=== PATIENT | female | born 1990 | race Caucasian/White ===

== ENCOUNTER → 2016-09-26 | Outpatient (CLI) | payer OTHER ==
[~2016-09-26] MED LIST: ALBUAER19 INH; AMOX875T PO; ATV/1 PO; BSP/10 PO; CHOL20007 PO; CITA40TA4 PO; CLC/300 PO; CLR10 PO; ETONMIS VAGRING; HYDR-5688 PO; INSDGIPEN SC; LEUP11.23 INJ; LORA-741 PO; LXP10 PO; METF-384 PO; NORE5TAB5 PO; PRAZ2CAP2 PO; TRIA1SPR4 NAE; VST25HP PO
== END | disposition home or self-care (01) ==
LOC: C.PAPS 14:22
PROVIDERS: ATTEND Obstetrics & Gynecology
DX: Z12.4 Encounter for screening for malignant neoplasm of cervix (principal)

== ENCOUNTER → 2016-09-26 | Outpatient (CLI) | payer OTHER ==
[2016-09-26 14:31] LABS: URINE APPEARANCE CLEAR (CLEAR); URINE BILIRUBIN NEG (NEG); URINE COLOR YELLOW; URINE NITRITE NEG (NEG); URINE PH 5.5 (4.5-7.5); URINE SPECIFIC GRAVITY 1.025 (1.000-1.030); UROBILINOGEN NEG (NEG)
[2016-09-26 14:48] LABS: MANUAL MICROSCOPIC REQUIRED? NO; REVIEW REQ? NO
== END | disposition home or self-care (01) ==
LOC: C.LABSPEC 13:22
PROVIDERS: ATTEND Obstetrics & Gynecology
DX: R39.9 Unspecified symptoms and signs involving the genitourinary system (principal)

== ENCOUNTER → 2016-10-24 | Outpatient (CLI) | payer OTHER ==
[2016-10-24 12:07] LABS: CHOLESTEROL/HDL RATIO 2.2
== END | disposition home or self-care (01) ==
LOC: C.LAB1850 10:12
PROVIDERS: ATTEND Family Medicine
DX: Z00.00 Encounter for general adult medical examination without abnormal findings (principal)

== ENCOUNTER 2016-11-12 19:19 | Emergency (ER) | payer OTHER ==
[~2016-11-12] VITALS: Ht 154.9 cm; Wt 67.7 kg
[~2016-11-12 19:19] MED LIST changes: -AMOX875T PO; -ATV/1 PO; -CHOL20007 PO; -CLC/300 PO; -INSDGIPEN SC; -LEUP11.23 INJ; -LXP10 PO; -NORE5TAB5 PO; -PRAZ2CAP2 PO; -VST25HP PO
[2016-11-12 19:24] VITALS: TEMP 37; Ht 154.9 cm; Wt 67.7 kg
[2016-11-12] MEDS ORDERED: CLC/300 PO (19:44)
[2016-11-12] MEDS ORDERED: AMOX875T PO (19:59)
[2016-11-12] MEDS ORDERED: AMOXICIL/CLAVU 875MG HOME PACK PO ONE (20:00)
[2016-11-12 20:33] VITALS: BP 114/72; PULSE 79; O2SAT 98
--- NOTE | 2016-11-12 20:38 | EMERGENCY ROOM VISIT NOTE ---
History First contact with patient: 19:43 Chief Complaint: SINUS CONGESTION/PRESSURE Stated Complaint: SINUSES,CHEST CONGESTION,HEADACHE Nursing Triage Summary: Patient ambulatory to triage, states "I am having chest pains with pain when I breathe. My ears are hurting. I have been queezy today. I am basically here for a chest xray." History of Present Illness The patient is a 26 year old female who presents to the Emergency Room with complaints of persistent sinus congestion and yellow productive cough. The patient reports that she has been dealing with a sinus infection for the past month. She was recently treated with clindamycin antibiotics without relief of her symptoms. She has had a productive cough for the past 2 weeks. She denies any headaches, fevers or chills. She rates her overall discomfort a 4 out of 10. Review of Systems 10 system review was performed and was negative except for pertinent positives and negatives as indicated in history of present illness Past Medical/Surgical History Medical Problems: (1) Asthma (2) Endometriosis (3) History of - tubal ligation (4) Left ovary removal (5) Pneumonia Surgical Problems: (1) H/O section (2) S/P laparoscopy Family History Cancer Diabetes mellitus Gallbladder disease Heart disease Hypertension Kidney disease Kidney stones Lung disease Seizures Social History Smoking Status: Never Smoker Alcohol Use: none Drug Use: none Marital Status: Housing Status: lives with family Occupation Status: unemployed Current/Historical Medications Scheduled Amoxicillin & Pot Clavulanate (Augmentin 875-125 mg), 1 TAB PO BID Buspirone HCl (Buspirone HCl), 10 MG PO HS Citalopram (Citalopram Hydrobromide), 40 MG PO HS Clindamycin HCl (Clindamycin HCl), 1 CAP PO QID Hydroxyzine HCl (Hydroxyzine Pamoate), 50 MG PO HS Loratadine (Claritin), 10 MG PO DAILY Metformin Hcl (Glucophage), 1,000 MG PO DAILY Prazosin Hcl (Prazosin), 2 MG PO HS Scheduled PRN Albuterol Inhaler (Ventolin Inhaler), 2-6 PUFFS INH for chest tightness,sob, mucus Lorazepam (Ativan), 0.5 MG PO TID PRN for Anxiety Triamcinolone Acetonide (Nasal (Nasacort Allergy 24Hr), 1 SPRAY NGA DAILY PRN for Nasal Congestion Allergies Coded Allergies: Cat Dander (Verified Allergy, Intermediate, HIVES, CONGESTION, 11/12/16) Dog Dander (Verified Allergy, Intermediate, HIVES, CONGESTION, 11/12/16) Grass (Verified Allergy, Intermediate, HIVES,CONGESTION, 11/12/16) Physical Exam Vital Signs Date Time Temp Pulse Resp B/P Pulse Ox O2 Delivery O2 Flow Rate FiO2 11/12/16 19:24 97 Room Air 11/12/16 19:24 37.0 94 18 121/73 97 Room Air Physical Exam CONSTITUTIONAL: Healthy and well nourished. Alert and oriented X 3 with positive affect. Patient does not appear acutely or toxic. HEENT: Normocephalic, atraumatic. Pupils equal, round and reactive. No facial edema noted. The patient has mild tenderness to palpation and percussion of the maxillary sinuses. Examination of the ears shows TM bulging without air-fluid levels or purulent effusion. OROPHARYNX: Minimal posterior pharyngeal erythema. No postnasal drip appreciated. NECK: Full active range of motion without discomfort. RESPIRATORY: Clear to auscultation bilaterally with no wheezing, crackles, rhonchi or stridor. CARDIOVASCULAR: Regular rate and rhythm with no murmurs, rubs or gallops. GASTROINTESTINAL: Bowel sounds present in all quadrants. Soft and nontender to palpation. MUSCULOSKELETAL: Full range of motion of all joints without discomfort. INTEGUMENTARY: No rash or other significant dermatologic conditions noted. NEUROLOGIC: No focal neurologic deficits noted. Medical Decision & Procedures Medications Administered Medications (Trade) Dose Ordered Sig/Dinah Route Start Time Stop Time Status Last Admin Dose Admin Amoxicillin/ Clavulanate Potassium (Augmentin 875MG Home Pack) 1 homepack UD ONCE PO 11/12/16 20:00 11/12/16 20:02 DC 11/12/16 20:29 1 HOMEPACK ED Course Patient history and physical exam were performed. Nurse's notes were reviewed. Vital signs were reviewed and were normal. I did elect to treat the patient with Augmentin antibiotics. She was instructed to continue follow-up with her ENT physician for further management. Ibuprofen and Tylenol in alternating fashion if needed for additional relief. The patient was happy with plan of care, and voiced understanding of all discharge instructions. Impression Primary Impression: Acute sinusitis treated with antibiotics in the past 60 days Departure Information Dispostion Home / Self-Care Prescriptions Amoxicillin & Pot Clavulanate (Augmentin 875-125 mg) 1 Tab Tab 1 TAB PO BID for 10 Days, #20 TAB Prov: Ramy Crump PA 11/12/16 Forms HOME CARE DOCUMENTATION FORM, IMPORTANT VISIT INFORMATION Patient Instructions My [facility] Additional Instructions Complete all Augmentin antibiotics as prescribed. Continue with your current treatment regimen as recommended by your ENT physician. Ibuprofen 800 mg and/or Tylenol 1000 mg every 8 hours. You may also alternate these medications for more effective pain relief: Ibuprofen --4 HRS--> Tylenol --4 HRS--> ibuprofen --4 HRS--> Tylenol .... Follow-up with your ENT in 10-14 days for reevaluation, sooner for any worsening symptoms. FOR WORK: Patient was in the emergency department today, Saturday11/12/16 from 7: 20-8:20 pm.
[2017-04-28] MEDS ORDERED: VST25HP PO (15:33)
[2017-04-28] MEDS ORDERED: PRAZ2CAP2 PO (15:33)
== END 2016-11-12 20:35 | disposition home or self-care (01) ==
LOC: C.EDB 19:21 → C.EDD 20:35
DX: J01.90 Acute sinusitis, unspecified (principal); J45.909 Unspecified asthma, uncomplicated; Z90.721 Acquired absence of ovaries, unilateral; Z87.01 Personal history of pneumonia (recurrent); Z83.3 Family history of diabetes mellitus; Z84.1 Family history of disorders of kidney and ureter

== ENCOUNTER 2016-12-04 10:39 | Emergency (ER) | payer OTHER ==
[~2016-12-04] VITALS: Ht 156.2 cm; Wt 64.8 kg
[~2016-12-04 10:39] MED LIST changes: +CLC/300 PO; -ETONMIS VAGRING; -HYDR-5688 PO
[2016-12-04 10:45] VITALS: Ht 156.2 cm; Wt 64.8 kg
[2016-12-04] MEDS ORDERED: SODIUM CHLORIDE 0.9% 1000ML 1,000 ML IV STA ×2 (11:23→12:11)
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
[2016-12-04 11:56] VITALS: O2SAT 95
[2016-12-04 11:58] VITALS: TEMP 36.8
[2016-12-04 12:01] LABS: BASO % 0.1 %; BASO ABS # 0.01 K/uL (0-0.2); COMPLETE YES; EOS % 2.4 %; IG% 0.3 %; LYMPH % 28.8 %; LYMPH ABS # 2.03 K/uL (1.2-3.4); MEAN CELL VOLUME 89.8 fL (80-100); MEAN CORPUSCULAR HEMOGLOBIN 30.7 pg (25-34); MEAN CORPUSCULAR HGB CONC 34.2 g/dl (32-36); MEAN PLATELET VOLUME 10.3 fL (7.4-10.4); MONO % 7.1 %; NEUT % 61.3 %; PLATELET COUNT 225 K/uL (130-400); RED BLOOD COUNT 4.23 M/uL (4.2-5.4); WHITE BLOOD COUNT 7.05 K/uL (4.8-10.8)
[2016-12-04 12:03] LABS: URINE APPEARANCE CLEAR (CLEAR); URINE BILIRUBIN NEG (NEG); URINE COLOR YELLOW; URINE NITRITE NEG (NEG); URINE PH 8.5 (4.5-7.5); UROBILINOGEN NEG (NEG)
[2016-12-04 12:11] LABS: MANUAL MICROSCOPIC REQUIRED? NO; REVIEW REQ? NO
[2016-12-04 12:21] LABS: ALT/SGPT 17 U/L (12-78); BLOOD UREA NITROGEN 10 mg/dl (7-18); BUN/CREATININE RATIO 12.7 (10-20); CALCIUM 9.7 mg/dl (8.5-10.1); CARBON DIOXIDE 28 mmol/L (21-32); CHLORIDE 106 mmol/L (98-107); CREATININE 0.82 mg/dl (0.60-1.20); GLUCOSE 102 mg/dl (70-99); POTASSIUM 3.8 mmol/L (3.5-5.1); SODIUM 140 mmol/L (136-145)
[2016-12-04 12:29] LABS: BENZODIAZEPINE, URINE NEG (NEG); COCAINE,URINE NEG (NEG); PHENCYCLIDINE, URINE NEG (NEG)
[2016-12-04 12:32] LABS: ALKALINE PHOSPHATASE 75 U/L (45-117); AST/SGOT 13 U/L (15-37)
[2016-12-04] MEDS ORDERED: LORAZEPAM 1 MG TAB SL STA (14:38)
[2016-12-04] MEDS ORDERED: ATV/1 PO (14:41)
[2016-12-04 15:00] VITALS: BP 119/72; PULSE 96; O2SAT 98
[2017-04-28] MEDS ORDERED: VST25HP PO (15:33)
[2017-04-28] MEDS ORDERED: PRAZ2CAP2 PO (15:33)
== END 2016-12-04 15:30 | disposition home or self-care (01) ==
LOC: C.EDB 10:41 → C.EDA 15:30
DX: R42 Dizziness and giddiness (principal); F41.9 Anxiety disorder, unspecified; I95.1 Orthostatic hypotension; J45.909 Unspecified asthma, uncomplicated; Z83.3 Family history of diabetes mellitus; Z82.49 Family history of ischemic heart disease and other diseases of the circulatory system; Z82.0 Family history of epilepsy and other diseases of the nervous system; F17.200 Nicotine dependence, unspecified, uncomplicated

== ENCOUNTER → 2016-12-11 | Outpatient (CLI) | payer OTHER ==
[~2016-12-11] MED LIST changes: +AMOX875T PO; +ATV/1 PO; +CHOL20007 PO; -CLC/300 PO; +INSDGIPEN SC; +LEUP11.23 INJ; +LXP10 PO; +NORE5TAB5 PO; +PRAZ2CAP2 PO; +VST25HP PO
[2016-12-11 09:46] LABS: ALT/SGPT 17 U/L (12-78); AST/SGOT 12 U/L (15-37); BLOOD UREA NITROGEN 13 mg/dl (7-18); BUN/CREATININE RATIO 16.5 (10-20); CALCIUM 8.8 mg/dl (8.5-10.1); CARBON DIOXIDE 27 mmol/L (21-32); CHLORIDE 107 mmol/L (98-107); CREATININE 0.78 mg/dl (0.60-1.20); GLUCOSE 101 mg/dl (70-99); POTASSIUM 3.8 mmol/L (3.5-5.1); SODIUM 141 mmol/L (136-145)
[2016-12-11 09:49] LABS: ALB/GLOB RATIO 1.1 (0.9-2); ALKALINE PHOSPHATASE 65 U/L (45-117)
[2016-12-11 10:23] LABS: ESTIMATED AVERAGE GLUCOSE 114 mg/dl; HA1C FLAG Normal (Normal)
== END | disposition home or self-care (01) ==
LOC: C.LAB1850 08:37
PROVIDERS: ATTEND Family Medicine
DX: E11.9 Type 2 diabetes mellitus without complications (principal); E55.9 Vitamin D deficiency, unspecified

== ENCOUNTER 2017-02-16 14:03 | Emergency (ER) | payer OTHER ==
[~2017-02-16] VITALS: Ht 154.9 cm; Wt 66.0 kg
[~2017-02-16 14:03] MED LIST changes: -AMOX875T PO; -ATV/1 PO; -CHOL20007 PO; -INSDGIPEN SC; -LEUP11.23 INJ; -LXP10 PO; -NORE5TAB5 PO; -PRAZ2CAP2 PO; -VST25HP PO
[2017-02-16 14:07] VITALS: TEMP 36.7; Ht 154.9 cm; Wt 66.0 kg
--- NOTE | 2017-02-16 15:03 | DIAGNOSTIC IMAGING REPORT ---
RIGHT ANKLE 3 VIEWS HISTORY: Right ankle pain. Injury. COMPARISON: None. FINDINGS: There is no fracture or dislocation. Lateral soft tissue swelling. No radiopaque foreign bodies. IMPRESSION: No fractures. Electronically signed by: Noé Mcmanus M.D. 02/16/2017 3:02 PM Dictated Date/Time: 02/16/2017 3:01 PM
[2017-02-16] MEDS ORDERED: IBUPROFEN 600 MG TAB PO STA (15:20)
[2017-02-16 15:39] VITALS: BP 117/64; PULSE 98; O2SAT 98
--- NOTE | 2017-02-16 17:37 | EMERGENCY ROOM VISIT NOTE ---
ED Visit Note First contact with patient: 15:16 Chief complaint: Right ankle pain. HPI: This 26-year-old white female presents to the emergency room for evaluation of her right ankle. The patient injured the ankle today around noon. She was walking and stepped in a hole, inverting her ankle. Since that time, they have had persistent pain over the lateral portion of the ankle. She denies any numbness or tingling. Pain is worse with weight-bearing. She has been walking with a limp. no knee or hip pain. There was a snap with injury. Treatment has consisted of ice provided in the ER. No prior history of significant ankle injury. Pain is 9/10. REVIEW OF SYSTEM: HEENT: No dizziness, visual problems, hearing loss, tinnitus. There is no difficulty swallowing and no oral lesions are present. PULMONARY: No cough, shortness of breath, sputum production or hemoptysis. CARDIOVASCULAR: No chest pain, palpitations, shortness of breath or peripheral edema. GASTROINTESTINAL: No diarrhea, constipation, nausea, vomiting, or abdominal pain. GENITOURINARY: No dysuria, frequency, urgency or nocturia. NEUROLOGIC: No weakness, muscle tenderness, epilepsy or history of neurological problems. MUSCULOSKELETAL: No history of joint tenderness/swelling. No history of arthritis or arthralgias. SKIN: No rashes or lesions. PSYCHIATRIC: No history of depression or mental illness. ENDOCRINE: No history of thyroid disorders, abnormal hair growth. PAST MEDICAL HISTORY: Supplemental sheet was reviewed and signed. Previous surgeries: None Medical history: Significant for diabetes, history of bronchitis, history of pneumonia, and asthma Current medications: Filed in patient's chart Allergies: NKDA Family history: Significant for diabetes, heart disease, hypertension, cancer, lung disease, kidney stones, and seizure history Social history: Unemployed. . No tobacco use. PHYSICAL EXAM: Vitals: Afebrile. Reviewed and filed in patient's chart General: Well-developed, well-nourished, young white female, in obvious discomfort. No acute distress. She is laying on a bed. Alert and oriented. Skin:Warm and dry with good turgor. No rashes or lesions. No erythema. The patient is not diaphoretic. No abrasions. Edema is present over the lateral and posterior ankle. Musculoskeletal: Right ankle evaluation reveals no pain with palpation across the knee or proximal tibia or fibula. There is pain with palpation over the lateral malleolus and the lateral ligaments. No pain over the medial malleolus or deltoid ligament. Achilles' tendon is palpated to its entirety and found to be intact and without defect. Normal Storey test. No pain with palpation of the calcaneus, fifth metatarsal base, midfoot, forefoot, or toes. Motor function to the toes is intact and unremarkable. Motor function to the ankle is intact but range of motion is limited by pain. Strength is 5/5 for resisted motion. Positive anterior drawer, negative calcaneal tilt. Neurologic: Gross sensation is intact across all aspects of the foot and ankle via soft touch. Peripheral pulses are 2+. Data: Radiographic images of the ankle were obtained today and were reviewed by me as well as radiology. They are unremarkable for fracture or other bony abnormality. IMPRESSION: Right ankle sprain. PLAN: The patient was educated regarding today's findings. Conservative care measures were discussed. Patient was given an Gino wrap for edema control and will use this for the next 5 days. Ankle gel splint was also applied and will be used for support for the next 3 weeks. It may be removed for bathing and sleep. It should be used for a few additional weeks for sporting events only. Crutches were fitted and crutch instruction was reviewed. Discontinue crutch use when she is able to walk without a limp. Weight-bear as tolerable. Gentle motion daily. Ice and elevate intermittently over the next 3 days, after which she may switch to moist heat. Lower leg should be elevated at night during sleep. Tylenol and ibuprofen every 6 hours as needed for discomfort. Sprain handout was provided. Return to the ER for any acute changes. Follow-up with her PCP or orthopedist if not improving in 5 to 7 days. She was reassured that I do not suspect fracture or tendon rupture at this time. Problem List Medical Problems: (1) Asthma Status: Chronic (2) Endometriosis Status: Chronic (3) History of - tubal ligation Status: Resolved (4) Left ovary removal Status: Resolved (5) Pneumonia Status: Resolved Surgical Problems: (1) H/O section Status: Resolved (2) S/P laparoscopy Status: Resolved Current/Historical Medications Scheduled Buspirone HCl (Buspirone HCl), 10 MG PO HS Citalopram (Citalopram Hydrobromide), 40 MG PO HS Hydroxyzine HCl (Hydroxyzine Pamoate), 50 MG PO HS Loratadine (Claritin), 10 MG PO DAILY Metformin Hcl (Glucophage), 1,000 MG PO DAILY Prazosin Hcl (Prazosin), 2 MG PO HS Scheduled PRN Albuterol Inhaler (Ventolin Inhaler), 2-6 PUFFS INH for chest tightness,sob, mucus Lorazepam (Ativan), 0.5 MG PO TID PRN for Anxiety Triamcinolone Acetonide (Nasal (Nasacort Allergy 24Hr), 1 SPRAY NGA DAILY PRN for Nasal Congestion Allergies Coded Allergies: Cat Dander (Verified Allergy, Intermediate, HIVES, CONGESTION, 12/04/16) Dog Dander (Verified Allergy, Intermediate, HIVES, CONGESTION, 12/04/16) Grass (Verified Allergy, Intermediate, HIVES,CONGESTION, 12/04/16) Vital Signs Date Time Temp Pulse Resp B/P (MAP) Pulse Ox O2 Delivery O2 Flow Rate FiO2 02/16/17 15:39 98 18 117/64 98 Room Air 02/16/17 14:07 36.7 73 16 109/65 100 Room Air Medications Administered Medications (Trade) Dose Ordered Sig/Dinah Route Start Time Stop Time Status Last Admin Dose Admin Ibuprofen (Motrin Tab) 600 mg NOW STAT PO 02/16/17 15:20 02/16/17 15:25 DC 02/16/17 15:38 600 MG Departure Information Impression Primary Impression: Right ankle sprain Dispostion Home / Self-Care Condition FAIR Forms HOME CARE DOCUMENTATION FORM, MOTRIN USE, TYLENOL USE, IMPORTANT VISIT INFORMATION Patient Instructions My [facility] [employer] Additional Instructions Use crutches until you can walk without a limp- weight-bear as tolerable Ice and elevate intermittently x3 days, and then use moist heat Tylenol and ibuprofen every 6 hours as needed for pain Gentle motion daily See your PCP or orthopedist if not improving over 5-7 days Use gel splint at all times other than bathing and sleep for 4 weeks, and then use it for an additional 2 weeks for any sporting activity
[2017-04-28] MEDS ORDERED: VST25HP PO (15:33)
[2017-04-28] MEDS ORDERED: PRAZ2CAP2 PO (15:33)
== END 2017-02-16 15:48 | disposition home or self-care (01) ==
LOC: C.EDB 14:05 → C.EDD 15:48
DX: S93.401A Sprain of unspecified ligament of right ankle, initial encounter (principal); X58.XXXA Exposure to other specified factors, initial encounter; E11.9 Type 2 diabetes mellitus without complications; J45.909 Unspecified asthma, uncomplicated; Z83.3 Family history of diabetes mellitus; Z82.49 Family history of ischemic heart disease and other diseases of the circulatory system; Z84.1 Family history of disorders of kidney and ureter; Z82.0 Family history of epilepsy and other diseases of the nervous system; Z80.9 Family history of malignant neoplasm, unspecified; Z98.51 Tubal ligation status; Z98.890 Other specified postprocedural states; Z79.899 Other long term (current) drug therapy; Z91.09 Other allergy status, other than to drugs and biological substances

== ENCOUNTER → 2017-04-08 | Outpatient (CLI) | payer OTHER ==
[~2017-04-08] MED LIST changes: +AMOX875T PO; +CHOL20007 PO; +INSDGIPEN SC; +LEUP11.23 INJ; +LXP10 PO; +NORE5TAB5 PO; +PRAZ2CAP2 PO; +VST25HP PO
[2017-04-10 03:03] LABS: CHLAMYDIA TRACH RNA*** NOT DETECTED (NOT DETECTED); GC (NEIS GONORRHOEAE)RNA** NOT DETECTED (NOT DETECTED)
== END | disposition home or self-care (01) ==
LOC: C.LAB1850 09:16
PROVIDERS: ATTEND Physician Assistant
DX: Z11.3 Encounter for screening for infections with a predominantly sexual mode of transmission (principal)

== ENCOUNTER 2017-04-28 19:19 | Emergency (ER) | payer OTHER ==
[~2017-04-28] VITALS: Ht 154.9 cm; Wt 64.9 kg
[~2017-04-28 19:19] MED LIST changes: -AMOX875T PO; -CHOL20007 PO; -INSDGIPEN SC; -LEUP11.23 INJ; -LXP10 PO; -NORE5TAB5 PO
[2017-04-28 19:25] VITALS: TEMP 37.1; Ht 154.9 cm; Wt 64.9 kg
[2017-04-28] MEDS ORDERED: LORAZEPAM 1 MG TAB SL STA (19:44)
[2017-04-28] MEDS ORDERED: LXP10 PO (19:51)
[2017-04-28] MEDS ORDERED: NORE5TAB5 PO (19:52)
[2017-04-28] MEDS ORDERED: CHOL20007 PO (19:52)
[2017-04-28] MEDS ORDERED: LEUP11.23 INJ (19:58)
--- NOTE | 2017-04-28 20:02 | EMERGENCY ROOM VISIT NOTE ---
History Report prepared by Debo: Tomer Mary Under the Supervision of: Dr. Sony Ward M.D. First contact with patient: 19:40 Chief Complaint: ANXIETY Stated Complaint: ANXIETY ATTACKS, CHEST PAIN, SHAKING History of Present Illness The patient is a 26 year old female who presents to the Emergency Room with complaints of intermittent anxiety attacks that having been occurring for five days. She rates her discomfort as a 4/10 in severity. She states that she has sharp chest pains that last for 2-3 seconds, stop, and come back sporadically, including underneath hear breast and in the middle of her chest. The patient states that these symptoms started when she found out her boyfriend cheated on her and she had a panic attack at work. The patient states that she has also been tachycardic and her heart rate was in the 160s when she was in court a week ago. She states that she has a history of asthma, which she uses an inhaler for, but denies any relief of anxiety symptoms. The patient states that she used to take Ativan, which would help her symptoms, but states that she is not on it anymore. She states that she has a history of PTSD, anxiety, and depression. The patient admits to taking Prazosin at night for sleep. She reports that she takes her antidepressant twice a day, but denies any relief of anxiety symptoms. The patient admits that she smokes and has been smoking more frequently due to her anxiety. She denies any chest trauma, cough, and suicidal or homicidal ideations. Source of History: patient Onset: five days ago Position: other (global) Symptom Intensity: 4/10 Timing: intermittent Modifying Factors (Relieving): other (Ativan) Associated Symptoms: + chest pain, No cough Review of Systems See HPI for pertinent positives & negatives. A total of 10 systems reviewed and were otherwise negative. Past Medical & Surgical Medical Problems: (1) Asthma (2) Endometriosis (3) History of - tubal ligation (4) Left ovary removal (5) Pneumonia Surgical Problems: (1) H/O section (2) S/P laparoscopy Family History Cancer Diabetes mellitus Gallbladder disease Heart disease Hypertension Kidney disease Kidney stones Lung disease Seizures Social History Smoking Status: Current Every Day Smoker Alcohol Use: none Drug Use: none Marital Status: Housing Status: lives with family Occupation Status: unemployed Current/Historical Medications Scheduled Cholecalciferol (Vitamin D3), 2,000 INTER.UNIT PO DAILY Escitalopram Oxalate (Escitalopram Oxalate), 10 MG PO QAM Leuprolide Acetate (Lupron Depot), 1 DOSE INJ UD Norethindrone (Aygestin), 5 MG PO DAILY Prazosin Hcl (Prazosin), 2 MG PO HS Scheduled PRN Hydroxyzine HCl (Hydroxyzine Pamoate), 50 MG PO BID PRN for Anxiety Allergies Coded Allergies: Cat Dander (Verified Allergy, Intermediate, HIVES, CONGESTION, 12/04/16) Dog Dander (Verified Allergy, Intermediate, HIVES, CONGESTION, 12/04/16) Grass (Verified Allergy, Intermediate, HIVES,CONGESTION, 12/04/16) Physical Exam Vital Signs Date Time Temp Pulse Resp B/P (MAP) Pulse Ox O2 Delivery O2 Flow Rate FiO2 04/28/17 20:50 80 19 111/71 98 04/28/17 19:25 37.1 91 19 119/80 97 Room Air Physical Exam GENERAL: Patient is in no acute distress. HEENT: No acute trauma, normocephalic atraumatic, mucous membranes moist, no nasal congestion, no scleral icterus. NECK: No stridor, no adenopathy, no meningismus, trachea is midline. LUNGS: Clear to auscultation bilaterally, no wheeze, no rhonchi, breath sounds equal. HEART: Subtle systolic murmur. Regular rate and rhythm. ABDOMEN: Soft, nontender, bowel sounds positive, no hernias, no peritonitis. EXTREMITIES: No cyanosis or edema, full range of motion of all the joints without pain or difficulty, no signs for acute trauma. NEUROLOGIC: Oriented x 3, no acute motor or sensory deficits, no focal weakness. SKIN: No rash, no jaundice, no diaphoresis. PSYCH: Slightly anxious. Denies being suicidal. Cooperative. Medical Decision & Procedures Medications Administered Medications (Trade) Dose Ordered Sig/Dinah Route Start Time Stop Time Status Last Admin Dose Admin Lorazepam (Ativan Tab) 1 mg NOW STAT SL 04/28/17 19:44 04/28/17 19:47 DC 04/28/17 19:58 1 MG ECG Indication: chest pain Rate (beats per minute): 70 Rhythm: sinus with SA Findings: no acute ischemic change, no ectopy ED Course 1940: The patient was evaluated in room C12. A complete history and physical exam was performed. 1943: Ativan Tab 1 mg SL. 2044: Lorazepam 1 homepack PO. Medical Decision The patient is a 26 year old female who presents to the ED with complaints of intermittent anxiety attacks that began five days ago. Differential diagnoses considered include anxiety, panic attack, cardiac ischemia, pneumothorax, PE, and CT. The patient presents with days of fleeting chest pain. The pain has been in different areas across the chest both the right and left side. She has felt anxious and believes she has been suffering from anxiety. On exam, her lungs are clear, her heart is regular. EKG shows a sinus rhythm, there is no acute ischemia. The patient's vital signs were normal. She did not seem in any distress, she has not been sick or ill. She admits to increased stress in her life as of late. She denies suicidal or homicidal ideation. The patient was given an Ativan sublingual. She'll be discharged with a few Ativan tablets to use for severe anxiety attacks. She was encouraged to follow with her psychiatrist and family doctor for follow-up. She was encouraged to return for suicidal or homicidal ideation. Her presentation is consistent with anxiety/panic. Medication Reconcilliation Current Medication List: was personally reviewed by me Blood Pressure Screening Patient's blood pressure: Normal blood pressure Impression Primary Impression: Anterior chest wall pain Additional Impression: Anxiety Scribe Attestation The scribe's documentation has been prepared under my direction and personally reviewed by me in its entirety. I confirm that the note above accurately reflects all work, treatment, procedures, and medical decision making performed by me. Departure Information Dispostion Home / Self-Care Referrals RV. Toavr MD (PCP) Forms HOME CARE DOCUMENTATION FORM, IMPORTANT VISIT INFORMATION Patient Instructions My [facility] Additional Instructions ativan as needed for severe anxiety return if worsening or feel suicidal talk with your doctor about med changes and followup off work tomorrow, Saturday. Problem Qualifiers
[2017-04-28] MEDS ORDERED: ATIVAN 1MG HOMEPACK PO ONE (20:45)
[2017-04-28 20:50] VITALS: BP 111/71; PULSE 80; O2SAT 98
== END 2017-04-28 20:50 | disposition home or self-care (01) ==
LOC: C.EDB 19:22 → C.EDC 20:50
DX: R07.89 Other chest pain (principal); F41.9 Anxiety disorder, unspecified; F32.9 Major depressive disorder, single episode, unspecified; J45.909 Unspecified asthma, uncomplicated; N80.9 Endometriosis, unspecified; F17.200 Nicotine dependence, unspecified, uncomplicated; Z87.01 Personal history of pneumonia (recurrent); Z98.51 Tubal ligation status; Z98.818 Other dental procedure status; Z98.890 Other specified postprocedural states; Z83.3 Family history of diabetes mellitus; Z82.49 Family history of ischemic heart disease and other diseases of the circulatory system; Z84.1 Family history of disorders of kidney and ureter; Z82.0 Family history of epilepsy and other diseases of the nervous system; Z79.899 Other long term (current) drug therapy

== ENCOUNTER 2017-05-30 14:01 | Emergency (ER) | payer OTHER ==
[~2017-05-30] VITALS: Ht 154.9 cm; Wt 67.0 kg
[~2017-05-30 14:01] MED LIST changes: -ALBUAER19 INH; -BSP/10 PO; +CHOL20007 PO; -CITA40TA4 PO; -CLR10 PO; +LEUP11.23 INJ; -LORA-741 PO; +LXP10 PO; -METF-384 PO; +NORE5TAB5 PO; -TRIA1SPR4 NAE
[2017-05-30 14:06] VITALS: TEMP 36.6; Ht 154.9 cm; Wt 67.0 kg
[2017-05-30] MEDS ORDERED: SODIUM CHLORIDE 0.9% 1000ML 1,000 ML IV STA (14:32)
[2017-05-30] MEDS ORDERED: ALBUT/IPRATROP 3MG/0.5MG NEB 3 ML VIAL INH STA (14:32)
[2017-05-30 14:57] LABS: URINE APPEARANCE CLEAR (CLEAR); URINE BILIRUBIN NEG (NEG); URINE COLOR YELLOW; URINE NITRITE NEG (NEG); URINE PH 6.5 (4.5-7.5); URINE SPECIFIC GRAVITY 1.013 (1.000-1.030); UROBILINOGEN NEG (NEG); ZZUR CULT IF INDIC CLEAN CATCH NO
[2017-05-30 15:04] LABS: MANUAL MICROSCOPIC REQUIRED? NO; REVIEW REQ? YES
[2017-05-30 15:28] LABS: BASO % 0.3 %; BASO ABS # 0.03 K/uL (0-0.2); COMPLETE YES; HEMATOCRIT 40.6 % (37-47); IG% 0.4 %; LYMPH % 18.8 %; MEAN CELL VOLUME 90.8 fL (80-100); MEAN CORPUSCULAR HEMOGLOBIN 30.2 pg (25-34); MEAN CORPUSCULAR HGB CONC 33.3 g/dl (32-36); MEAN PLATELET VOLUME 10.2 fL (7.4-10.4); MONO % 10.3 %; NEUT % 66.2 %; PLATELET COUNT 225 K/uL (130-400); RED BLOOD COUNT 4.47 M/uL (4.2-5.4)
[2017-05-30 15:44] LABS: BUN/CREATININE RATIO 13.7 (10-20); CALCIUM 9.9 mg/dl (8.5-10.1); CREATININE 1.1 mg/dl (0.60-1.20); POTASSIUM 4.1 mmol/L (3.5-5.1)
[2017-05-30] MEDS ORDERED: OPTIRAY 320 IV PRN (16:00)
--- NOTE | 2017-05-30 16:23 | DIAGNOSTIC IMAGING REPORT ---
CT ANGIOGRAM OF THE CHEST CLINICAL HISTORY: Syncope. Elevated d-dimer. COMPARISON STUDY: 03/05/2016 TECHNIQUE: Following the IV administration of 100 mL of Optiray-320, CT angiogram of the thorax was performed from the thoracic inlet to the lung bases utilizing the pulmonary embolus protocol. Images are reviewed in the axial, sagittal, and coronal planes. IV contrast was administered without complication. MIP imaging was performed. A dose lowering technique was utilized adhering to the principles of ALARA. CT DOSE: 187.83 mGy.cm FINDINGS: No pathologically enlarged axillary mediastinal or hilar lymph nodes were visualized. There was no evidence of thoracic aortic dilatation. There were no pulmonary artery filling defects to indicate acute pulmonary embolism. No pleural effusions are visualized. There was no evidence of focal pulmonary consolidation. IMPRESSION: 1. No acute intrathoracic findings 2. No evidence of acute pulmonary embolism 3. No evidence of focal pulmonary consolidation Electronically signed by: Jhon Moraes M.D. 05/30/2017 4:22 PM Dictated Date/Time: 05/30/2017 4:17 PM
[2017-05-30] MEDS ORDERED: AMOX875T PO (16:56)
--- NOTE | 2017-05-30 16:58 | EMERGENCY ROOM VISIT NOTE ---
History First contact with patient: 14:12 Chief Complaint: HYPERGLYCEMIA Stated Complaint: HIGH/LOW SUGAR, ASTHMA, BLACKING OUT Nursing Triage Summary: triage note: pt reports nausea, vomitting, diarrhea for several days. pt reports "i blacked out 2-3 times last night, last they called an ambulance and i bailed on it, i think i have diabetic ketoacidosis." bsg [id number] at 1305 today. History of Present Illness The patient is a 27 year old female who presents to the Emergency Room with multiple complaints. The patient states that she is a type II diabetic and she has had both high and low blood sugars over the past few days. She states that last night, her glucose was 308. Today, her glucoses ranged from 180-203. She takes metformin, 1000 mg twice daily. She is prescribed insulin to be taken at night, but states that she has not been taking this because she feels it is dropping her blood sugars too low. She does state that she sometimes has lows into the 40s. The patient reports that she has had a cough for the past 3 days. She has had intermittent diarrhea and vomiting for the past one week. She has been using her inhaler and Mucinex for the cough without relief. The patient states that she passed out twice last night after standing up from a sitting position. She states she has passed out before and this is not unusual for her. She states she has been eating and drinking normally. She denies any chest pain, abdominal pain, fevers or chills. She denies any headaches, neck pain/stiffness, melena or hematochezia. Review of Systems A complete 10 point review of systems was reviewed with the patient with pertinent positives and negatives as per history of present illness. All else were negative. Past Medical/Surgical History Medical Problems: (1) Asthma (2) Endometriosis (3) History of - tubal ligation (4) Left ovary removal (5) Pneumonia Surgical Problems: (1) H/O section (2) S/P laparoscopy Family History Cancer Diabetes mellitus Gallbladder disease Heart disease Hypertension Kidney disease Kidney stones Lung disease Seizures Social History Smoking Status: Current Every Day Smoker Alcohol Use: none Drug Use: none Marital Status: Housing Status: lives with family Occupation Status: unemployed Current/Historical Medications Scheduled Amoxicillin & Pot Clavulanate (Augmentin 875-125 mg), 1 TAB PO BID Cholecalciferol (Vitamin D3), 2,000 INTER.UNIT PO DAILY Escitalopram Oxalate (Escitalopram Oxalate), 10 MG PO QAM Leuprolide Acetate (Lupron Depot), 1 DOSE INJ UD Norethindrone (Aygestin), 5 MG PO DAILY Prazosin Hcl (Prazosin), 2 MG PO HS Scheduled PRN Hydroxyzine HCl (Hydroxyzine Pamoate), 50 MG PO BID PRN for Anxiety Physical Exam Vital Signs Date Time Temp Pulse Resp B/P (MAP) Pulse Ox O2 Delivery O2 Flow Rate FiO2 05/30/17 17:45 78 18 100/57 96 05/30/17 16:30 87 17 103/60 97 Room Air 05/30/17 15:13 62 13 119/64 100 Nebulizer 05/30/17 15:03 76 113/56 86 115/72 92 119/64 05/30/17 14:53 73 05/30/17 14:06 36.6 88 18 104/68 98 Room Air Physical Exam VITALS: Vitals are noted on the nurse's note and reviewed by myself. Vital signs stable. GENERAL: This is a 27-year-old female, in no acute distress, nondiaphoretic, well-developed well-nourished. SKIN: No rashes noted. HEENT: Normocephalic. PERRLA. EOMI. Mucous membranes moist. Neck is supple without nuchal rigidity. HEART: Regular rate and rhythm without murmurs gallops or rubs. LUNGS: Clear to auscultation bilaterally without wheezes, rales or rhonchi. ABDOMEN: Soft, nontender to palpation. NEURO: Patient was alert and oriented to person place and time. Medical Decision & Procedures ER Provider Diagnostic Interpretation: CT ANGIOGRAM OF THE CHEST FINDINGS: No pathologically enlarged axillary mediastinal or hilar lymph nodes were visualized. There was no evidence of thoracic aortic dilatation. There were no pulmonary artery filling defects to indicate acute pulmonary embolism. No pleural effusions are visualized. There was no evidence of focal pulmonary consolidation. IMPRESSION: 1. No acute intrathoracic findings 2. No evidence of acute pulmonary embolism 3. No evidence of focal pulmonary consolidation Laboratory Results 05/30/17 15:15 Red Blood Count 4.47, Mean Corpuscular Volume 90.8, Mean Corpuscular Hemoglobin 30.2, Mean Corpuscular Hemoglobin Concent 33.3, Mean Platelet Volume 10.2, Neutrophils (%) (Auto) 66.2, Lymphocytes (%) (Auto) 18.8, Monocytes (%) (Auto) 10.3, Eosinophils (%) (Auto) 4.0, Basophils (%) (Auto) 0.3, Neutrophils # (Auto ) 7.42, Lymphocytes # (Auto) 2.10, Monocytes # (Auto) 1.15, Eosinophils # (Auto ) 0.45, Basophils # (Auto) 0.03 05/30/17 15:15 Test 05/30/17 14:35 05/30/17 15:15 05/30/17 16:06 Urine Color YELLOW Urine Appearance CLEAR (CLEAR) Urine pH 6.5 (4.5-7.5) Urine Specific [place] 1.013 (1.000-1.030) Urine Protein NEG (NEG) Urine Glucose (UA) NEG (NEG) Urine Ketones NEG (NEG) Urine Occult Blood NEG (NEG) Urine Nitrite NEG (NEG) Urine Bilirubin NEG (NEG) Urine Urobilinogen NEG (NEG) Urine Leukocyte Esterase TRACE (NEG) Urine WBC (Auto) 1-5 /hpf (0-5) Urine RBC (Auto) 0-4 /hpf (0-4) Urine Hyaline Casts (Auto) 0 /lpf (0-5) Urine Epithelial Cells (Auto) 10-20 /lpf (0-5) Urine Bacteria (Auto) NEG (NEG) Urine Test NEG (NEG) White Blood Count 11.20 K/uL (4.8-10.8) Red Blood Count 4.47 M/uL (4.2-5.4) Hemoglobin 13.5 g/dL (12.0-16.0) Hematocrit 40.6 % (37-47) Mean Corpuscular Volume 90.8 fL (80-100) Mean Corpuscular Hemoglobin 30.2 pg (25-34) Mean Corpuscular Hemoglobin Concent 33.3 g/dl (32-36) Platelet Count 225 K/uL (130-400) Mean Platelet Volume 10.2 fL (7.4-10.4) Neutrophils (%) (Auto) 66.2 % Lymphocytes (%) (Auto) 18.8 % Monocytes (%) (Auto) 10.3 % Eosinophils (%) (Auto) 4.0 % Basophils (%) (Auto) 0.3 % Neutrophils # (Auto) 7.42 K/uL (1.4-6.5) Lymphocytes # (Auto) 2.10 K/uL (1.2-3.4) Monocytes # (Auto) 1.15 K/uL (0.11-0.59) Eosinophils # (Auto) 0.45 K/uL (0-0.5) Basophils # (Auto) 0.03 K/uL (0-0.2) RDW Standard Deviation 48.7 fL (36.4-46.3) RDW Coefficient of Variation 14.5 % (11.5-14.5) Immature Granulocyte % (Auto) 0.4 % Immature Granulocyte # (Auto) 0.05 K/uL (0.00-0.02) D-Dimer 830 ug/L FEU (0-500) Anion Gap 7.0 mmol/L (3-11) Est Creatinine Clear Calc Drug Dose 66.1 ml/min Estimated GFR () 78.6 Estimated GFR (Non- 67.8 BUN/Creatinine Ratio 13.7 (10-20) Calcium Level 9.9 mg/dl (8.5-10.1) Total Bilirubin 0.4 mg/dl (0.2-1) Aspartate Amino Transf (AST/SGOT) 10 U/L (15-37) Alanine Aminotransferase (ALT/SGPT) 13 U/L (12-78) Alkaline Phosphatase 74 U/L (45-117) Total Protein 7.8 gm/dl (6.4-8.2) Albumin 3.9 gm/dl (3.4-5.0) Globulin 3.9 gm/dl (2.5-4.0) Albumin/Globulin Ratio 1.0 (0.9-2) Bedside Glucose 139 mg/dl (70-90) Medications Administered Medications (Trade) Dose Ordered Sig/Dinah Route Start Time Stop Time Status Last Admin Dose Admin Sodium Chloride 1,000 ml @ 999 mls/hr Q1H1M STAT IV 05/30/17 14:32 05/30/17 15:32 DC 05/30/17 15:33 999 MLS/HR Albuterol/ Ipratropium (Duoneb) 3 ml NOW STAT INH 05/30/17 14:32 05/30/17 14:35 DC 9/14/17 15:05 3 ML ECG Rate (beats per minute): 69 Rhythm: normal sinus Findings: no acute ischemic change, no ectopy, other (short DE) Change: no significant change ED Course The patient was evaluated as above. Labs were drawn and IV access was obtained. Patient was medicated with 1 L normal saline solution and a DuoNeb treatment. Patient felt like her blood sugar was low. This was rechecked and was found to be 83. Patient was given orange juice and blood sugar was rechecked. Discharge instructions were reviewed with the patient. The patient verbalized understanding of my assessment and treatment plan and was discharged home in good condition. Medical Decision Differential diagnosis includes pneumonia, bronchitis, DKA, hypoglycemia, cardiac syncope, orthostatic hypotension, pulmonary embolism, among others. The patient is a 27-year-old female who presents today with multiple complaints. Labs revealed a mild leukocytosis. No concerning anemia or electrolyte abnormalities. There is no evidence to suggest that the patient is in DKA. Urinalysis was not suggestive of infection. Urine was negative. EKG was interpreted by myself and shows and normal sinus rhythm with short DE but no other acute findings. D-dimer was found to be elevated and given the patient's recent syncope, a CTA of the chest was performed. This was read by radiology with no evidence of PE. Given the patient's upper respiratory symptoms and leukocytosis, she will be placed on an antibiotic. She was instructed to follow-up closely with her primary care provider for adjustment of diabetes medications. Orthostatic vital signs were positive and this likely contributed to the syncope. She was instructed to follow-up with her primary care provider regarding this as well. Based on the patient's presentation and work up, I feel the patient is stable for outpatient treatment. The patient was educated to return to the emergency department for any worsening of their current condition or new/concerning symptoms. She will follow up with her PCP. The patient's case was reviewed with Dr. Hall, ED attending physician, who agreed with my assessment and treatment plan. Medication Reconcilliation Current Medication List: was personally reviewed by me Blood Pressure Screening Patient's blood pressure: Normal blood pressure Impression Primary Impression: Acute bronchitis Additional Impression: Syncope Departure Information Dispostion Home / Self-Care Condition GOOD Prescriptions Amoxicillin & Pot Clavulanate (Augmentin 875-125 mg) 1 Tab Tab 1 TAB PO BID for 7 Days, #14 TAB Prov: Amanda Jesus .EUGENIO 05/30/17 Referrals RV. Tovar MD (PCP) Patient Instructions My [facility] Additional Instructions You were prescribed Augmentin to be taken as prescribed. This is an antibiotic. All antibiotics have the potential to cause diarrhea. Stop this medication and contact a medical provider if you were to develop any significant adverse side effects including: wheezing, shortness of breath, passing out, vomiting, or a diffuse rash. Always take antibiotics as directed and COMPLETE the ENTIRE course regardless of the improvement of your symptoms. For pain control, you can use the following [id number] medicines (if >12 yo): - Regular strength (325mg/tab) Tylenol (acetaminophen) 2 tabs every 4-6 hours as needed. Do not exceed 12 tablets in a 24 hour period. Avoid taking more than 4 grams (4000 mg) of Tylenol per day. This includes any other sources of acetaminophen you may take on a regular basis. - Regular strength (200 mg/tab) Advil (ibuprofen) 1-2 tabs every 4-6 hours as needed. Do not exceed a dose of 3200 mg per day. Rest and drink plenty of fluids. Check your blood sugars closely. Continue medications as prescribed. Follow-up with your primary care provider early next week for a recheck and to discuss your diabetes medications. Return to the emergency department with any worsening or new/concerning symptoms. Problem Qualifiers Primary Impression: Acute bronchitis Bronchitis organism: unspecified organism Qualified Codes: J20.9 - Acute bronchitis, unspecified
[2017-05-30 17:45] VITALS: BP 100/57; PULSE 78; O2SAT 96
== END 2017-05-30 17:45 | disposition home or self-care (01) ==
LOC: C.EDB 14:04
DX: J20.9 Acute bronchitis, unspecified (principal); R55 Syncope and collapse; J45.909 Unspecified asthma, uncomplicated; Z83.3 Family history of diabetes mellitus; Z82.49 Family history of ischemic heart disease and other diseases of the circulatory system; Z82.0 Family history of epilepsy and other diseases of the nervous system; F17.200 Nicotine dependence, unspecified, uncomplicated

== ENCOUNTER 2017-06-08 18:38 | Emergency (ER) | payer OTHER ==
[~2017-06-08] VITALS: Ht 154.9 cm; Wt 65.0 kg
[2017-06-08 18:51] VITALS: TEMP 36.9; Ht 154.9 cm; Wt 65.0 kg
[2017-06-08] MEDS ORDERED: INSDGIPEN SC (19:22)
[2017-06-08] MEDS ORDERED: SODIUM CHLORIDE 0.9% 1000ML 1,000 ML IV STA (19:41)
[2017-06-08 20:15] LABS: BASO % 0.3 %; BASO ABS # 0.03 K/uL (0-0.2); COMPLETE YES; EOS % 4.2 %; HEMATOCRIT 42.8 % (37-47); IG% 0.5 %; LYMPH % 23.6 %; MEAN CORPUSCULAR HEMOGLOBIN 29.9 pg (25-34); MEAN CORPUSCULAR HGB CONC 32.5 g/dl (32-36); MONO % 6.9 %; NEUT % 64.5 %; PLATELET COUNT 301 K/uL (130-400); RED BLOOD COUNT 4.65 M/uL (4.2-5.4); WHITE BLOOD COUNT 11.01 K/uL (4.8-10.8)
--- NOTE | 2017-06-08 20:30 | EMERGENCY ROOM VISIT NOTE ---
History Report prepared by Debo: Boy Boyd Under the Supervision of: Dr. Andria Hall D.O. First contact with patient: 19:16 Chief Complaint: FOREIGNBODY ANY BODY PART Stated Complaint: COUGHING UP BLOOD,PENIS PIERCING MISSING INSIDE History of Present Illness The patient is a 27 year old female who presents to the Emergency Room with complaints of a possible foreign body in either the vagina or the anus occurring last night. The patient states that she had both vaginal and anal intercourse with her boyfriend last night who has a penis piercing, and afterwards he was missing it, and they could not find it anywhere else. She states that the piercing is an inch long with two balls at the end. She states that neither of them remember a point in time when it went missing. She denies any vaginal bleeding or discharge. She states that she tried to douche her vagina and anus and nothing came out after having a bowel movement. The patient additionally is complaining of a persistent cough over the past two weeks. She states that she is coughing up mucous, and it had blood color today. She additionally states that she coughed so hard that she vomited. She denies any fevers, chills, sore throat, or runny nose. She additionally states that she has a history of diabetes, though it is not very well controlled, and she did not take her insulin today. She states that last week she was evaluated for the cough, and she passed out from her blood sugar, though she was not in DKA. She states that she smokes and has a history of asthma and pneumonia. She has not had her flu shot yet. Source of History: patient Onset: last night Position: other (Vagina or anus) Quality: other (possible foreign body) Timing: constant Associated Symptoms: + cough, + vomiting Review of Systems See HPI for pertinent positives & negatives. A total of 10 systems reviewed and were otherwise negative. Past Medical & Surgical Medical Problems: (1) Asthma (2) Endometriosis (3) History of - tubal ligation (4) Left ovary removal (5) Pneumonia Surgical Problems: (1) H/O section (2) S/P laparoscopy Family History Cancer Diabetes mellitus Gallbladder disease Heart disease Hypertension Kidney disease Kidney stones Lung disease Seizures Social History Smoking Status: Current Every Day Smoker Alcohol Use: none Drug Use: none Marital Status: other (legally ) Housing Status: lives with family Occupation Status: unemployed Current/Historical Medications Scheduled Cholecalciferol (Vitamin D3), 2,000 INTER.UNIT PO DAILY Escitalopram Oxalate (Escitalopram Oxalate), 10 MG PO QAM Insulin Glargine (Lantus Solostar), 20 SC DAILY Leuprolide Acetate (Lupron Depot), 1 DOSE INJ UD Norethindrone (Aygestin), 5 MG PO DAILY Prazosin Hcl (Prazosin), 2 MG PO HS Scheduled PRN Hydroxyzine HCl (Hydroxyzine Pamoate), 50 MG PO BID PRN for Anxiety Allergies Coded Allergies: Cat Dander (Verified Allergy, Intermediate, HIVES, CONGESTION, 12/04/16) Dog Dander (Verified Allergy, Intermediate, HIVES, CONGESTION, 12/04/16) Grass (Verified Allergy, Intermediate, HIVES,CONGESTION, 12/04/16) Physical Exam Vital Signs Date Time Temp Pulse Resp B/P (MAP) Pulse Ox O2 Delivery O2 Flow Rate FiO2 06/08/17 22:25 86 16 113/63 99 Room Air 06/08/17 20:42 64 16 109/67 98 Room Air 06/08/17 18:51 36.9 74 18 123/75 98 Room Air Physical Exam GENERAL: alert, well appearing, well nourished, no distress, non-toxic EYE EXAM: normal conjunctiva, PERRL and EOM's grossly intact OROPHARYNX: Pierced tongue. No exudate, no erythema, lips, buccal mucosa, and tongue normal and mucous membranes are moist NECK: supple, no nuchal rigidity, no adenopathy, non-tender LUNGS: Clear to auscultation. Normal chest wall mechanics HEART: no murmurs, S1 normal and S2 normal ABDOMEN: abdomen soft, non-tender, normo-active bowel sounds, no masses, no rebound or guarding. BACK: Back is symmetrical on inspection and there is no deformity, no midline tenderness, no CVA tenderness. SKIN: no rashes and no bruising UPPER EXTREMITIES: upper extremities are grossly normal. LOWER EXTREMITIES: No pitting edema. NEURO EXAM: Normal sensorium, cranial nerves II-XII grossly intact, normal speech, no gross weakness of arms, no gross weakness of legs. Gross sensation intact. Medical Decision & Procedures ER Provider Diagnostic Interpretation: Radiology results have been interpreted by the radiologist and reviewed by me. CHEST AND ABDOMEN 2 VIEWS HISTORY: Foreign body in vagina or rectum, also worsening cough COMPARISON: Chest CTA 05/30/2017. Abdomen and pelvis CT 06/05/2014. FINDINGS: The lungs are clear. The cardiomediastinal silhouette is within normal limits. There is no pneumoperitoneum or pneumatosis. The bowel gas pattern is unremarkable. No evidence for bowel obstruction. No pathologic calcifications. No radiopaque foreign bodies identified within the pelvis. Small radiopaque densities over the mid abdomen is likely on the patient's clothes. IMPRESSION: No acute cardiopulmonary process. No evidence for bowel obstruction. No radiopaque foreign bodies within the pelvis. Electronically signed by: Noé Mcmanus M.D. 06/08/2017 8:37 PM Dictated Date/Time: 06/08/2017 8:34 PM Laboratory Results 06/08/17 20:00 Red Blood Count 4.65, Mean Corpuscular Volume 92.0, Mean Corpuscular Hemoglobin 29.9, Mean Corpuscular Hemoglobin Concent 32.5, Mean Platelet Volume 10.0, Neutrophils (%) (Auto) 64.5, Lymphocytes (%) (Auto) 23.6, Monocytes (%) (Auto) 6.9, Eosinophils (%) (Auto) 4.2, Basophils (%) (Auto) 0.3, Neutrophils # (Auto) 7.10, Lymphocytes # (Auto) 2.60, Monocytes # (Auto) 0.76, Eosinophils # (Auto) 0.46, Basophils # (Auto) 0.03 06/08/17 20:00 Test 06/08/17 20:00 White Blood Count 11.01 K/uL (4.8-10.8) Red Blood Count 4.65 M/uL (4.2-5.4) Hemoglobin 13.9 g/dL (12.0-16.0) Hematocrit 42.8 % (37-47) Mean Corpuscular Volume 92.0 fL (80-100) Mean Corpuscular Hemoglobin 29.9 pg (25-34) Mean Corpuscular Hemoglobin Concent 32.5 g/dl (32-36) Platelet Count 301 K/uL (130-400) Mean Platelet Volume 10.0 fL (7.4-10.4) Neutrophils (%) (Auto) 64.5 % Lymphocytes (%) (Auto) 23.6 % Monocytes (%) (Auto) 6.9 % Eosinophils (%) (Auto) 4.2 % Basophils (%) (Auto) 0.3 % Neutrophils # (Auto) 7.10 K/uL (1.4-6.5) Lymphocytes # (Auto) 2.60 K/uL (1.2-3.4) Monocytes # (Auto) 0.76 K/uL (0.11-0.59) Eosinophils # (Auto) 0.46 K/uL (0-0.5) Basophils # (Auto) 0.03 K/uL (0-0.2) RDW Standard Deviation 48.6 fL (36.4-46.3) RDW Coefficient of Variation 14.4 % (11.5-14.5) Immature Granulocyte % (Auto) 0.5 % Immature Granulocyte # (Auto) 0.06 K/uL (0.00-0.02) D-Dimer 700 ug/L FEU (0-500) Urine Color YELLOW Urine Appearance CLEAR (CLEAR) Urine pH 5.0 (4.5-7.5) Urine Specific [place] 1.022 (1.000-1.030) Urine Protein NEG (NEG) Urine Glucose (UA) NEG (NEG) Urine Ketones NEG (NEG) Urine Occult Blood TRACE (NEG) Urine Nitrite NEG (NEG) Urine Bilirubin NEG (NEG) Urine Urobilinogen NEG (NEG) Urine Leukocyte Esterase NEG (NEG) Urine WBC (Auto) 1-5 /hpf (0-5) Urine RBC (Auto) 0-4 /hpf (0-4) Urine Hyaline Casts (Auto) 1-5 /lpf (0-5) Urine Epithelial Cells (Auto) 20-30 /lpf (0-5) Urine Bacteria (Auto) NEG (NEG) Anion Gap 9.0 mmol/L (3-11) Est Creatinine Clear Calc Drug Dose 82.3 ml/min Estimated GFR () 104.3 Estimated GFR (Non- 90.0 BUN/Creatinine Ratio 10.5 (10-20) Calcium Level 9.5 mg/dl (8.5-10.1) Total Bilirubin 0.5 mg/dl (0.2-1) Aspartate Amino Transf (AST/SGOT) 14 U/L (15-37) Alanine Aminotransferase (ALT/SGPT) 14 U/L (12-78) Alkaline Phosphatase 80 U/L (45-117) Total Protein 8.2 gm/dl (6.4-8.2) Albumin 4.2 gm/dl (3.4-5.0) Globulin 4.0 gm/dl (2.5-4.0) Albumin/Globulin Ratio 1.1 (0.9-2) Human Chorionic Gonadotropin, Qual NEG (NEG) Laboratory results per my review. Medications Administered Medications (Trade) Dose Ordered Sig/Dinah Route Start Time Stop Time Status Last Admin Dose Admin Sodium Chloride 1,000 ml @ 999 mls/hr Q1H1M STAT IV 06/08/17 19:41 06/08/17 20:41 DC 06/08/17 20:00 999 MLS/HR ECG Indication: other (cough) Rate (beats per minute): 61 Rhythm: sinus rhythm Findings: no acute ischemic change, no ectopy, other (Normal axis and normal intervals) ED Course 1915: The patient was evaluated in room C10. A complete history and physical exam was performed. 1940: Sodium Chloride 1000 ml @ 999 mls/hr IV 2111: I reevaluated the patient, and she did not want to have a pelvic exam. 2219: Upon reevaluation, the patient is feeling better. I discussed the findings and the treatment plan with the patient. She verbalizes agreement and understanding. She was discharged home. Medical Decision Differential diagnoses include: bronchitis, pneumonia, PE, and post-URI cough Patient is an here today with various complaints. Complains of persistent cough despite recent course of amoxicillin. Patient also complains of potential foreign bodies in her vagina or rectum. None noted on x-ray and patient offered additional exam and expiration which she declined. No evidence of acute pneumonia or effusion on chest x-ray. Doubt ACS. D-dimer sent given the patient is on control however I was noted she had a d-dimer done just last week at her initial exam and had a CT injure her chest which is negative. The d-dimer today is actually lower than the one checked last week. Did not feel patient's condition warranted repeat CT injure of the chest as she had no tachycardia was not hypoxic did not have any chest pain or shortness of breath. Patient was more concerned about the persistence of her cough. I reassured her this is likely a postinfectious cough that may last for a few weeks and the patient. It is nonproductive and she has not had gross hemoptysis has noticed only small occasional flecks of blood more likely from frequent and vigorous coughing. Patient otherwise well-appearing, no evidence of DKA, discussed with patient need for close control of her glucose, and potential complications given her diabetic status in the setting of a recent infection. Discussed symptoms to watch and return for, including is related to possible retained foreign body, she verbalized understanding was agreeable with plan. Medication Reconcilliation Current Medication List: was personally reviewed by me Blood Pressure Screening Patient's blood pressure: Normal blood pressure Impression Primary Impression: URI (upper respiratory infection) Additional Impression: Cough Scribe Attestation The scribe's documentation has been prepared under my direction and personally reviewed by me in its entirety. I confirm that the note above accurately reflects all work, treatment, procedures, and medical decision making performed by me. Departure Information Dispostion Home / Self-Care Referrals RV. Tovar MD (PCP) Forms HOME CARE DOCUMENTATION FORM, IMPORTANT VISIT INFORMATION, WORK / SCHOOL INSTRUCTIONS Patient Instructions My [facility] Additional Instructions Please drink plenty of water and he may use [id number] cough medications and cough drops as prescribed. Please continue to monitor your sugars. Given the possibility of a retained foreign body, these watch for any vaginal pain or discharge, rectal pain, bleeding from your vagina or your rectum, blood with the bowel movement, fevers or vomiting, as well as monitoring your cough and breathing. If you have any worsening symptoms or new concerns, please return the emergency room. Please be careful when engaging in intercourse when your partner has piercings. Consider asking your partner to remove their piercings first. Please note that having intercourse with a partner who has piercings may be painful or uncomfortable and can lead to injury. Problem Qualifiers Primary Impression: URI (upper respiratory infection) URI type: unspecified URI Qualified Codes: J06.9 - Acute upper respiratory infection, unspecified
[2017-06-08 20:39] LABS: URINE APPEARANCE CLEAR (CLEAR); URINE BILIRUBIN NEG (NEG); URINE COLOR YELLOW; URINE EPITHELIAL CELL AUTO 20-30 /lpf (0-5); URINE NITRITE NEG (NEG); URINE SPECIFIC GRAVITY 1.022 (1.000-1.030); UROBILINOGEN NEG (NEG); ZZUR CULT IF INDIC CLEAN CATCH NO
--- NOTE | 2017-06-08 20:39 | DIAGNOSTIC IMAGING REPORT ---
CHEST AND ABDOMEN 2 VIEWS HISTORY: Foreign body in vagina or rectum, also worsening cough COMPARISON: Chest CTA 05/30/2017. Abdomen and pelvis CT 06/05/2014. FINDINGS: The lungs are clear. The cardiomediastinal silhouette is within normal limits. There is no pneumoperitoneum or pneumatosis. The bowel gas pattern is unremarkable. No evidence for bowel obstruction. No pathologic calcifications. No radiopaque foreign bodies identified within the pelvis. Small radiopaque densities over the mid abdomen is likely on the patient's clothes. IMPRESSION: No acute cardiopulmonary process. No evidence for bowel obstruction. No radiopaque foreign bodies within the pelvis. Electronically signed by: Noé Mcmanus M.D. 06/08/2017 8:37 PM Dictated Date/Time: 06/08/2017 8:34 PM
[2017-06-08 20:40] LABS: BUN/CREATININE RATIO 10.5 (10-20); CALCIUM 9.5 mg/dl (8.5-10.1); CREATININE 0.87 mg/dl (0.60-1.20); POTASSIUM 3.6 mmol/L (3.5-5.1)
[2017-06-08 20:43] LABS: ALB/GLOB RATIO 1.1 (0.9-2)
[2017-06-08 20:50] LABS: MANUAL MICROSCOPIC REQUIRED? NO; REVIEW REQ? NO
[2017-06-08 20:56] LABS: PREG INTERNAL NEGATIVE QC NEG CLEAR BACKGROUND; PREG INTERNAL POSITIVE QC POS CONTROL LINE
[2017-06-08 22:25] VITALS: BP 113/63; PULSE 86; O2SAT 99
== END 2017-06-08 22:31 | disposition home or self-care (01) ==
LOC: C.EDB 18:38 → C.EDC 22:31
DX: J06.9 Acute upper respiratory infection, unspecified (principal); J45.909 Unspecified asthma, uncomplicated; N80.9 Endometriosis, unspecified; F17.200 Nicotine dependence, unspecified, uncomplicated; Z98.51 Tubal ligation status; Z98.890 Other specified postprocedural states; Z79.4 Long term (current) use of insulin; Z79.899 Other long term (current) drug therapy; Z91.09 Other allergy status, other than to drugs and biological substances; Z80.9 Family history of malignant neoplasm, unspecified; Z83.3 Family history of diabetes mellitus; Z83.79 Family history of other diseases of the digestive system; Z82.49 Family history of ischemic heart disease and other diseases of the circulatory system; Z84.1 Family history of disorders of kidney and ureter; Z82.3 Family history of stroke

== ENCOUNTER → 2017-07-10 | Outpatient (CLI) | payer OTHER ==
[~2017-07-10] MED LIST changes: +INSDGIPEN SC
[2017-07-10 12:25] LABS: ESTIMATED AVERAGE GLUCOSE 108 mg/dl; HA1C FLAG Normal (Normal)
== END | disposition home or self-care (01) ==
LOC: C.LAB1850 11:20
PROVIDERS: ATTEND Internal Medicine Endocrinology, Diabetes & Metabolism
DX: E11.9 Type 2 diabetes mellitus without complications (principal)

== ENCOUNTER 2017-09-13 20:09 | Emergency (ER) | payer OTHER ==
[~2017-09-13] VITALS: Ht 154.9 cm; Wt 63.1 kg
[2017-09-13 20:13] VITALS: TEMP 36.8; Ht 154.9 cm; Wt 63.1 kg
[2017-09-13] MEDS ORDERED: SODIUM CHLORIDE 0.9% 1000ML 1,000 ML IV STA (20:34)
[2017-09-13 20:50] VITALS: O2SAT 99
[2017-09-13 21:12] LABS: BASO % 0.4 %; BASO ABS # 0.03 K/uL (0-0.2); EOS % 7.1 %; EOS ABS # 0.53 K/uL (0-0.5); HEMATOCRIT 40.5 % (37-47); HEMOGLOBIN 13.9 g/dL (12.0-16.0); IG# 0.02 K/uL (0.00-0.02); LYMPH % 35.3 %; LYMPH ABS # 2.62 K/uL (1.2-3.4); MEAN CELL VOLUME 90.2 fL (80-100); MEAN CORPUSCULAR HGB CONC 34.3 g/dl (32-36); MEAN PLATELET VOLUME 10.2 fL (7.4-10.4); MONO % 9.3 %; MONO ABS # 0.69 K/uL (0.11-0.59); NEUT % 47.6 %; NEUT ABS # 3.54 K/uL (1.4-6.5); PLATELET COUNT 227 K/uL (130-400); RED CELL DISTRIBUTION WIDTH CV 13.4 % (11.5-14.5); RED CELL DISTRIBUTION WIDTH SD 44.1 fL (36.4-46.3); WHITE BLOOD COUNT 7.43 K/uL (4.8-10.8)
[2017-09-13 21:19] LABS: ALBUMIN 4.2 gm/dl (3.4-5.0); ALT/SGPT 15 U/L (12-78); BLOOD UREA NITROGEN 13 mg/dl (7-18); CALCIUM 8.9 mg/dl (8.5-10.1); CARBON DIOXIDE 27 mmol/L (21-32); CREATININE 0.91 mg/dl (0.60-1.20); GLUCOSE 113 mg/dl (70-99); POTASSIUM 3.4 mmol/L (3.5-5.1); SODIUM 138 mmol/L (136-145)
[2017-09-13 21:24] LABS: ALKALINE PHOSPHATASE 83 U/L (45-117); AST/SGOT 12 U/L (15-37)
[2017-09-13] MEDS ORDERED: IBUPROFEN 600 MG TAB PO STA (21:24)
[2017-09-13] MEDS ORDERED: ACETAMINOPHEN 325 MG TAB PO STA (21:24)
[2017-09-13 21:34] LABS: INFLUENZA B ANTIGEN Neg for Influ B (NEG)
[2017-09-13] MEDS ORDERED: GLC/500 PO (21:41)
[2017-09-13] MEDS ORDERED: CEFTRIAXONE SOD INJ 1 GM ADDVIAL IV STA (22:12)
[2017-09-13] MEDS ORDERED: AZITHROMYCIN 250 MG TAB PO STA (22:12)
--- NOTE | 2017-09-13 22:43 | EMERGENCY ROOM VISIT NOTE ---
History First contact with patient: 20:15 Chief Complaint: DIARRHEA Stated Complaint: SORE EARS - THROAT - HEADACHE - DIARRHEA Nursing Triage Summary: Patient reports diarrhea, headache, nausea, and just general ill feeling the last couple days. Patient reports symptoms got so bad at work today she had to leave. History of Present Illness The patient is a 27 year old female who presents to the Emergency Room via private vehicle with complaints of "sore ears, headache, diarrhea, low appetite , cough, congestion, dysuria". The patient states that about one week ago she developed diarrhea and has been progressing. She is now wearing adult diapers because if she coughs or sneezes too hard she will be fecally incontinent. She states that she has a decreased appetite. She has a headache. She has dysuria. She notes she had unprotected intercourse with 2 individuals other than her with friend and and is concerned about sexual transmitted infection. She denies any recent antibiotic use. She notes some abdominal pain and also chest pain which she believes is from her anxiety. She notes her cough has been productive with a few little blood tinges in it. She notes no shortness of breath or heart problems. Review of Systems A complete 10-point Review of Systems was discussed with the patient, with pertinent positives and negatives listed in the History of Present Illness. All remaining Review of Systems questions can be considered negative unless otherwise specified. Past Medical/Surgical History Medical Problems: (1) Asthma (2) Endometriosis (3) History of - tubal ligation (4) Left ovary removal (5) Pneumonia Surgical Problems: (1) H/O section (2) S/P laparoscopy Family History Cancer Diabetes mellitus Gallbladder disease Heart disease Hypertension Kidney disease Kidney stones Lung disease Seizures Social History Smoking Status: Current Every Day Smoker Alcohol Use: none Drug Use: none Marital Status: other Housing Status: lives with family Occupation Status: unemployed Current/Historical Medications Scheduled Buspirone HCl (Buspirone HCl), 20 MG PO QAM Cephalexin Monohydrate (Keflex), 500 MG PO BID Cholecalciferol (Vitamin D3), 2,000 UNITS PO DAILY Escitalopram Oxalate (Escitalopram Oxalate), 20 MG PO DAILY Gabapentin (Gabapentin), 100 MG PO QAM Metformin Hcl (Glucophage), 500 MG PO BID Quetiapine Fumarate (Quetiapine Fumarate), 25 MG PO HS Scheduled PRN Albuterol Sulf (Proventil 0.083% 2.5MG/3ML), 1 UNIT NEB Q6H PRN for SOB/Wheezing Hydroxyzine Pamoate (Vistaril), 50 MG PO TID PRN for Anxiety Physical Exam Vital Signs Date Time Temp Pulse Resp B/P (MAP) Pulse Ox O2 Delivery O2 Flow Rate FiO2 09/13/17 21:37 54 16 114/59 98 Room Air 09/13/17 20:50 99 Room Air 09/13/17 20:13 36.8 81 18 115/72 96 Room Air Physical Exam VITAL SIGNS - Vital signs and nursing notes were reviewed. Stable. Non- tachycardic and is saturating well on room air at 96%. GENERAL -27-year-old female appearing her stated age who is in no acute distress. Communicates well with provider and answers questions appropriately. SKIN - Without rashes. No petechial rashes. HEAD - NC/AT. EYES - Sclera anicteric. EARS - No deformities of external structures noted on gross examination bilaterally. NOSE - Midline and without cyanosis. No epistaxis or purulent drainage noted. MOUTH/OROPHARYNX - Without perioral cyanosis. NECK - full range of motion without evidence of meningismus. LUNGS - Chest wall symmetric without accessory muscle use, intercostals retractions, or central cyanosis. Normal vesicular breath sounds CTA B/L. No wheezes, rales, or rhonchi appreciated. CARDIAC - RRR with S1/S2. No murmur, rubs, or gallops appreciated. ABDOMEN - Abdominal contour normal without pulsations or visible masses. BS normoactive all four quadrants. No tenderness, palpable masses, hepatosplenomegaly, or ascites noted. Medical Decision & Procedures ER Provider Diagnostic Interpretation: CHEST ONE VIEW PORTABLE CLINICAL HISTORY: Chest pain dyspnea COMPARISON STUDY: 06/08/2017 FINDINGS: The bones soft tissues and hemidiaphragms are normal. The cardiomediastinal silhouette is normal. The lungs are clear. The pulmonary vasculature is normal. IMPRESSION: Negative chest. The above report was generated using voice recognition software. It may contain grammatical, syntax or spelling errors. Electronically signed by: Newton Conte M.D. 09/13/2017 10:40 PM Dictated Date/Time: 09/13/2017 10:39 PM Laboratory Results 09/13/17 20:50 Red Blood Count 4.49, Mean Corpuscular Volume 90.2, Mean Corpuscular Hemoglobin 31.0, Mean Corpuscular Hemoglobin Concent 34.3, Mean Platelet Volume 10.2, Neutrophils (%) (Auto) 47.6, Lymphocytes (%) (Auto) 35.3, Monocytes (%) (Auto) 9.3, Eosinophils (%) (Auto) 7.1, Basophils (%) (Auto) 0.4, Neutrophils # (Auto) 3.54, Lymphocytes # (Auto) 2.62, Monocytes # (Auto) 0.69, Eosinophils # (Auto) 0.53, Basophils # (Auto) 0.03 09/13/17 20:50 Test 09/13/17 20:40 09/13/17 20:45 09/13/17 20:50 Urine Color DK YELLOW Urine Appearance CLOUDY (CLEAR) Urine pH 5.0 (4.5-7.5) Urine Specific [place] 1.025 (1.000-1.030) Urine Protein NEG (NEG) Urine Glucose (UA) NEG (NEG) Urine Ketones NEG (NEG) Urine Occult Blood TRACE (NEG) Urine Nitrite NEG (NEG) Urine Bilirubin NEG (NEG) Urine Urobilinogen NEG (NEG) Urine Leukocyte Esterase MODERATE (NEG) Urine WBC (Auto) >30 /hpf (0-5) Urine RBC (Auto) 5-10 /hpf (0-4) Urine Hyaline Casts (Auto) 1-5 /lpf (0-5) Urine Epithelial Cells (Auto) 10-20 /lpf (0-5) Urine Bacteria (Auto) NEG (NEG) Urine Mucus PRESENT (NONE PRSENT) Urine Test NEG (NEG) Influenza Type A Antigen Neg for Influ A (NEG) Influenza Type B Antigen Neg for Influ B (NEG) White Blood Count 7.43 K/uL (4.8-10.8) Red Blood Count 4.49 M/uL (4.2-5.4) Hemoglobin 13.9 g/dL (12.0-16.0) Hematocrit 40.5 % (37-47) Mean Corpuscular Volume 90.2 fL (80-100) Mean Corpuscular Hemoglobin 31.0 pg (25-34) Mean Corpuscular Hemoglobin Concent 34.3 g/dl (32-36) Platelet Count 227 K/uL (130-400) Mean Platelet Volume 10.2 fL (7.4-10.4) Neutrophils (%) (Auto) 47.6 % Lymphocytes (%) (Auto) 35.3 % Monocytes (%) (Auto) 9.3 % Eosinophils (%) (Auto) 7.1 % Basophils (%) (Auto) 0.4 % Neutrophils # (Auto) 3.54 K/uL (1.4-6.5) Lymphocytes # (Auto) 2.62 K/uL (1.2-3.4) Monocytes # (Auto) 0.69 K/uL (0.11-0.59) Eosinophils # (Auto) 0.53 K/uL (0-0.5) Basophils # (Auto) 0.03 K/uL (0-0.2) RDW Standard Deviation 44.1 fL (36.4-46.3) RDW Coefficient of Variation 13.4 % (11.5-14.5) Immature Granulocyte % (Auto) 0.3 % Immature Granulocyte # (Auto) 0.02 K/uL (0.00-0.02) Anion Gap 7.0 mmol/L (3-11) Est Creatinine Clear Calc Drug Dose 77.6 ml/min Estimated GFR () 98.8 Estimated GFR (Non- 85.3 BUN/Creatinine Ratio 13.9 (10-20) Calcium Level 8.9 mg/dl (8.5-10.1) Total Bilirubin 0.3 mg/dl (0.2-1) Aspartate Amino Transf (AST/SGOT) 12 U/L (15-37) Alanine Aminotransferase (ALT/SGPT) 15 U/L (12-78) Alkaline Phosphatase 83 U/L (45-117) Troponin I < 0.015 ng/ml (0-0.045) Total Protein 8.0 gm/dl (6.4-8.2) Albumin 4.2 gm/dl (3.4-5.0) Globulin 3.8 gm/dl (2.5-4.0) Albumin/Globulin Ratio 1.1 (0.9-2) Medications Administered Medications (Trade) Dose Ordered Sig/Dinah Route Start Time Stop Time Status Last Admin Dose Admin Sodium Chloride 1,000 ml @ 999 mls/hr Q1H1M STAT IV 09/13/17 20:34 09/13/17 21:34 DC 09/13/17 20:50 999 MLS/HR Acetaminophen (Tylenol Tab) 650 mg NOW STAT PO 09/13/17 21:24 09/13/17 21:25 DC 09/13/17 21:33 650 MG Ibuprofen (Motrin Tab) 600 mg NOW STAT PO 09/13/17 21:24 09/13/17 21:25 DC 09/13/17 21:32 600 MG Ceftriaxone Sodium (Rocephin Inj) 1 gm NOW STAT IV 09/13/17 22:12 09/13/17 22:13 DC 09/13/17 22:16 1 GM Azithromycin (Zithromax Tab) 1,000 mg NOW STAT PO 09/13/17 22:12 09/13/17 22:13 DC 09/13/17 22:16 1,000 MG Medical Decision Patient was seen and evaluated as above. She presents to us today with a multitude of symptoms. She is nontoxic on exam. No evidence to suggest an acute emergent process. IV access was initiated, and the above workup was performed. At that EKG reveals normal sinus rhythm, rate of 61 bpm. Nonspecific T wave abnormality. This was compared to previous EKG of 2016. No acute change noted. CBC reveals no leukocytosis or anemia. Chemistry panel reveals no evidence of kidney or liver failure. Potassium 3.4. Troponin negative. Urine does reveal what I believe to be a UTI. Urine test negative. She notes that she did have sexual intercourse unprotected with 2 other individuals and was concerned about chlamydia secondary to dysuria that she is experiencing today. The unprotected event was on [place]. She was offered pelvic exam and notes that she would just like to be treated. She was given Rocephin and azithromycin. For the urine I will treat this with Keflex. Review was had of her previous urinalysis and it appears that there is mostly sensitive results however there has been resistance to some penicillins. It appears the cephalosporins are okay. In the event that there is also UTI the Rocephin that she was given here will also treat this. She was also given an inhaler to help break up the congestion in the chest. Given her constitutional symptoms I believe it very unlikely that she is experiencing a significant event such as an AL or PE. Her vital signs look excellent. Negative for influenza. She did give a stool sample with culture pending. At this time she appears stable for outpatient management. She was educated upon management, educated upon worrisome symptoms in which to return, had questions and provided discharge, and was discharged home in good condition. Impression Primary Impression: Cough Additional Impressions: Diarrhea UTI (urinary tract infection) Headache Dysuria Hypokalemia Departure Information Dispostion Home / Self-Care Condition GOOD Prescriptions Cephalexin Monohydrate (Keflex) 500 Mg Cap 500 MG PO BID for 7 Days, #14 CAP Prov: Miguel Sanderson PA-C 09/13/17 Referrals RV. Tovar MD (PCP) Patient Instructions My [facility] Additional Instructions You have been treated in the Emergency Department for a Urinary Tract Infection (UTI). You have been prescribed keflex to be taken every 12 hours. This is an antibiotic. All antibiotics have the potential to cause diarrhea. Stop this medication and contact a medical provider if you were to develop any significant adverse side effects including: wheezing, shortness of breath, passing out, vomiting, or a diffuse rash. Always take antibiotics as directed and COMPLETE the ENTIRE course regardless of the improvement of your symptoms. Ventolin HFA inhaler 1-2 puffs every 6 hours as needed for cough. For pain control, you can use the following [id number] medicines (if >12 yo): - Regular strength (325mg/tab) Tylenol (acetaminophen) 2 tabs every 4-6 hours as needed. Do not exceed 12 tablets in a 24 hour period. Avoid taking more than 3 grams (3000 mg) of Tylenol per day. This includes any other sources of acetaminophen you may take on a regular basis. - Regular strength (200 mg/tab) Advil (ibuprofen) 1-2 tabs every 4-6 hours as needed. Do not exceed a dose of 3200 mg per day. Please follow-up with her family doctor. He will be notified if the urinalysis grows out a bacteria not covered by the antibiotic. If you do not hear back about your stool culture results please call back here within one week at [phone] or follow-up with her family doctor. Return to the emergency department if your symptoms worsen despite treatment course outlined above. Drink plenty of water and stay well hydrated. As with any trip to the Emergency Department, you should follow-up with your Primary Care Provider from today's visit. Return to the emergency department if your symptoms persist despite treatment plan outlined above or if the following symptoms occur: increased fevers, chills , low back pain, nausea/vomiting, or blood in your urine. Problem Qualifiers
[2017-09-13] MEDS ORDERED: ALBUTEROL HFA 8 GM INHALER INH STA (23:08)
[2017-09-13] MEDS ORDERED: CEPH500C PO (23:12)
[2017-09-13 23:27] VITALS: BP 117/71; PULSE 60; O2SAT 97
[2018-03-13] MEDS ORDERED: VALA500T60 PO (11:56)
[2018-03-13] MEDS ORDERED: CHLO1TAB19 PO (11:56)
[2018-03-13] MEDS ORDERED: VNTHFA/IN INH (11:56)
[2018-03-16] MEDS ORDERED: AMOX500T3 PO (15:50)
== END 2017-09-13 23:24 | disposition home or self-care (01) ==
LOC: C.EDB 20:10 → C.EDC 23:24
DX: R05 Cough (principal); R19.7 Diarrhea, unspecified; N39.0 Urinary tract infection, site not specified; E87.6 Hypokalemia; R51 Headache; F17.210 Nicotine dependence, cigarettes, uncomplicated; Z79.899 Other long term (current) drug therapy

== ENCOUNTER 2017-09-24 14:03 | Emergency (ER) | payer OTHER ==
[~2017-09-24] VITALS: Ht 154.9 cm; Wt 61.4 kg
[~2017-09-24 14:03] MED LIST changes: -CHOL20007 PO; +GLC/500 PO; -INSDGIPEN SC; -LEUP11.23 INJ; -LXP10 PO; -NORE5TAB5 PO; -PRAZ2CAP2 PO; -VST25HP PO
[2017-09-24 14:16] VITALS: TEMP 36.6; Ht 154.9 cm; Wt 61.4 kg
[2017-09-24] MEDS ORDERED: SODIUM CHLORIDE 0.9% 500ML 500 ML IV STA (15:34)
[2017-09-24] MEDS ORDERED: ONDANSETRON INJ 2 MG/ML 2 ML VIAL IV STA (15:34)
--- NOTE | 2017-09-24 15:42 | EMERGENCY ROOM VISIT NOTE ---
History Report prepared by Debo: Jolanta Garcia Under the Supervision of: Dr. Ana Dial M.D. First contact with patient: 15:27 Chief Complaint: VOMITING Stated Complaint: VOMITING,CHILLS,STOMACH PAIN History of Present Illness The patient is a 27 year old female who presents to the Emergency Room with complaints of worsening generalized illness beginning two weeks ago. The patient reports diarrhea, vomiting, decreased appetite, a cough and burning with urinating. The patient was in the ED on Saturday, 4 days ago, for similar symptoms and was put on Keflex. The patient was tested for Chlamydia when she was here 4 days ago. She states she was concerned that she may have an STI because she had unprotected sex. She denies any vaginal discharge. The patient reports she threw up 5 times yesterday. She notes she woke up this morning with abdominal pain which was a new symptoms for her. She notes taking Pepto Bismol with relief. The patient reports her daughter has strep throat. Source of History: patient Onset: two weeks ago Position: other (generalized) Quality: other (illness) Timing: worsening Modifying Factors (Relieving): other (pepto ) Associated Symptoms: + cough, + vomiting, + abdominal pain, + diarrhea, + urinary symptoms Review of Systems See HPI for pertinent positives & negatives. A total of 10 systems reviewed and were otherwise negative. Past Medical & Surgical Medical Problems: (1) Asthma (2) Endometriosis (3) History of - tubal ligation (4) Left ovary removal (5) Pneumonia Surgical Problems: (1) H/O section (2) S/P laparoscopy Family History Cancer Diabetes mellitus Gallbladder disease Heart disease Hypertension Kidney disease Kidney stones Lung disease Seizures Social History Smoking Status: Current Every Day Smoker Alcohol Use: none Drug Use: none Marital Status: other Housing Status: lives with family Occupation Status: unemployed Current/Historical Medications Scheduled Buspirone HCl (Buspirone HCl), 20 MG PO QAM Cephalexin Monohydrate (Keflex), 500 MG PO BID Cholecalciferol (Vitamin D3), 2,000 INTER.UNIT PO DAILY Escitalopram Oxalate (Escitalopram Oxalate), 20 MG PO QAM Famotidine (Pepcid), 20 MG PO BID Gabapentin (Gabapentin), 100 MG PO QAM Metformin Hcl Er (Glucophage Er), 1,000 MG PO BID Quetiapine Fumarate (Quetiapine Fumarate), 25 MG PO HS Scheduled PRN Albuterol Sulf (Proventil 0.083% 2.5MG/3ML), 1 VIAL NEB Q6H PRN for Wheezing Hydroxyzine Pamoate (Vistaril), 50 MG PO TID PRN for Anxiety Allergies Coded Allergies: Cat Dander (Verified Allergy, Intermediate, HIVES, CONGESTION, 12/04/16) Dog Dander (Verified Allergy, Intermediate, HIVES, CONGESTION, 12/04/16) Grass (Verified Allergy, Intermediate, HIVES,CONGESTION, 12/04/16) Physical Exam Vital Signs Date Time Temp Pulse Resp B/P (MAP) Pulse Ox O2 Delivery O2 Flow Rate FiO2 09/24/17 18:41 105/72 09/24/17 18:39 73 16 105/72 98 Room Air 09/24/17 16:28 70 16 97 Room Air 09/24/17 16:10 68 16 102/59 95 Room Air 09/24/17 14:16 36.6 90 18 105/67 98 Room Air Physical Exam Vital signs reviewed. General: Well-appearing female, in no significant distress. HEENT: No scleral icterus, PERRLA, neck supple. Atraumatic. Cardiovascular: Regular rate and rhythm, no extra sounds. Pulmonary: Clear to auscultation bilaterally, normal work of breathing. Abdomen: Soft, nontender, nondistended, positive bowel sounds. Musculoskeletal: Atraumatic, no peripheral edema. Neurologic: Patient awake alert and oriented x 3 Skin: Warm, dry, no rash Medical Decision & Procedures ER Provider Diagnostic Interpretation: Radiology results as stated below per my review and radiologist interpretation: PA CHEST WITH ABDOMINAL SERIES FINDINGS: A PA chest radiograph is compared to study dated 09/13/2017. The cardiomediastinal silhouette is unremarkable. The lungs and pleural spaces are clear. No pneumothorax is seen. Nipple shadows project over both lung bases. The bony thorax is grossly intact. Supine and erect abdominal radiographs are compared to study dated 06/08/2017. There is a nonobstructed abdominal bowel gas pattern. No evidence of intraperitoneal free air is seen. There are no abnormal abdominal calcifications. The lumbosacral spine and bony pelvis appear intact. IMPRESSION: 1. No active disease in the chest. 2. Nonobstructed abdominal bowel gas pattern. Electronically signed by: Sony Bledsoe M.D. BILIARY ULTRASOUND FINDINGS: The pancreas appears sonographically normal. The liver appears sonographically normal. There is no ductal dilatation. The common bile duct measures 4 mm. The gallbladder contains an 8 mm shadowing calculus. There is no gallbladder wall thickening. There is minimal fullness the right renal collecting system. There is equivocal punctate upper pole right renal calculus. IMPRESSION: 1. Cholelithiasis. No evidence of ductal dilatation 2. Equivocal tiny right renal calculus. Minimal fullness of the right renal collecting system . Electronically signed by: Jhon Moraes M.D. Laboratory Results 09/24/17 16:00 Red Blood Count 4.43, Mean Corpuscular Volume 89.6, Mean Corpuscular Hemoglobin 31.2, Mean Corpuscular Hemoglobin Concent 34.8, Mean Platelet Volume 10.5, Neutrophils (%) (Auto) 68.4, Lymphocytes (%) (Auto) 19.9, Monocytes (%) (Auto) 8.7, Eosinophils (%) (Auto) 2.2, Basophils (%) (Auto) 0.3, Neutrophils # (Auto) 5.00, Lymphocytes # (Auto) 1.46, Monocytes # (Auto) 0.64, Eosinophils # (Auto) 0.16, Basophils # (Auto) 0.02 09/24/17 16:00 Test 09/24/17 16:00 09/24/17 16:01 White Blood Count 7.32 K/uL (4.8-10.8) Red Blood Count 4.43 M/uL (4.2-5.4) Hemoglobin 13.8 g/dL (12.0-16.0) Hematocrit 39.7 % (37-47) Mean Corpuscular Volume 89.6 fL (80-100) Mean Corpuscular Hemoglobin 31.2 pg (25-34) Mean Corpuscular Hemoglobin Concent 34.8 g/dl (32-36) Platelet Count 199 K/uL (130-400) Mean Platelet Volume 10.5 fL (7.4-10.4) Neutrophils (%) (Auto) 68.4 % Lymphocytes (%) (Auto) 19.9 % Monocytes (%) (Auto) 8.7 % Eosinophils (%) (Auto) 2.2 % Basophils (%) (Auto) 0.3 % Neutrophils # (Auto) 5.00 K/uL (1.4-6.5) Lymphocytes # (Auto) 1.46 K/uL (1.2-3.4) Monocytes # (Auto) 0.64 K/uL (0.11-0.59) Eosinophils # (Auto) 0.16 K/uL (0-0.5) Basophils # (Auto) 0.02 K/uL (0-0.2) RDW Standard Deviation 45.3 fL (36.4-46.3) RDW Coefficient of Variation 13.6 % (11.5-14.5) Immature Granulocyte % (Auto) 0.5 % Immature Granulocyte # (Auto) 0.04 K/uL (0.00-0.02) Anion Gap 7.0 mmol/L (3-11) Est Creatinine Clear Calc Drug Dose 85.0 ml/min Estimated GFR () 112.1 Estimated GFR (Non- 96.7 BUN/Creatinine Ratio 17.1 (10-20) Calcium Level 9.2 mg/dl (8.5-10.1) Total Bilirubin 0.6 mg/dl (0.2-1) Direct Bilirubin < 0.1 mg/dl (0-0.2) Aspartate Amino Transf (AST/SGOT) 12 U/L (15-37) Alanine Aminotransferase (ALT/SGPT) 15 U/L (12-78) Alkaline Phosphatase 84 U/L (45-117) Total Protein 7.7 gm/dl (6.4-8.2) Albumin 4.0 gm/dl (3.4-5.0) Lipase 145 U/L (73-393) Urine Color YELLOW Urine Appearance CLEAR (CLEAR) Urine pH 5.0 (4.5-7.5) Urine Specific [place] 1.015 (1.000-1.030) Urine Protein NEG (NEG) Urine Glucose (UA) NEG (NEG) Urine Ketones NEG (NEG) Urine Occult Blood NEG (NEG) Urine Nitrite NEG (NEG) Urine Bilirubin NEG (NEG) Urine Urobilinogen NEG (NEG) Urine Leukocyte Esterase NEG (NEG) Urine Test NEG (NEG) Laboratory results per my review. Medications Administered Medications (Trade) Dose Ordered Sig/Dinah Route Start Time Stop Time Status Last Admin Dose Admin Sodium Chloride 500 ml @ 999 mls/hr Q31M STAT IV 09/24/17 15:34 09/24/17 16:04 DC 09/24/17 16:09 999 MLS/HR Ondansetron HCl (Zofran Inj) 4 mg NOW STAT IV 09/24/17 15:34 09/24/17 15:38 DC 09/24/17 16:09 4 MG Famotidine (Pepcid Tab) 20 mg NOW ONCE PO 09/24/17 17:30 09/24/17 17:31 DC 09/24/17 17:49 20 MG Potassium Chloride (Klor-Con M10) 20 meq NOW STAT PO 09/24/17 17:17 09/24/17 17:19 DC 09/24/17 17:49 20 MEQ ED Course 1530: Past medical records reviewed. The patient was evaluated in room B8. A complete history and physical examination was performed. 1534: Ordered Zofran Inj 4 mg IV, Sodium Chloride 500 ml @ 999 mls/hr IV 1717: Ordered Potassium Chloride 20 meq PO. 1730: Ordered Pepcid Tab 20 mg PO. 1805: Updated the patient on her test results. She is ready to go home. 1807: Upon reevaluation, the patient appeared to have improvement of her symptoms. I discussed findings with her. She verbalized agreement of the treatment plan. The patient was discharged home. Medical Decision Differential diagnosis: Etiologies such as gastroenteritis, food borne illness, infections, appendicitis , diverticulitis, inflammatory bowel disease, obstruction, GI bleed, biliary pathology, as well as others were entertained. This patient was evaluated and appeared to be in no significant distress. IV access was obtained and laboratory work was drawn. Patient was hydrated with normal saline solution. Patient was given IV Zofran and Pepcid orally. Ultrasound and upper quadrant is negative for acute cholecystitis or cholelithiasis is evident. Patient's laboratory work is fairly unrevealing. The patient was advised of the findings. She was advised to use Pepcid 20 mg twice a day as needed. Patient was discharged and asked to follow-up with her PCP. She will return to the ER for worsening of symptoms or any medical concerns. Medication Reconcilliation Current Medication List: was personally reviewed by me Blood Pressure Screening Patient's blood pressure: Normal blood pressure Impression Primary Impression: Gastritis Scribe Attestation The scribe's documentation has been prepared under my direction and personally reviewed by me in its entirety. I confirm that the note above accurately reflects all work, treatment, procedures, and medical decision making performed by me. Departure Information Dispostion Home / Self-Care Prescriptions Famotidine (PEPCID) 20 Mg Tab 20 MG PO BID, #60 TAB Prov: Ana Dial M.D. 09/24/17 Referrals RV. Tovar MD (PCP) Forms HOME CARE DOCUMENTATION FORM, IMPORTANT VISIT INFORMATION Patient Instructions My [facility] Additional Instructions Diagnosis: Vomiting Pepcid 20 mg twice daily for gastritis. Avoid alcohol, Aleve, ibuprofen and aspirin. Drink plenty of clear fluids. Avoid greasy and spicy foods. Avoid dairy products until you're diarrhea resolves. Follow-up with her primary care physician this week for reevaluation. Return to the ER for worsening of symptoms or any medical concerns.
[2017-09-24] MEDS ORDERED: METF500T5 PO (16:00)
[2017-09-24] MEDS ORDERED: CEPH500C2 PO (16:00)
[2017-09-24 16:25] LABS: BASO % 0.3 %; BASO ABS # 0.02 K/uL (0-0.2); EOS % 2.2 %; EOS ABS # 0.16 K/uL (0-0.5); HEMATOCRIT 39.7 % (37-47); HEMOGLOBIN 13.8 g/dL (12.0-16.0); IG# 0.04 K/uL (0.00-0.02); LYMPH % 19.9 %; LYMPH ABS # 1.46 K/uL (1.2-3.4); MEAN CELL VOLUME 89.6 fL (80-100); MEAN CORPUSCULAR HEMOGLOBIN 31.2 pg (25-34); MEAN CORPUSCULAR HGB CONC 34.8 g/dl (32-36); MEAN PLATELET VOLUME 10.5 fL (7.4-10.4); MONO % 8.7 %; MONO ABS # 0.64 K/uL (0.11-0.59); NEUT % 68.4 %; PLATELET COUNT 199 K/uL (130-400); RED CELL DISTRIBUTION WIDTH CV 13.6 % (11.5-14.5); RED CELL DISTRIBUTION WIDTH SD 45.3 fL (36.4-46.3); WHITE BLOOD COUNT 7.32 K/uL (4.8-10.8)
--- NOTE | 2017-09-24 16:42 | DIAGNOSTIC IMAGING REPORT ---
PA CHEST WITH ABDOMINAL SERIES CLINICAL HISTORY: Vomiting. Generalized abdominal pain. FINDINGS: A PA chest radiograph is compared to study dated 09/13/2017. The cardiomediastinal silhouette is unremarkable. The lungs and pleural spaces are clear. No pneumothorax is seen. Nipple shadows project over both lung bases. The bony thorax is grossly intact. Supine and erect abdominal radiographs are compared to study dated 06/08/2017. There is a nonobstructed abdominal bowel gas pattern. No evidence of intraperitoneal free air is seen. There are no abnormal abdominal calcifications. The lumbosacral spine and bony pelvis appear intact. IMPRESSION: 1. No active disease in the chest. 2. Nonobstructed abdominal bowel gas pattern. Electronically signed by: Sony Bledsoe M.D. 09/24/2017 4:41 PM Dictated Date/Time: 09/24/2017 4:40 PM
--- NOTE | 2017-09-24 17:05 | DIAGNOSTIC IMAGING REPORT ---
BILIARY ULTRASOUND CLINICAL HISTORY: RUQ pain COMPARISON STUDY: No previous studies for comparison. FINDINGS: The pancreas appears sonographically normal. The liver appears sonographically normal. There is no ductal dilatation. The common bile duct measures 4 mm. The gallbladder contains an 8 mm shadowing calculus. There is no gallbladder wall thickening. There is minimal fullness the right renal collecting system. There is equivocal punctate upper pole right renal calculus. IMPRESSION: 1. Cholelithiasis. No evidence of ductal dilatation 2. Equivocal tiny right renal calculus. Minimal fullness of the right renal collecting system . Electronically signed by: Jhon Moraes M.D. 09/24/2017 5:04 PM Dictated Date/Time: 09/24/2017 5:02 PM
[2017-09-24 17:09] LABS: ALKALINE PHOSPHATASE 84 U/L (45-117); ALT/SGPT 15 U/L (12-78); AST/SGOT 12 U/L (15-37); BLOOD UREA NITROGEN 14 mg/dl (7-18); CALCIUM 9.2 mg/dl (8.5-10.1); CARBON DIOXIDE 25 mmol/L (21-32); CREATININE 0.82 mg/dl (0.60-1.20); GLUCOSE 85 mg/dl (70-99); LIPASE 145 U/L (73-393); POTASSIUM 3.3 mmol/L (3.5-5.1); SODIUM 138 mmol/L (136-145); TOTAL PROTEIN 7.7 gm/dl (6.4-8.2)
[2017-09-24] MEDS ORDERED: POTASSIUM CHLORIDE 10 MEQ TABCR PO STA (17:17)
[2017-09-24] MEDS ORDERED: FAMOTIDINE 20 MG TAB PO ONE (17:30)
[2017-09-24] MEDS ORDERED: FAMO20TA9 PO (17:46)
[2017-09-24 18:39] VITALS: PULSE 73; O2SAT 98
[2017-09-24 18:41] VITALS: BP 105/72
[2017-09-24] MEDS ORDERED: SRQ25 PO (21:41)
[2017-09-24] MEDS ORDERED: ALBINS/ NEB (21:41)
[2017-09-24] MEDS ORDERED: BSP/10 PO (21:41)
[2017-09-24] MEDS ORDERED: HYDR50CA2 PO (21:41)
[2017-09-24] MEDS ORDERED: CHOL2000 PO (21:41)
[2017-09-24] MEDS ORDERED: NRN100 PO (21:41)
[2017-09-24] MEDS ORDERED: LXP/20 PO (21:41)
== END 2017-09-24 18:42 | disposition home or self-care (01) ==
LOC: C.EDB 14:05
DX: K29.70 Gastritis, unspecified, without bleeding (principal); J45.909 Unspecified asthma, uncomplicated; F17.200 Nicotine dependence, unspecified, uncomplicated; Z83.3 Family history of diabetes mellitus; Z82.49 Family history of ischemic heart disease and other diseases of the circulatory system; Z84.1 Family history of disorders of kidney and ureter; Z83.79 Family history of other diseases of the digestive system; Z83.6 Family history of other diseases of the respiratory system; Z82.0 Family history of epilepsy and other diseases of the nervous system

== ENCOUNTER → 2017-09-26 | Outpatient (CLI) | payer OTHER ==
[~2017-09-26] MED LIST changes: +ALBINS/ NEB; +BSP/10 PO; +CEPH500C2 PO; +CHOL2000 PO; +FAMO20TA9 PO; -GLC/500 PO; +HYDR50CA2 PO; +LXP/20 PO; +METF500T5 PO; +NRN100 PO; +SRQ25 PO
[2017-09-26 17:36] LABS: BASO % 0.3 %; BASO ABS # 0.02 K/uL (0-0.2); EOS % 5.5 %; EOS ABS # 0.42 K/uL (0-0.5); HEMATOCRIT 40.2 % (37-47); HEMOGLOBIN 13.6 g/dL (12.0-16.0); IG# 0.02 K/uL (0.00-0.02); LYMPH % 30.8 %; LYMPH ABS # 2.36 K/uL (1.2-3.4); MEAN CELL VOLUME 90.1 fL (80-100); MEAN CORPUSCULAR HEMOGLOBIN 30.5 pg (25-34); MEAN CORPUSCULAR HGB CONC 33.8 g/dl (32-36); MEAN PLATELET VOLUME 10.6 fL (7.4-10.4); MONO % 9.5 %; MONO ABS # 0.73 K/uL (0.11-0.59); NEUT % 53.6 %; PLATELET COUNT 223 K/uL (130-400); RED CELL DISTRIBUTION WIDTH CV 13.6 % (11.5-14.5); RED CELL DISTRIBUTION WIDTH SD 45.1 fL (36.4-46.3); WHITE BLOOD COUNT 7.65 K/uL (4.8-10.8)
[2017-09-26 17:58] LABS: ALBUMIN 4.1 gm/dl (3.4-5.0); ALT/SGPT 17 U/L (12-78); BLOOD UREA NITROGEN 14 mg/dl (7-18); CALCIUM 9.6 mg/dl (8.5-10.1); CARBON DIOXIDE 27 mmol/L (21-32); GLUCOSE 81 mg/dl (70-99); LIPASE 184 U/L (73-393); POTASSIUM 3.7 mmol/L (3.5-5.1); SODIUM 139 mmol/L (136-145)
[2017-09-26 18:01] LABS: ALKALINE PHOSPHATASE 75 U/L (45-117); AST/SGOT 14 U/L (15-37); TOTAL PROTEIN 7.8 gm/dl (6.4-8.2)
[2017-09-27 07:30] LABS: HEMOGLOBIN A1C 5.9 % (4.5-5.6)
== END | disposition home or self-care (01) ==
LOC: C.LAB1850 16:49
PROVIDERS: ATTEND Nurse Practitioner Adult Health
DX: F41.8 Other specified anxiety disorders (principal); E11.9 Type 2 diabetes mellitus without complications; R19.7 Diarrhea, unspecified; D64.9 Anemia, unspecified; R10.9 Unspecified abdominal pain

== ENCOUNTER 2017-10-29 13:48 | Emergency (ER) | payer OTHER ==
[~2017-10-29] VITALS: Ht 154.9 cm; Wt 60.0 kg
[~2017-10-29 13:48] MED LIST changes: -ALBINS/ NEB; -BSP/10 PO; -CHOL2000 PO; -HYDR50CA2 PO; -LXP/20 PO; -METF500T5 PO; -NRN100 PO; -SRQ25 PO
[2017-10-29 13:58] VITALS: TEMP 36.6; Ht 154.9 cm; Wt 60.0 kg
[2017-10-29] MEDS ORDERED: OPTIRAY 320 IV PRN (14:15)
[2017-10-29 14:26] VITALS: O2SAT 95
[2017-10-29 15:00] LABS: BASO % 0.3 %; BASO ABS # 0.02 K/uL (0-0.2); EOS ABS # 0.36 K/uL (0-0.5); HEMATOCRIT 40.3 % (37-47); IG# 0.04 K/uL (0.00-0.02); LYMPH % 30.6 %; LYMPH ABS # 1.85 K/uL (1.2-3.4); MEAN CELL VOLUME 90.8 fL (80-100); MEAN CORPUSCULAR HEMOGLOBIN 31.5 pg (25-34); MEAN CORPUSCULAR HGB CONC 34.7 g/dl (32-36); MEAN PLATELET VOLUME 10.3 fL (7.4-10.4); MONO % 8.1 %; MONO ABS # 0.49 K/uL (0.11-0.59); NEUT % 54.3 %; NEUT ABS # 3.28 K/uL (1.4-6.5); PLATELET COUNT 223 K/uL (130-400); RED CELL DISTRIBUTION WIDTH CV 13.6 % (11.5-14.5); RED CELL DISTRIBUTION WIDTH SD 44.8 fL (36.4-46.3); WHITE BLOOD COUNT 6.04 K/uL (4.8-10.8)
--- NOTE | 2017-10-29 15:06 | DIAGNOSTIC IMAGING REPORT ---
L HAND MIN 3 VIEWS ROUTINE HISTORY: 27 years-old Female EVALUATE FOR TRAUMA/INJURY acute left hand pain status post injury COMPARISON: None available TECHNIQUE: 3 views of the left hand FINDINGS: There is no acute fracture, dislocation or significant degenerative changes. No opaque foreign body or focal soft tissue swelling. IMPRESSION: No acute bony abnormality. The above report was generated using voice recognition software. It may contain grammatical, syntax or spelling errors. Electronically signed by: Benny Mathews M.D. 10/29/2017 3:05 PM Dictated Date/Time: 10/29/2017 3:04 PM
[2017-10-29 15:22] LABS: ALBUMIN 4.2 gm/dl (3.4-5.0); CALCIUM 9.4 mg/dl (8.5-10.1); CREATININE 0.82 mg/dl (0.60-1.20); POTASSIUM 3.9 mmol/L (3.5-5.1)
[2017-10-29 15:33] LABS: TOTAL PROTEIN 8.1 gm/dl (6.4-8.2)
--- NOTE | 2017-10-29 16:11 | DIAGNOSTIC IMAGING REPORT ---
HEAD WITHOUT CONTRAST (CT) CLINICAL HISTORY: 27 years-old Female with left eval for fx. Acute head trauma TECHNIQUE: Multiple axial CT images of the head were obtained without contrast. A dose lowering technique was utilized adhering to the principles of ALARA. COMPARISON: CT cervical spine of same day, CT head 06/26/2007. FINDINGS: No acute intracranial hemorrhage, midline shift, intracranial mass, hydrocephalus, territorial ischemia or abnormal extra-axial collection. Unchanged punctate calcifications of the bilateral lentiform nuclei. The calvarium is intact. The paranasal sinuses, mastoid air cells, and middle ear cavities are clear. IMPRESSION: No acute intracranial abnormality or calvarial fracture. The above report was generated using voice recognition software. It may contain grammatical, syntax or spelling errors. Electronically signed by: Benny Mathews M.D. 10/29/2017 4:10 PM Dictated Date/Time: 10/29/2017 4:07 PM
--- NOTE | 2017-10-29 16:13 | DIAGNOSTIC IMAGING REPORT ---
(CHEST) THORAX WITH CLINICAL HISTORY: 27 years-old Female presenting with eval for injury, trauma. TECHNIQUE: Multidetector CT imaging of the chest was performed after the administration of intravenous contrast. IV contrast: 92 mL of Optiray 320. A dose lowering technique was used consistent with the principles of ALARA (as low as reasonably achievable). COMPARISON: 05/30/2017. CT DOSE (mGy.cm): The estimated cumulative dose is 1380.68 inclusive of multiple additional CT scans. FINDINGS: [employer] topogram: Unremarkable. On soft tissue windows, normal thyroid and thoracic inlet. No axillary, supraclavicular, hilar, or mediastinal lymphadenopathy. Normal aorta. Normal heart size. No pericardial or pleural effusion. Upper abdomen normal. On lung windows, minimal dependent changes likely atelectasis. No other focal nodule or infiltrate. Airways patent. On bone windows, normal osseous structures. IMPRESSION: 1. No acute intrathoracic injury. Electronically signed by: Roberto Moore M.D. 10/29/2017 4:11 PM Dictated Date/Time: 10/29/2017 4:08 PM
--- NOTE | 2017-10-29 16:14 | DIAGNOSTIC IMAGING REPORT ---
CERVICAL SPINE W/O CLINICAL HISTORY: 27 years-old Female with eval for fx. Acute neck trauma COMPARISON: CT head of same day. TECHNIQUE: Multiple axial CT images of the cervical spine were obtained without contrast. A dose lowering technique was utilized adhering to the principles of ALARA. FINDINGS: Vertebral body heights and alignment are normal. No fracture or subluxation is identified. The intervertebral disc spaces are preserved. No significant central canal or neural foraminal stenosis is identified. There is straightening of the normal cervical lordosis. The cervical soft tissues appear unremarkable. The visualized lung apices appear clear. IMPRESSION: 1. No acute cervical spine fracture or subluxation. 2. Straightening of the normal cervical lordosis may be secondary to positioning or paraspinal muscle spasm. The above report was generated using voice recognition software. It may contain grammatical, syntax or spelling errors. Electronically signed by: Benny Mathews M.D. 10/29/2017 4:13 PM Dictated Date/Time: 10/29/2017 4:10 PM
--- NOTE | 2017-10-29 16:17 | DIAGNOSTIC IMAGING REPORT ---
ABD/PELVIS IV CONTRAST ONLY CLINICAL HISTORY: 27 years-old Female presenting with trauma. TECHNIQUE: Multidetector CT of the abdomen and pelvis was performed after the administration of intravenous contrast. IV contrast: 92 mL of Optiray 320. A dose lowering technique was used consistent with the principles of ALARA (as low as reasonably achievable). COMPARISON: 06/09/2010. CT DOSE (mGy.cm): The estimated cumulative dose is 1380.68 mGy.cm. FINDINGS: [employer] topogram: Unremarkable. Lung bases: Minimal basilar opacities, likely atelectasis. Normal heart size. No pericardial or pleural effusion. Liver: Normal morphology. No liver lesion. Patent hepatic vasculature. Biliary: No intrahepatic or extrahepatic biliary ductal dilatation. Normal gallbladder. Pancreas: Normal. Spleen: Normal. Adrenal glands: Normal. Kidneys and ureters: Normal. No hydronephrosis. Bladder: Normal. Pelvic organs: Uterus and ovaries normal. Bowel: Normal. No bowel obstruction. Peritoneal cavity: No free fluid or intraperitoneal gas. Lymph nodes: No enlarged lymph nodes in the abdomen or pelvis. Vasculature: Aorta and IVC patent and normal in caliber. Abdominal wall: Normal. Musculoskeletal: Normal. IMPRESSION: 1. No acute intra-abdominal injury. Electronically signed by: Roberto Moore M.D. 10/29/2017 4:16 PM Dictated Date/Time: 10/29/2017 4:12 PM
--- NOTE | 2017-10-29 17:02 | DIAGNOSTIC IMAGING REPORT ---
CERVICAL SPINE 2 OR 3 VIEWS CLINICAL HISTORY: 27 years-old Female presenting with Flexion extension edis eval for subluxation. TECHNIQUE: Lateral views of the cervical spine in neutral, flexion, and extension positioning were obtained. COMPARISON: CT from 10/29/2017. FINDINGS: Straightening of normal cervical lordosis possibly positional. Vertebral bodies maintain normal height and alignment. Intervertebral disc spaces preserved. No degenerative change. No radiographic evidence of fracture or subluxation. Normal atlantodental interval. No prevertebral soft tissue swelling. On flexion, limited change in positioning evidence with mild kyphotic curvature. No abnormal subluxation. On extension, no significant change from neutral positioning is evident. No abnormal subluxation. IMPRESSION: 1. Limited flexion and extension may be due to muscle spasm. 2. No abnormal subluxation. No radiographic evidence of acute osseous injury. Electronically signed by: Roberto Moore M.D. 10/29/2017 5:01 PM Dictated Date/Time: 10/29/2017 4:59 PM
[2017-10-29 17:29] VITALS: BP 97/50; PULSE 71; O2SAT 98
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
[2017-10-30] MEDS ORDERED: METF500T5 PO (16:00)
[2017-10-30] MEDS ORDERED: HYDR50CA2 PO (21:41)
[2017-10-30] MEDS ORDERED: CHOL2000 PO (21:41)
[2017-10-30] MEDS ORDERED: SRQ25 PO (21:41)
[2017-10-30] MEDS ORDERED: BSP/10 PO (21:41)
[2017-10-30] MEDS ORDERED: NRN100 PO (21:41)
[2017-10-30] MEDS ORDERED: ALBINS/ NEB (21:41)
[2017-10-30] MEDS ORDERED: LXP/20 PO (21:41)
== END 2017-10-29 17:42 | disposition home or self-care (01) ==
LOC: EDBD 13:48 → C.EDA 13:50
DX: S09.90XA Unspecified injury of head, initial encounter (principal); M54.2 Cervicalgia; S69.92XA Unspecified injury of left wrist, hand and finger(s), initial encounter; R56.9 Unspecified convulsions; V44.5XXA Car driver injured in collision with heavy transport vehicle or bus in traffic accident, initial encounter; Y92.411 Interstate highway as the place of occurrence of the external cause; J45.909 Unspecified asthma, uncomplicated; N80.9 Endometriosis, unspecified; Z87.01 Personal history of pneumonia (recurrent); Z80.9 Family history of malignant neoplasm, unspecified; Z83.3 Family history of diabetes mellitus; Z83.79 Family history of other diseases of the digestive system; Z82.49 Family history of ischemic heart disease and other diseases of the circulatory system; Z84.1 Family history of disorders of kidney and ureter; Z83.6 Family history of other diseases of the respiratory system; F17.210 Nicotine dependence, cigarettes, uncomplicated; Z79.899 Other long term (current) drug therapy; Z91.048 Other nonmedicinal substance allergy status

== ENCOUNTER → 2017-10-29 | Outpatient (CLI) | payer OTHER ==
[~2017-10-29] MED LIST changes: -FAMO20TA9 PO
== END | disposition home or self-care (01) ==
LOC: C.LAB 14:22
DX: Z02.83 Encounter for blood-alcohol and blood-drug test (principal)

== ENCOUNTER 2017-10-30 14:40 | Emergency (ER) | payer OTHER ==
[~2017-10-30] VITALS: Ht 154.9 cm; Wt 70.0 kg
[2017-10-30 14:46] VITALS: TEMP 36.6; Ht 154.9 cm; Wt 70.0 kg
[2017-10-30] MEDS ORDERED: METOCLOPRAMIDE HCL INJ 5 MG/ML 2 ML VIAL IV STA (15:14)
[2017-10-30] MEDS ORDERED: ACETAMINOPHEN 500 MG TAB PO STA (15:14)
[2017-10-30] MEDS ORDERED: DiphenhydrAMINE HCL 50 MG/ML VIAL IV STA (15:14)
[2017-10-30] MEDS ORDERED: KETOROLAC TROMETHAMINE 30 MG/ML VIAL IV STA (15:14)
[2017-10-30] MEDS ORDERED: SODIUM CHLORIDE 0.9% 500ML 500 ML IV STA (15:14)
[2017-10-30] MEDS ORDERED: METF500T5 PO (16:00)
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
[2017-10-30 18:35] VITALS: BP 104/59; PULSE 65; O2SAT 97
[2017-10-30] MEDS ORDERED: CHOL2000 PO (21:41)
[2017-10-30] MEDS ORDERED: ALBINS/ NEB (21:41)
[2017-10-30] MEDS ORDERED: SRQ25 PO (21:41)
[2017-10-30] MEDS ORDERED: BSP/10 PO (21:41)
[2017-10-30] MEDS ORDERED: HYDR50CA2 PO (21:41)
[2017-10-30] MEDS ORDERED: LXP/20 PO (21:41)
[2017-10-30] MEDS ORDERED: NRN100 PO (21:41)
== END 2017-10-30 18:35 | disposition home or self-care (01) ==
LOC: EDBD 14:40 → C.EDB 14:42
DX: S06.0X0D Concussion without loss of consciousness, subsequent encounter (principal); M54.2 Cervicalgia; V49.40XD Driver injured in collision with unspecified motor vehicles in traffic accident, subsequent encounter; J45.909 Unspecified asthma, uncomplicated; Z83.3 Family history of diabetes mellitus; Z82.49 Family history of ischemic heart disease and other diseases of the circulatory system; Z82.0 Family history of epilepsy and other diseases of the nervous system; F17.200 Nicotine dependence, unspecified, uncomplicated

== ENCOUNTER → 2017-11-20 | Outpatient (CLI) | payer OTHER ==
[~2017-11-20] MED LIST changes: +ALBINS/ NEB; +BSP/10 PO; -CEPH500C2 PO; +CHOL2000 PO; +HYDR50CA2 PO; +LXP/20 PO; +METF500T5 PO; +NRN100 PO; +SRQ25 PO
[2017-11-20 16:48] LABS: HEP C IGG 13 YRS+OLDER_RFLX NEG (NEG)
== END | disposition home or self-care (01) ==
LOC: C.LAB1850 14:24
PROVIDERS: ATTEND Obstetrics & Gynecology
DX: Z11.3 Encounter for screening for infections with a predominantly sexual mode of transmission (principal); N91.1 Secondary amenorrhea

== ENCOUNTER → 2017-11-28 | Outpatient (CLI) | payer OTHER ==
--- NOTE | 2017-11-29 17:39 | EEG Procedure Note ---
EEG Procedure Note Date of Service Nov 28, 2017. Start / End Times Start Time: 2:05 PM End Time: 2:25 PM Referring Physician Sugar Mann History This is a 27-year-old female who presents with syncope. EEG for further evaluation of possible seizure etiology. Home Medication List Scheduled Buspirone HCl (Buspirone HCl), 20 MG PO QAM Cholecalciferol (Vitamin D3), 2,000 INTER.UNIT PO DAILY Escitalopram Oxalate (Escitalopram Oxalate), 20 MG PO QAM Gabapentin (Gabapentin), 100 MG PO QAM Metformin Hcl Er (Glucophage Er), 1,000 MG PO BID Quetiapine Fumarate (Quetiapine Fumarate), 25 MG PO HS Scheduled PRN Albuterol Sulf (Proventil 0.083% 2.5MG/3ML), 1 VIAL NEB Q6H PRN for Wheezing Hydroxyzine Pamoate (Vistaril), 50 MG PO TID PRN for Anxiety Description This is a 21 electrode EEG with a single channel dedicated to limited EKG. The electrodes were placed in accordance with the International 10-20 system. At the start of the recording the patient was in an awake state. Background was well organized and composed of symmetric mixed alpha and beta frequencies. There was a symmetric well-formed moderate amplitude 11-12 Hz posterior dominant rhythm that was reactive to eye opening and closure. Hyperventilation was not done. Intermittent photic stimulation at various frequencies produced no abnormalities. Sleep was indicated by vertex waves and symmetric sleep spindles. Interpretation This is a normal awake and asleep routine EEG. There was no electrographic seizures or epileptiform discharges. Clinical Correlation A normal EEG does not rule out epilepsy if there is a strong clinical suspicion.
== END | disposition home or self-care (01) ==
LOC: C.NEUR 13:51
PROVIDERS: ATTEND Psychiatry & Neurology Neurology
DX: R55 Syncope and collapse (principal)

== ENCOUNTER → 2017-11-28 | Outpatient (CLI) | payer OTHER ==
--- NOTE | 2017-11-28 15:48 | DIAGNOSTIC IMAGING REPORT ---
BRAIN WITHOUT CONTRAST HISTORY: Mental status change R55 Syncope and [id number] TECHNIQUE: Multiplanar multisequence MRI of the brain was performed without the use of contrast. COMPARISON STUDY: None. FINDINGS: There are no areas of restricted diffusion to suggest acute infarction. The midline structures are intact.. The mastoid air cells are clear. The ventricles and sulci are within normal limits for age. There is no mass, hematoma, midline shift. The major vascular flow-voids at the skull base are well maintained. Opacified right maxillary sinus. Mild mucosal thickening left maxillary sinus. Mild mucosal thickening mid and anterior ethmoid sinuses. IMPRESSION: No acute intracranial abnormality. The above report was generated using voice recognition software. It may contain grammatical, syntax or spelling errors. Electronically signed by: Newton Conte M.D. 11/28/2017 3:47 PM Dictated Date/Time: 11/28/2017 3:45 PM
== END | disposition home or self-care (01) ==
LOC: C.MRIBC 14:48
PROVIDERS: ATTEND Psychiatry & Neurology Neurology
DX: R55 Syncope and collapse (principal)

== ENCOUNTER → 2017-12-09 | Outpatient (CLI) | payer OTHER ==
--- NOTE | 2017-12-09 13:40 | DIAGNOSTIC IMAGING REPORT ---
FUSION CT SINUSES W/O CLINICAL HISTORY: 27 years-old Female presenting with J30.9 Allergic [id number] Chronic [id number]. TECHNIQUE: Multidetector CT of the sinuses was performed without the use of intravenous contrast. IV contrast: None. A dose lowering technique was used consistent with the principles of ALARA (as low as reasonably achievable). COMPARISON: None. CT DOSE (mGy.cm): The estimated cumulative dose is 589.16 mGy.cm. FINDINGS: Php Mysql Developer topogram: Unremarkable. Aerated secretions in the right maxillary sinus, which also demonstrates significant mucosal thickening. No significant sclerosis of the maxillary sinus beltran to suggest chronic sinusitis. No osseous erosion is apparent. Trace mucosal thickening in the left maxillary sinus. Remainder of paranasal sinuses and mastoid air cells clear. Middle ears clear. Mucosal thickening narrows the right ostiomeatal unit. The left ostiomeatal unit is patent. Nasofrontal ethmoid recesses patent. Mild rightward deviation of the anterior aspect of the bony nasal septum without evidence of bony spurring or bridging. No convincing evidence of osseous dehiscence of the bony optic canals or carotid siphons. No significant anatomic variants. Orbits normal. Upper cervical spine normal. Superficial soft tissues of the face normal. IMPRESSION: 1. Findings consistent with acute sinusitis of the right maxillary sinus. Mucosal thickening narrows the right ostiomeatal unit. 2. No CT evidence of chronic sinusitis or significant anatomic variant. Electronically signed by: Roberto Moore M.D. 12/09/2017 1:38 PM Dictated Date/Time: 12/09/2017 1:33 PM
== END | disposition home or self-care (01) ==
LOC: C.CTS 13:02
PROVIDERS: ATTEND Physician Assistant
DX: J32.9 Chronic sinusitis, unspecified (principal); J30.9 Allergic rhinitis, unspecified

== ENCOUNTER 2018-01-03 10:10 | Emergency (ER) | payer OTHER ==
[~2018-01-03] VITALS: Ht 154.9 cm; Wt 60.0 kg
[2018-01-03 10:25] VITALS: TEMP 36.6; Ht 154.9 cm; Wt 60.0 kg
[2018-01-03] MEDS ORDERED: LORAZEPAM 0.5 MG TAB SL STA (10:42)
[2018-01-03] MEDS ORDERED: NICOTINE 21 MG/24 HR TDSY TD STA (10:42)
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
--- NOTE | 2018-01-03 10:51 | DIAGNOSTIC IMAGING REPORT ---
CHEST ONE VIEW PORTABLE CLINICAL HISTORY: 27 years-old Female presenting with syncope. TECHNIQUE: Portable upright AP view of the chest was obtained. COMPARISON: 09/24/[address] from 10/29/2017. FINDINGS: Cardiomediastinal silhouette normal. No focal opacity. No large effusion or pneumothorax. Osseous structures normal. Upper abdomen normal. IMPRESSION: 1. No acute cardiopulmonary disease. Electronically signed by: Roberto Moore M.D. 01/03/2018 10:50 AM Dictated Date/Time: 01/03/2018 10:49 AM
[2018-01-03 11:10] LABS: BASO % 0.3 %; BASO ABS # 0.03 K/uL (0-0.2); EOS % 1.3 %; EOS ABS # 0.14 K/uL (0-0.5); HEMATOCRIT 41.6 % (37-47); HEMOGLOBIN 14.6 g/dL (12.0-16.0); IG# 0.04 K/uL (0.00-0.02); LYMPH % 17.5 %; LYMPH ABS # 1.87 K/uL (1.2-3.4); MEAN CORPUSCULAR HEMOGLOBIN 31.6 pg (25-34); MEAN CORPUSCULAR HGB CONC 35.1 g/dl (32-36); MONO % 8.5 %; MONO ABS # 0.91 K/uL (0.11-0.59); NEUT ABS # 7.68 K/uL (1.4-6.5); PLATELET COUNT 243 K/uL (130-400); RED CELL DISTRIBUTION WIDTH CV 13.8 % (11.5-14.5); RED CELL DISTRIBUTION WIDTH SD 45.7 fL (36.4-46.3); WHITE BLOOD COUNT 10.67 K/uL (4.8-10.8)
[2018-01-03 11:29] LABS: ALT/SGPT 18 U/L (12-78); AST/SGOT 12 U/L (15-37); BLOOD UREA NITROGEN 11 mg/dl (7-18); CALCIUM 9.2 mg/dl (8.5-10.1); CARBON DIOXIDE 25 mmol/L (21-32); GLUCOSE 92 mg/dl (70-99); POTASSIUM 3.6 mmol/L (3.5-5.1); SODIUM 136 mmol/L (136-145)
[2018-01-03 11:40] LABS: ALKALINE PHOSPHATASE 85 U/L (45-117); TOTAL PROTEIN 8.1 gm/dl (6.4-8.2)
[2018-01-03] MEDS ORDERED: ATIVAN 1MG HOMEPACK PO ONE (13:15)
[2018-01-03 13:41] VITALS: BP 101/59; PULSE 98; O2SAT 99
== END 2018-01-03 13:42 | disposition home or self-care (01) ==
LOC: C.EDB 10:11 → C.EDA 13:42
DX: F41.9 Anxiety disorder, unspecified (principal); Z91.14 Patient's other noncompliance with medication regimen; F32.9 Major depressive disorder, single episode, unspecified; F43.10 Post-traumatic stress disorder, unspecified; E11.9 Type 2 diabetes mellitus without complications; F12.90 Cannabis use, unspecified, uncomplicated; J45.909 Unspecified asthma, uncomplicated; Z98.51 Tubal ligation status; Z90.721 Acquired absence of ovaries, unilateral; Z87.01 Personal history of pneumonia (recurrent); Z80.9 Family history of malignant neoplasm, unspecified; Z83.3 Family history of diabetes mellitus; Z82.49 Family history of ischemic heart disease and other diseases of the circulatory system; Z82.0 Family history of epilepsy and other diseases of the nervous system; Z79.84 Long term (current) use of oral hypoglycemic drugs; Z79.899 Other long term (current) drug therapy; Z91.048 Other nonmedicinal substance allergy status

== ENCOUNTER 2019-03-15 13:30 | Inpatient (IN) ==
--- OUTSIDE RECORDS SUMMARY | 2019-03-15 13:43 | External Medical Summary | Continuity of Care Document ---
:1990 Author Name Samara Galvan, Provider Address Unavailable Unavailable , Care Team Providers Name Role Phone La Galvan, Augusta Unavailable [email or web address] Hansa Galvan, Ray Guevara Unavailable [email or web address] JIN [email or web address] M.D., V Unavailable Unavailab le Unavailable Unavailable Unavailable Problems Neck pain (723.1) (M54.2) Hypertrophy of nasal turbinates (478.0) (J34.3) Endometriosis (617.9) (N80.9) Dysmenorrhea (625.3) (N94.6) External hemorrhoids (455.3) (K64.4) [place]merz (625.2) (N94.0) Esophageal reflux (530.81) (K21.9) Unequal leg length (acquired) (736.81) (M21.70) Acute pharyngitis, unspecified etiology (462) (J02.9) Dysplasia of cervix, low grade (SHILPA 1) (622.11) (N87.0) 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) Pharyngitis, unspecified etiology (462) (J02.9) Secondary amenorrhea (626.0) (N91.1) Memory loss (780.93) (R41.3) Cannabis use, unspecified, uncomplicated (305.20) (F12.90) Atypical squamous cells of undetermined significance (ASCUS) on Papanicolaou smear of cervix (795.01) (R87.610) Genital herpes simplex (054.10) (A60.00) History of female sterilization (V45.89) (Z98.890) Asthma (493.90) (J45.909) Viral warts (078.10) (B07.9) Low back pain (724.2) (M54.5) Chronic sinusitis (473.9) (J32.9) Deviated nasal septum (470) (J34.2) Vitamin D deficiency (268.9) (E55.9) PTSD (post-traumatic stress disorder) (309.81) (F43.10) Anorexia (783.0) (R63.0) Abnormal weight loss (783.21) (R63.4) Depression with anxiety (300.4) (F41.8) Diabetes mellitus (250.00) (E11.9) Allergies and Adverse Reactions No Known Drug Allergies (Allergy) Animal dander - Cats (Allergy) Animal dander - Dogs (Allergy) Dust (Allergy) Grass (Allergy) Pollen (Allergy) Medications valACYclovir HCl - 500 MG Oral Tablet; t kimberley 1 tablet by mouth twice a day for 3 days Mandy Goodman Start: 23-Dec-2017 Quantity: 6 Refills: 1 OneTouch Verio In Vitro Strip; USE 4 TIMES PER DAY Carole Singh M.D. Start: 11-Mar-2018 Quantity: 1 Ralitsa 100 Strip Box Refills: 3 Albuterol AERS Refills: 0 valACYclovir HCl - 500 MG Oral Tablet; TAKE ONE CAPLET BY MOUTH ONCE DAILY Mandy Goodman Start: 05-Jun-2018 Quantity: 90 Refills: 1 OneTouch UltraSoft Lancets; Test 4 times daily Everette cohen M.D. Start: 18-Apr-2012 Quantity: 1 Ralitsa 100 Unit Box Refills: 0 valACYclovir HCl - 500 MG Oral Tablet; TAKE 1 TABLET B Y MOUTH EVERY DAY Mandy Goodman Start: 05-Jun-2018 Quantity: 30 Refills: 6 Lidocaine HCl 2 % GEL; apply as directed Mandy Goodman Start: 24-Feb-2015 Quantity: 30 Refills: 1 Nicotine 21 MG/24HR Transdermal Patch 24 Hour; APPLY 1 PATCH DAILY DIRECTED. Mandy Tovar Start: 19-Aug-2018 Quantity: 21 Ralitsa Refills: 0 OneTouch Verio Flex System w/Device Kit; USE DIRECTED. Anselmo pinzon M.D. Ray S Start: 02-Sep-2018 Quantity: 1 Refills: 0 Medical Marijuana Refills: 0 Procedures History of Cervical Conization Loop Electrode Excision Status: Completed History of Laparoscopy (Diagnostic) Stat us: Completed History of Dental Surgery Status: Comple sony History of Tonsillectomy Status: Complet ed History of Section Status: Comp leted History of Gynecologic Services Intrauterine Device (IUD) Re moval Status: Completed History of Cervical Conization Loop Electrode Excision Status: Completed History of Salpingo-oophorectomy Left Side Status: Completed History of Need for DTP vaccine Status: Completed History of BCP ( control pills) initiation Status: Completed History of Counseling for initiation of control method Status: Completed History of Tubal Ligation Status: Comple sony History of Adenoidectomy Status: Complet ed Immunizations HPV (Gardasil) On: 19-Sep-2006 0:00 HPV (Gardasil) On: 09-Dec-2006 HPV (Gardasil) On: Apr-2007 Fluzone INJ On: 04-Jul-2012 9:44 Lot #: [id number], SANOFI PASTEUR Tdap (Adacel) On: 22-Oct-2012 10:09 Lot #: [id number], SANOFI PASTEUR Influenza On: 22-Jun-2013 9:28 Lot #: [id number], SANOFI PASTEUR Influenza On: 23-Aug-2014 15:47 Lot #: [id number], SANOFI PASTEUR Influenza On: 01-Aug-2016 10:35 Lot #: [id number], SANOFI PASTEUR Fluzone Quadrivalent 0.5 ML Intramuscular Suspension P refilled Syringe On: 03-Jul-2018 8:40 Lot #: [id number], SANOFI PASTEUR Family History Grandfather Family history of Lung Cancer (V16.1) Status: Active Family history of lung cancer (V16.1) (Z80.1) Status: Active Grandmother Family history of Breast Cancer (V16.3) Status: Active Grandmother Family history of Type 2 Diabetes Mellitus Status: Active Family history of diabetes mellitus (V18.0) (Z83.3) Status: Active Mother Family history of diabetes mellitus (V18.0) (Z83.3) Status: Active Grandfather Family history of diabetes mellitus (V18.0) (Z83.3) Status: Active Family history of colon cancer (V16.0) (Z80.0) Status: Activ e uncle Family history of lung cancer (V16.1) (Z80.1) Status: Active natural daughter FHx: allergies (V19.6) (Z84.89) Status: Active Family history of asthma (V17.5) (Z82.5) Status: Active Social History - Smoking Status Smoker. current status unknown Plan of Treatment Planned Encounters Appointment; Ray Santo M.D. Start: 27-Mar-2019 9:00 Req uest Planned Observations Planned Goals not documented Results No Known Results Results not documented Encounters Appointment; Kavitha Goodman M.D. 31-Dec-2018 14:00 Encounter Diagnosis: Problem not documented Appointment; Ray Santo M.D. 31-Oct-2018 13:30 Encounter Diagnosis: Problem not documented Appointment; Aidee Guaman R.D. 29-Sep-2018 15:00 Encounter Diagnosis: Problem not documented Appointment; Iris Wade PA-C 10-Sep-2018 14:00 Encounter Diagnosis: Problem not documented Appointment; Augusta Tovar M.D. 8 11:20 Encounter Diagnosis: Problem not documented Appointment; Iris Wade PA-C 03-Jul-2018 8:00 Encounter Diagnosis: Problem not documented Appointment; Kavitha Goodman M.D. 25-Jun-2018 12:30 Encounter Diagnosis: Problem not documented Appointment; [employer] SC1, Procedure Room 25-Jun-2018 12:30 Encounter Diagnosis: Problem not documented Appointment; Kavitha Goodman M.D. 12-May-2018 12:15 Encounter Diagnosis: Problem not documented Appointment; Sugar Mann DO 08-May-2018 15:00 Encounter Diagnosis: Problem not documented Appointment; Iris Wade PA-C 24-Mar-2018 13:45 Encounter Diagnosis: Problem not documented Appointment; Augusta Tovar M.D. 8 14:40 Encounter Diagnosis: Problem not documented Appointment; Kavitha Goodman M.D. 26-Feb-2018 13:15 Encounter Diagnosis: Problem not documented Appointment; Augusta Tovar M.D. 8 14:40 Encounter Diagnosis: Problem not documented Appointment; Toña Sidhu PA-C 26-Dec-2017 13:30 Encounter Diagnosis: Problem not documented Appointment; Grzegorz Valle M.D. 05-Dec-2017 13:00 Encounter Diagnosis: Problem not documented Appointment; Augusta Tovar M.D. 8 11:40 Encounter Diagnosis: Problem not documented Appointment; Mehnaz Warner PA-C 25-Nov-2017 15:40 Encounter Diagnosis: Problem not documented Appointment; Sugar Mann DO 21-Nov-2017 13:00 Encounter Diagnosis: Problem not documented Appointment; Echo/Stress, Echo/Stress 20-Nov-2017 15:15 Encounter Diagnosis: Problem not documented Appointment; Kavitha Goodman M.D. 20-Nov-2017 13:45 Encounter Diagnosis: Problem not documented Appointment; Echo/Stress, Echo/Stress 18-Nov-2017 11:00 Encounter Diagnosis: Problem not documented Appointment; Augusta Tovar M.D. 8 14:20 Encounter Diagnosis: Problem not documented Appointment; Iris Wade PA-C 03-Oct-2017 9:00 Encounter Diagnosis: Problem not documented Appointment; Miguelina Moran CRNP 26-Sep-2017 15:30 Encounter Diagnosis: Problem not documented Appointment; Augusta Tovar M.D. 22-Jul-2017 15:40 Encounter Diagnosis: Problem not documented Appointment; Ray Santo M.D. 22-Jul-2017 13:00 Encounter Diagnosis: Problem not documented Appointment; Iris Wade PA-C 17-Jul-2017 8:30 Encounter Diagnosis: Problem not documented Appointment; Letty Carbone M.D. 31-May-2017 13:20 Encounter Diagnosis: Problem not documented Appointment; [employer] SC1, Nursing Station 24-Apr-2017 9:00 Encounter Diagnosis: Problem not documented Appointment; Babak Kirby PA-C 08-Apr-2017 8:30 Encounter Diagnosis: Problem not documented Appointment; [employer] SC1, Nursing Station 22-Mar-2017 9:00 Encounter Diagnosis: Problem not documented Appointment; Ray Santo M.D. 27-Mar-2019 9:00 Encounter Diagnosis: Problem not documented
[2019-03-15] MEDS ORDERED: ONDANSETRON INJ 2 MG/ML 2 ML VIAL IV STA (13:58)
[2019-03-15] MEDS ORDERED: SODIUM CHLORIDE 0.9% 1000ML 1,000 ML IV ONE (13:58)
[2019-03-15] MEDS ORDERED: MoRPHine SULFATE 4 MG/ML 1 ML CARP\\VIAL IV STA (13:58)
[2019-03-15 14:13] LABS: Appearance Urine Cloudy (Clear); Bacteria Urine Automated 4+ (Negative); Bilirubin Urine Negative (Negative); Blood Urine 3+ (Negative); Color Urine Dark Yellow; Epithelial Cell Urine Auto >30 /lpf (0-5); Glucose Urine UA Negative (Negative); Ketones Urine Trace (Negative); Leukocyte Esterase Urine 2+ (Negative); Nitrite Urine Positive (Negative); Protein Urine 2+ (Negative); Specific Gravity Urine 1.018 (1.000-1.030); Urobilinogen Urine Positive (Negative); WBC Urine Automated >30 /hpf (0-5)
[2019-03-15 14:17] LABS: Basophils # (auto) 0.02 K/uL (0-0.2); Basophils % (auto) 0.1 %; Eosinophils # (auto) 0.03 K/uL (0-0.5); Eosinophils % (auto) 0.2 %; Hematocrit (blood only) 41.9 % (37-47); Hemoglobin 14.6 g/dL (12.0-16.0); Immature Granulocytes # (auto) 0.11 K/uL (0.00-0.02); Immature Granulocytes % (auto) 0.6 %; Lymphocytes # (auto) 1.63 K/uL (1.2-3.4); Lymphocytes % (auto) 8.8 %; Mean Corpuscular Hgb Conc 34.8 g/dL (32-36); Mean Corpuscular Volume 91.3 fL (80-100); Mean Platelet Volume 9.5 fL (7.4-10.4); Monocytes % (auto) 10.8 %; Neutrophils # (auto) 14.81 K/uL (1.4-6.5); Neutrophils % (auto) 79.5 %; Platelet Count 216 K/uL (130-400); RDW Coefficient of Variation 13.8 % (11.5-14.5); Red Blood Count 4.59 M/uL (4.2-5.4)
[2019-03-15 14:32] LABS: Mucus Urine Present (None Prsent)
[2019-03-15 14:33] LABS: Albumin Level 3.8 gm/dl (3.4-5.0); BUN Creatinine Ratio 8.4 (10-20); Calcium 9.1 mg/dl (8.5-10.1); Creatinine Clr Calc Pharmacy 65.3 ml/min; Est GFR (African American) 93.2; Est GFR (Non-African American) 80.4; Potassium 3.5 mmol/L (3.5-5.1)
[2019-03-15 14:36] LABS: Albumin Globulin Ratio 0.9 (0.9-2); Bilirubin,Total 1.4 mg/dl (0.2-1); Globulin 4.4 gm/dl (2.5-4.0); Total Protein 8.2 gm/dl (6.4-8.2)
[2019-03-15 14:42] LABS: Pregnancy Test, Serum Negative (Negative)
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
[2019-03-15] MEDS ORDERED: cefTRIAXone SODIUM 1,000 MG/50 ML BAG IV STA (15:02)
[2019-03-15] MEDS ORDERED: IOVERSOL 100ml IV PRN (15:10)
--- NOTE | 2019-03-15 15:25 | CT Scan Report ---
CT abd pelvis IV con only CLINICAL HISTORY: Left flank and lower quadrant pain COMPARISON STUDY: 08/28/2018 TECHNIQUE: The patient was scanned in a dynamic helical fashion during intravenous administration of 94 cc of Optiray 320. A dose lowering technique was utilized adhering to the principles of ALARA. CT DOSE: 255.65 mGy.cm FINDINGS: Lower chest: The heart is normal in size and configuration, without pericardial effusion. The lung ba ses and pleural spaces are clear. Liver: The contrast-enhanced liver is normal in size, contour, and attenuation. There is no intrahepa tic biliary ductal dilatation. The hepatic veins and portal veins are patent. Gallbladder: Unremarkable. Spleen: Normal in size and attenuation. Pancreas: Unremarkable. Adrenal glands: Unremarkable. Kidneys: There is mild left-sided uroepithelial enhancement. There is no hydronephrosis. There is a 3 cm focus of diminished enhancement involving the interpolar portion of the left kidney. The findings likely reflect lobar nephronia/acute focal nephritis. Clinical correlation is advocated. Short-term imaging is recommended to document resolution and exclude the development of a renal abscess. No obst ructing calculi are visualized. Bowel: There are no transition zone to indicate bowel obstruction. There are no findings to indicate acute diverticulitis. There are no findings to indicate acute appendicitis. Peritoneum: There is small amount of free pelvic fluid present. There is no free intraperitoneal air. Vasculature: The abdominal aorta is normal in course and caliber. Adenopathy: None. Pelvic viscera: The bladder, and pelvic viscera are unremarkable. Skeletal structures: No destructive osseous lesions are seen. IMPRESSION: 1. No evidence of bowel obstruction. No evidence of free air 2. 3 cm wedge-shaped focus of diminished left renal enhancement without evidence for a rim sign. The findings are highly suggestive of lobar nephronia/acute focal nephritis. Clinical correlation is advo cated. Imaging follow-up is recommended to document resolution and exclude the development of a focal renal abscess Electronically signed by: Jhon Moraes M.D. 03/15/2019 3:23 PM
[2019-03-15] MEDS ORDERED: PIPERACILLIN/TAZOBACTAM 4.5 GM/120 ML BAG IV ONE (15:33)
[2019-03-15] MEDS ORDERED: PIPERACILL/TAZOBAC CONSULT ACTIVE PRN ×2 (15:33→17:09)
[2019-03-15] MEDS ORDERED: PIPERACILLIN/TAZOBACTAM 4.5 GM in DEXTROSE 5% 100 ML IV ONE (15:45)
[2019-03-15] MEDS ORDERED: ACETAMINOPHEN 500 MG TAB PO STA (15:50)
[2019-03-15] MEDS ORDERED: HYDROmorphone INJ 0.5 MG/0.5 ML SYR IV STA (15:50)
--- NOTE | 2019-03-15 16:14 | History & Physical Report ---
Date of Service March 15, 2019 Assessment & Plan (1) Acute pyelonephritis: Left nephronia noted on CT scan with evidence of UTI. Blood and urine cultures obtained. Continue intravenous Zosyn. Await culture results. Administer IV fluids. Pain control measures as needed. Renal ultrasound tomorrow Present on Admission?: Yes (2) Intrinsic asthma: Stable. Ventolin inhaler as needed (3) Borderline diabetic: She does not currently take any medication or insulin. Will use ADA diet and sliding scale coverage as needed (4) DVT prophylaxis: Early ambulation History of Present Illness Chief Complaint: Fever, chills, flank pain, hematuria Primary Care Provider: Augusta Shelton MD 28-year-old female with a 1 day history of left flank pain, fever, hematuria. She came to the ED for evaluation. CT scan reveals evidence of left lobar nephronia but no overt abscess. She was given intravenous fluids and Zosyn in the ED. Urine and blood cultures were obtained. She is admitted for further evaluation and treatment. Renal ultrasound will be done tomorrow to reassess the left kidney. Allergies Allergy/AdvReac Type Severity Reaction Status Date / Time cat dander Allergy Intermediate HIVES, Verified 03/15/19 16:09 CONGESTION dog dander Allergy Intermediate HIVES, Verified 03/15/19 16:09 CONGESTION grass pollen-perennial rye, Allergy Intermediate HIVES,CONGE Verified 03/15/19 16:09 standar STION Home Medications Home Medications Medication Instructions Recorded Confirmed Type albuterol sulfate [Ventolin HFA] 1 puff INHALATION Q4H PRN 09/16/18 12/10/18 History aripiprazole [Abilify Maintena] 400 mg IM Q4WK 03/15/19 03/15/19 History hydroxyzine pamoate 50 mg PO TID PRN 03/15/19 03/15/19 History Past Med/Surg History Medical History Anxiety (Chronic) Asthma exacerbation (Acute) Non compliance w medication regimen (Acute) Non-cardiac chest pain (Acute) URI (upper respiratory infection) (Acute) History of sterilization procedure Social History Preferred Language: Maltese Feels Safe at Home: Hesitant to Answer Smoking Status: Current every day smoker Hx Alcohol Use: Yes Hx Substance Use: Yes Review of Systems Review of Systems: Constitutional- fever and chills ENT-no blurred vision, no double vision, no epistaxis, no sore throat Respiratory-no cough, no wheezing, no shortness of breath Cardiac-no palpitations, no chest pain, no syncope GI-no nausea, vomiting, diarrhea, melena, hematochezia -hematuria and left flank pain Musculoskeletal-no joint pain, no muscle tenderness Skin-no bruising, no rashes, no pruritus Neuro-no isolated weakness, no paresthesia, no weakness Psych-no depression, no anxiety Physical Exam Physical Exam: General-alert and oriented x3. Fever documented HEENT-head atraumatic and normocephalic, TMs intact bilaterally, pupils equal and reactive to light, extraocular muscles intact Neck-no lymphadenopathy or thyromegaly, trachea midline Chest-clear to auscultation percussion. No rales wheezing or rhonchi Cardiac-regular rate and rhythm, normal S1 and S2, no murmurs Abdomen-normal bowel sounds, nontender, no hepatosplenomegaly. Left costovertebral angle tenderness Extremities-no cyanosis, clubbing, or edema Neuro-cranial nerves II through XII intact, motor and sensory function within normal limits, strength symmetrical 5/5, no focal deficits Psych-normal affect, normal mood Results & Data Vital Signs (Past 12 Hours) Vital Signs Temp Pulse Pulse Resp BP BP Pulse Ox 03/15/19 15:53 37.9 C H 94 H 20 111/70 100 03/15/19 14:56 78 17 101/68 99 03/15/19 14:21 99 H 18 97/64 L 99 03/15/19 13:28 37.6 C H 103 H 22 108/73 97 Laboratory Results 03/15/19 14:07 03/15/19 14:07 PG Care Time/CCT Total # of Minutes Spent Total Time Spent with Patient: Total time spent is greater than 50% in coordination of care (as documented) at patient's floor/unit and/or counseling patient:
[2019-03-15] MEDS ORDERED: ALBUTEROL HFA 8 GM INHALER INH PRN (17:09)
[2019-03-15] MEDS ORDERED: ALUMINUM/MAGNESIUM SUSP 30 ML UDC PO PRN (17:09)
[2019-03-15] MEDS ORDERED: ONDANSETRON INJ 2 MG/ML 2 ML VIAL IV PRN (17:09)
[2019-03-15] MEDS ORDERED: ACETAMINOPHEN 325 MG TAB PO PRN (17:09)
[2019-03-15] MEDS: SODIUM CHLORIDE 0.9% 1000ML 1,000 ML IV SCH (17:41)
[2019-03-15] MEDS: INSULIN ASPART 100 UNITS/ML 3 ML PEN SC SCH ×2 (17:43→21:13)
[2019-03-15] MEDS: HYDROmorphone INJ 1 MG/ML SYRINGE IV PRN (17:50)
[2019-03-15] MEDS ORDERED: PNEUMOCOCCAL ADMINISTRATION CHARGE ONE (18:00)
[2019-03-15] MEDS ORDERED: PNEUMOCOCCAL POLYSACCHARIDES 25 MCG/0.5 ML VIAL/SYR IM ONE (18:00)
[2019-03-15] MEDS: NICOTINE 14 MG/24 HR PATCH TD SCH (21:12)
[2019-03-15] MEDS: PIPERACILLIN/TAZOBACTAM 3.375 GM in DEXTROSE 5% 100 ML IV SCH (22:24)
[2019-03-16] MEDS: SODIUM CHLORIDE 0.9% 1000ML 1,000 ML IV SCH ×3 (02:01→16:36)
[2019-03-16] MEDS: HYDROmorphone INJ 1 MG/ML SYRINGE IV PRN ×5 (02:07→20:15)
[2019-03-16] MEDS: PIPERACILLIN/TAZOBACTAM 3.375 GM in DEXTROSE 5% 100 ML IV SCH ×2 (05:51→13:48)
[2019-03-16 06:26] LABS: Basophils # (auto) 0.02 K/uL (0-0.2); Basophils % (auto) 0.2 %; Eosinophils # (auto) 0.09 K/uL (0-0.5); Eosinophils % (auto) 0.7 %; Hematocrit (blood only) 33.3 % (37-47); Hemoglobin 11.4 g/dL (12.0-16.0); Immature Granulocytes # (auto) 0.05 K/uL (0.00-0.02); Immature Granulocytes % (auto) 0.4 %; Lymphocytes # (auto) 1.47 K/uL (1.2-3.4); Lymphocytes % (auto) 11.9 %; Mean Corpuscular Hgb Conc 34.2 g/dL (32-36); Mean Corpuscular Volume 91.5 fL (80-100); Mean Platelet Volume 9.4 fL (7.4-10.4); Monocytes % (auto) 12.1 %; Neutrophils # (auto) 9.22 K/uL (1.4-6.5); Neutrophils % (auto) 74.7 %; Platelet Count 149 K/uL (130-400); RDW Coefficient of Variation 13.7 % (11.5-14.5); RDW Standard Deviation 45.8 fL (36.4-46.3); Red Blood Count 3.64 M/uL (4.2-5.4); White Blood Count 12.35 K/uL (4.8-10.8)
[2019-03-16 06:58] LABS: BUN Creatinine Ratio 9.5 (10-20); Creatinine Clr Calc Pharmacy 75.7 ml/min; Est GFR (African American) 111.3; Potassium 4.1 mmol/L (3.5-5.1)
--- NOTE | 2019-03-16 09:23 | Ultrasound Report ---
US renal/blad retro comp HISTORY: 28 years-old Female Left nephronia acute left-sided flank pain COMPARISON: CT abdomen and pelvis 03/15/2019 TECHNIQUE: Multiple real time sonographic images of the kidneys and urinary bladder were obtained ass essing grayscale appearance and color flow FINDINGS: Right kidney measures 10.5 x 4.7 x 4.7 cm and is unremarkable without renal calculi or hydronephrosis . The left kidney measures 12.0 x 5.8 x 6.2 cm and demonstrates no hydronephrosis or renal calculi. The re is an ill-defined area of hyperemia and decreased echogenicity about the interpolar left kidney me asuring approximately 3.9 x 2.7 x 3.9 cm (previously measuring approximately 3.7 x 3.1 cm on comparis on CT). No definite renal abscess or drainable fluid collection identified at this time. Urinary bladder wall thickening with partial distention. Ureteral jets not visualized. IMPRESSION: Focal area of ill-defined decreased echogenicity and hyperemia about the interpolar left kidney measu ring up to 3.9 cm is noted suggestive of focal polynephritis. No definite abscess identified on this exam. Follow-up recommended. The above report was generated using voice recognition software. It may contain grammatical, syntax o r spelling errors. Electronically signed by: Benny Mathews M.D. 03/16/2019 9:22 AM
[2019-03-16] MEDS: INSULIN ASPART 100 UNITS/ML 3 ML PEN SC SCH ×4 (09:49→21:54)
[2019-03-16] MEDS: NICOTINE 14 MG/24 HR PATCH TD SCH (09:50)
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
[2019-03-16] MEDS ORDERED: cefTRIAXone SODIUM 1,000 MG in DEXTROSE 5% 50 ML IV SCH (20:00)
[2019-03-17] MEDS: SODIUM CHLORIDE 0.9% 1000ML 1,000 ML IV SCH ×2 (00:22→08:07)
[2019-03-17] MEDS: HYDROmorphone INJ 1 MG/ML SYRINGE IV PRN ×2 (04:46→08:10)
[2019-03-17 07:26] LABS: Basophils # (auto) 0.02 K/uL (0-0.2); Basophils % (auto) 0.3 %; Eosinophils # (auto) 0.17 K/uL (0-0.5); Eosinophils % (auto) 2.3 %; Hematocrit (blood only) 32.1 % (37-47); Immature Granulocytes # (auto) 0.04 K/uL (0.00-0.02); Immature Granulocytes % (auto) 0.5 %; Lymphocytes # (auto) 1.59 K/uL (1.2-3.4); Lymphocytes % (auto) 21.8 %; Mean Corpuscular Hgb Conc 34.3 g/dL (32-36); Mean Corpuscular Volume 92.2 fL (80-100); Mean Platelet Volume 9.8 fL (7.4-10.4); Monocytes # (auto) 0.92 K/uL (0.11-0.59); Monocytes % (auto) 12.6 %; Neutrophils # (auto) 4.56 K/uL (1.4-6.5); Neutrophils % (auto) 62.5 %; Platelet Count 167 K/uL (130-400); RDW Coefficient of Variation 13.8 % (11.5-14.5); RDW Standard Deviation 46.2 fL (36.4-46.3); Red Blood Count 3.48 M/uL (4.2-5.4)
[2019-03-17] MEDS ORDERED: KETOROLAC TROMETHAMINE 15 MG/ML VIAL IV PRN (07:51)
[2019-03-17 08:03] LABS: BUN Creatinine Ratio 7.9 (10-20); Calcium 8.1 mg/dl (8.5-10.1); Creatinine Clr Calc Pharmacy 98.5 ml/min; Est GFR (African American) 139.5; Est GFR (Non-African American) 120.4; Potassium 4.1 mmol/L (3.5-5.1)
[2019-03-17] MEDS: NICOTINE 14 MG/24 HR PATCH TD SCH (08:07)
[2019-03-17 08:36] LABS: Prothrombin Time 10.4 Seconds (9.0-12.0)
[2019-03-17] MEDS: INSULIN ASPART 100 UNITS/ML 3 ML PEN SC SCH ×2 (08:43→12:56)
[2019-03-17] MEDS ORDERED: ENOXAPARIN INJ 40 MG/0.4 ML SYR SQ SCH (09:00)
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
== END 2019-03-17 13:45 | disposition home or self-care (01) | DRG 690 ==
LOC: ED 13:30 → 4E 16:13 → SUATTDRO 16:13 → 4E 16:48

== ENCOUNTER 2025-03-10 11:12 | Inpatient (IN) ==
--- NOTE | 2025-03-10 11:57 | Emergency Department Note ---
History of Present Illness General Chief complaint: Infection Stated complaint: ARM INFECTION, OUT OF ANTIBIOTICS Time Seen by Provider: 03/10/25 11:47 History of Present Illness Maximum Pain Intensity: 5 This is a 34-year-old female that presents to the emergency department via private vehicle with complaints of "left arm infection". Patient states that she injected methamphetamine into her left upper extremity on the of this month. The patient notes that symptoms began on the to include left arm pain, swelling and redness. She notes that she was seen here in the ED and started on antibiotics. Patient notes that despite the antibiotics there is still now a swollen and painful area to the left distal bicep region. She also notes a small developing area to the left ventral forearm. The patient denies any fevers or chills. No nausea or vomiting. The patient does note that she is finishing the antibiotics and is concerned secondary to persistence of symptoms in the left upper extremity. Current pain 01/23.. Home Medications Medication Instructions Recorded Confirmed Type albuterol sulfate 90 mcg/actuation 1 - 2 puff inhalation Q4H PRN SOB 07/04/21 03/10/25 History aerosol inhaler (ProAir HFA) or Wheezing acetaminophen 500 mg tablet 500 mg PO HS 05/06/23 03/10/25 History (Tylenol Extra Strength) docusate sodium 100 mg capsule 100 mg PO BID 05/18/23 03/10/25 History (Stool Softener) hydroxyzine HCl 25 mg tablet 50 mg PO Q4H PRN Anxiety 05/18/23 03/10/25 History lidocaine 5 % topical patch 3 patch topical DAILY #30 ea 05/18/23 03/10/25 Rx bupropion HCl 100 mg tablet,12 hr 100 mg PO QAM 03/10/25 03/10/25 History sustained-release cariprazine 3 mg capsule (Vraylar) 3 mg PO QAM 03/10/25 03/10/25 History cholecalciferol (vitamin D3) 50 50 mcg PO QAM 03/10/25 03/10/25 History mcg (2,000 unit) capsule (Vitamin D3) cyclobenzaprine 10 mg tablet 10 mg PO HS 03/10/25 03/10/25 History gabapentin 100 mg capsule 100 mg PO QAM 03/10/25 03/10/25 History ibuprofen 600 mg tablet 600 mg PO HS 03/10/25 03/10/25 History loratadine 10 mg tablet 10 mg PO QAM 03/10/25 03/10/25 History mirabegron 50 mg tablet,extended 50 mg PO QAM 03/10/25 03/10/25 History release 24 hr (Myrbetriq) nicotine 21 mg/24 hr daily 1 patch topical DAILY 03/10/25 03/10/25 History transdermal patch oxcarbazepine 300 mg tablet 300 mg PO BID 03/10/25 03/10/25 History rosuvastatin 5 mg tablet (Crestor) 5 mg PO QAM 03/10/25 03/10/25 History solifenacin 5 mg tablet 5 mg PO QAM 03/10/25 03/10/25 History trazodone 100 mg tablet 100 mg PO HS 03/10/25 03/10/25 History Allergies Allergy/AdvReac Type Severity Reaction Status Date / Time cat dander Allergy Intermediate HIVES, Verified 08/21/23 10:26 CONGESTION dog dander Allergy Intermediate HIVES, Verified 08/21/23 10:26 CONGESTION grass pollen-perennial rye, Allergy Intermediate HIVES,CONGE Verified 08/21/23 10:26 standar STION house dust Allergy Intermediate CONGESTION Verified 08/21/23 10:26 Past Med/Surg History Problem List (Updated 03/10/25 @ 22:16 by Miguel Sanderson PA-C) Bipolar disorder Lactic acidosis Cellulitis of left upper extremity (Acute) Cellulitis (Acute) COVID-19 (Acute) Thoracic back pain Sciatic pain Lower back pain Nocturnal enuresis Stress incontinence Urge incontinence (Acute) Urinary incontinence (Chronic) Diabetes mellitus Hyperlipemia Vitamin D deficiency (Chronic) Unequal leg length (acquired) (Acute) PTSD (post-traumatic stress disorder) (Acute) Hypertrophy of nasal turbinates (Acute) High risk HPV infection (Acute) Genital herpes simplex (Acute) External hemorrhoids (Acute) Esophageal reflux (Acute) Endometriosis (Acute 04/12/13) Dysplasia of cervix, low grade (SHILPA 1) (Acute) Deviated nasal septum (Acute) Depression with anxiety (Chronic) Chronic sinusitis (Acute) Cannabis use, unspecified, uncomplicated (Acute) Atypical squamous cells of undetermined significance (ASCUS) on Papanicolaou smear of cervix (Acute) Asthma (Acute 04/12/13) Health care maintenance Amphetamine abuse, episodic (Acute) Smoking (Acute) Bipolar depression (Acute) Borderline personality disorder Medical History Anxiety Neck pain Controlled type 2 diabetes mellitus Lab test negative for COVID-19 virus Anxiety Superficial phlebitis Elevated WBC count H/O diabetes mellitus Otitis externa of right ear Ear pain Gestational diabetes Situational stress Substance abuse Abnormal weight loss Anorexia Dysmenorrhea History of female sterilization Memory loss Pharyngitis Pneumonia (04/26/13) Secondary amenorrhea Weakness No pertinent family history Acute pyelonephritis History of sterilization procedure Anxiety Surgical History S/P tubal ligation S/P tonsillectomy History of salpingo-oophorectomy History of laparoscopy S/P section S/P LEEP of cervix H/O adenoidectomy History of tubal ligation (04/12/13) S/P removal of left ovary (04/12/13) Family History Grandmother (Paternal) Breast cancer Daughter Asthma Grandfather (Maternal) Colorectal cancer Mother Diabetes Stomach cancer Grandfather (Paternal) Lung cancer Uncle Lung cancer Other No pertinent family history Denies family history of Hypertension Social History Smoking Status: Current every day smoker Tobacco Type: E-cigarettes / Vaping Cigarettes Per Day: 1 pack; Second Hand Exposure: Yes; Do You Dip or Chew Tobacco: No; Hx Alcohol Use: Yes Hx Substance Use: Yes Last Used Substance: Hours (ago) Last Used Substance Other:: reports meth use this morning Substance Use Type Other:: medical marijuana Preferred Language: Panamanian Communication Ability: Effective Visual Impairment: No Limitations Hearing Ability: Normal Management Developer Required: No Beliefs That Will Affect Care: None Current Living Situation: Spouse Feels Safe at Home: Yes Gender Identity: Female Assistive Devices: Cane Review of Systems A total of 10 systems reviewed and were otherwise negative Physical Exam Vital Signs Vital Signs - 24 hr 03/10/25 11:24 03/10/25 11:59 03/10/25 12:11 Temperature 36.7 C Temperature Source Temporal Artery Scan Pulse Rate 100 H 94 H 85 Pulse Rhythm Regular Respiratory Rate 22 16 Blood Pressure 107/72 Blood Pressure Mean 83 Pulse Oximetry 96 98 Oxygen Delivery Method Room Air Room Air Sepsis Recent Fever Within 48 Hours No Sepsis New/Unexplained Change in Mental Status N/A Sepsis Action Taken by Nursing No Action Required VITAL SIGNS - Vital signs and nursing notes were reviewed. Stable and afebrile. GENERAL -34-year-old female appearing her stated age who is in no acute distress. Communicates well with provider and answers questions appropriately. SKIN -there is a prominent edematous region to the left anterior upper extremity just proximal to the flexor crease of the elbow. This is firm and erythematous. It is well-demarcated. Smaller, nonerythematous nodule noted to the ventral aspect of the left wrist. There is no lymphangitic streaking. HEAD - NC/AT. EYES - Sclera anicteric. MOUTH/OROPHARYNX - Without perioral cyanosis. NECK - Neck with FROM. No nuchal rigidity. LUNGS -clear to auscultation. CARDIAC - RRR. No murmur appreciated. EXTREMITIES - No clubbing or peripheral cyanosis. Skin as above. Left upper extremity well-perfused with normal left radial pulse. +5/5 strength noted in UE/LE bilaterally. NEUROLOGIC -sensory intact throughout the left upper extremity without deficit. PSYCH -alert, oriented and pleasant on exam Course Administered Medications Cyclobenzaprine HCl (Cyclobenzaprine Hcl 10 Mg Tab) 10 mg PO HS [facility] Stop: 04/09/25 20:59 Last Admin: 03/10/25 20:46 Dose: 10 mg Documented By: MED Docusate Sodium (Docusate Sodium 100 Mg Cap) 100 mg PO BID JADE Stop: 04/09/25 20:59 Last Admin: 03/10/25 20:46 Dose: 100 mg Documented By: MED Sodium Chloride (Nss) 1,000 mls @ 65 mls/hr IV .[id number] JADE Stop: 03/13/25 15:14 Last Admin: 03/10/25 15:21 Dose: 65 mls/hr Documented By: DEION Lidocaine (Lidocaine 5% 1 Patch) 3 patch TD HS JADE Stop: 04/09/25 19:44 Last Admin: 03/10/25 20:38 Dose: 3 patch Documented By: MED Nicotine (Nicotine 21 Mg/24 Hr Tdsy) 1 patch TD DAILY JADE Stop: 04/09/25 14:29 Last Admin: 03/10/25 15:20 Dose: 1 patch Documented By: DEION Oxcarbazepine (Oxcarbazepine 150 Mg Tablet) 300 mg PO BID JADE Stop: 04/09/25 20:59 Last Admin: 03/10/25 20:48 Dose: 300 mg Documented By: TARA Trazodone HCl (Trazodone Hcl 100 Mg Tab) 100 mg PO HS JADE Stop: 04/09/25 20:59 Last Admin: 03/10/25 20:45 Dose: 100 mg Documented By: MED Discontinued Medications Ceftriaxone Sodium (Rocephin) 2,000 mg in 50 mls @ 100 mls/hr IV NOW STA Stop: 03/10/25 12:38 Last Infusion: 03/10/25 12:55 Dose: Infused Documented By: Admin: 03/10/25 12:19 Dose: 100 mls/hr Documented By: DEION Vancomycin HCl 1,500 mg/ (Sodium Chloride) 530 mls @ 200 mls/hr IV NOW ONE Stop: 03/10/25 14:47 Last Infusion: 03/10/25 14:41 Dose: Infused Documented By: Admin: 03/10/25 13:19 Dose: 200 mls/hr Documented By: DEION Sodium Chloride (Nss) 1,000 mls @ 999 mls/hr IV .Q1H1M ONE Stop: 03/10/25 13:49 Last Infusion: 03/10/25 14:42 Dose: Infused Documented By: Admin: 03/10/25 13:19 Dose: 999 mls/hr Documented By: DEION Piperacillin Sod/Tazobactam Sod (Zosyn) 4.5 gm in 100 mls @ 200 mls/hr IV ONE ONE; Protocol Stop: 03/10/25 17:44 Last Infusion: 03/10/25 19:38 Dose: Infused Documented By: stockroom helper: 03/10/25 18:19 Dose: 200 mls/hr Documented By: LAINA Medical Decision Making Laboratory Data 03/10/25 11:40 03/10/25 11:40 Lab Results 03/10/25 03/10/25 Range/Units 11:40 12:07 WBC 8.05 (4.8-10.8) K/ul RBC 4.20 (4.20-5.40) M/uL Hgb 12.5 (12.0-16.0) g/dl Hct 37.5 (37.0-47.0) % MCV 89.3 (80.0-100.0) fL MCH 29.8 (25.0-34.0) pg MCHC 33.3 (32.0-36.0) g/dL RDW Std Deviation 46.0 (36.4-46.3) fL RDW Coeff of Ernestine 14.3 (11.5-14.5) % Plt Count 327 (130-400) K/uL MPV 9.1 L (9.4-12.4) fL Immature Gran % (Auto) 1.1 % Neut % (Auto) 55.7 % Lymph % (Auto) 27.6 % [place]oshone % (Auto) 12.3 % Eos % (Auto) 2.7 % Baso % (Auto) 0.6 % Neut # (Auto) 4.48 (1.40-6.50) K/uL Lymph # (Auto) 2.22 (1.20-3.40) K/uL Shoshone # (Auto) 0.99 H (0.11-0.59) K/uL Eos # (Auto) 0.22 (0.00-0.50) K/uL Baso # (Auto) 0.05 (0.00-0.20) K/uL Immature Gran # (Auto) 0.09 (0.01-0.20) K/uL Sodium 137 (136-145) mmol/L Potassium 4.4 (3.5-5.1) mmol/L Chloride 107 (98-107) mmol/L Carbon Dioxide 22 (21-32) mmol/L Anion Gap 8 (3-11) BUN 17 (6-23) mg/dl Creatinine 0.98 (0.6-1.2) mg/dl Est Cr Clr Drug Dosing 74.4 ml/min eGFR 76.71 BUN/Creatinine Ratio 17.3 (10-20) Glucose 97 (70-99(Fasting)) mg/dl Lactate 3.0 H* (0.4-2.0) mmol/L Calcium 9.2 (8.6-10.3) mg/dl Total Bilirubin 0.5 (0.2-1.0) mg/dl AST 22 (13-39) U/L ALT 22 (7-52) U/L Alkaline Phosphatase 88 (34-104) U/L C-Reactive Protein < 0.50 (0-0.5) mg/dl Total Protein 7.4 (6.0-8.3) gm/dl Albumin 4.4 (3.4-5.0) gm/dl Globulin 3.0 (2.5-4.0) gm/dl Albumin/Globulin Ratio 1.5 (0.9-2) Procalcitonin < 0.02 (0-0.5) ng/ml HCG, Qual Negative (Negative) Imaging Data Radiologist's Impression: Forearm X-Ray 03/10/25 12:18 XR forearm LT 2V CLINICAL HISTORY: L forearm and elbow region infections COMPARISON: None FINDINGS: No fracture or dislocation. No evidence of osteomyelitis. No radiopaque foreign body seen. IMPRESSION: No acute findings. ACT 112: Negative or not required by law. Electronically signed by: Kamlesh Juan M.D. 03/10/2025 1:28 PM Vascular Ultrasound 03/10/25 12:18 US extremity non-vascular ltd HISTORY: 34 years-old Female L biceps region abscess/infection acute painless soft tissue swelling within the left upper arm. IV drug abuser. COMPARISON: Ultrasound 02/28/2025 TECHNIQUE: Multiple real-time sonographic images of the left antecubital fossa tissues were obtained assessing grayscale appearance and color flow FINDINGS: There is improvement involving the subcutaneous edema compared to the prior. No fluid collection or foreign bodies identified by ultrasound. IMPRESSION: 1. Findings suggestive of resolving cellulitis compared to the prior ultrasound. 2. No foreign bodies or abscess identified by ultrasound. ACT 112: Negative or not required by law. The above report was generated using voice recognition software. It may contain grammatical, syntax or spelling errors. Electronically signed by: Amrit Mathews M.D. 03/10/2025 1:01 PM Elbow X-Ray 03/10/25 12:19 XR elbow LT min 3V routine CLINICAL HISTORY: L forearm and elbow region infections COMPARISON: None FINDINGS: No fracture or dislocation. No evidence of osteomyelitis. No radiopaque foreign body seen. IMPRESSION: No acute findings. ACT 112: Negative or not required by law. Electronically signed by: Kamlesh Juan M.D. 03/10/2025 1:29 PM MDM Narrative Patient was seen and evaluated as above in room C10. Review was performed of triage nursing notes and vital signs. I did review pertinent previous visits and patient history. After obtaining a thorough history and physical examination the above work up was performed. Patient presents to us today with ongoing edema and erythema to the left upper extremity. She notes that the area of erythema is overall smaller however there persists to be an edematous region which is rather large on exam and I would estimate to be approximately 8 cm in diameter and raised. Smaller nodular type region to the left ventral forearm. Options of care were discussed with the patient. IV access was established. Labs were drawn. No leukocytosis or concerning anemia. No emergent metabolic disturbance. Lactate is elevated but will note that procalcitonin within normal range. We will redraw the lactate however fluids are added. hCG negative. X- rays were obtained of the left forearm and left elbow which I did review and there is no radiopaque foreign body. Ultrasound does not show any obvious abscess although will note the appearance was suspicious for possible abscess on physical exam. Noting the patient's ongoing symptoms and physical exam findings of left upper extremity despite antibiotics I do believe that further evaluation and management in the inpatient setting is warranted. I discussed the case with the general surgery service, hospitalist service--please refer to further documentation regarding her stay. GCS: 15 In the evaluation and treatment of this patient the following differential diagnoses were entertained: Cellulitis, abscess, retained foreign body, necrotizing fasciitis, DVT, among others Impression & Plan Cellulitis of left upper extremity Discharge Plan Visit Data Chief Complaint: Infection Stated Complaint: ARM INFECTION, OUT OF ANTIBIOTICS ED Provider: Estuardo Ellis ED Midlevel Provider: Miguel Sanderson Discharge Problem: Cellulitis of left upper extremity Patient Disposition: Admitted As Inpatient Condition: Good Discharge Instructions Interventions: ED Discharge Assessment Last Done: 03/10/25 16:50
[2025-03-10 12:08] LABS: Basophils # (auto) 0.05 K/uL (0.00-0.20); Basophils % (auto) 0.6 %; Eosinophils # (auto) 0.22 K/uL (0.00-0.50); Eosinophils % (auto) 2.7 %; Hematocrit (blood only) 37.5 % (37.0-47.0); Hemoglobin 12.5 g/dl (12.0-16.0); Immature Granulocytes # (auto) 0.09 K/uL (0.01-0.20); Immature Granulocytes % (auto) 1.1 %; Lymphocytes # (auto) 2.22 K/uL (1.20-3.40); Lymphocytes % (auto) 27.6 %; Mean Corpuscular Hemoglobin 29.8 pg (25.0-34.0); Mean Corpuscular Hgb Conc 33.3 g/dL (32.0-36.0); Mean Corpuscular Volume 89.3 fL (80.0-100.0); Mean Platelet Volume 9.1 fL (9.4-12.4); Monocytes # (auto) 0.99 K/uL (0.11-0.59); Monocytes % (auto) 12.3 %; Neutrophils # (auto) 4.48 K/uL (1.40-6.50); Neutrophils % (auto) 55.7 %; Platelet Count 327 K/uL (130-400); RDW Coefficient of Variation 14.3 % (11.5-14.5); White Blood Count 8.05 K/ul (4.8-10.8)
[2025-03-10] MEDS ORDERED: VANCOMYCIN CONSULT ACTIVE PRN ×2 (12:09→16:56)
[2025-03-10] MEDS: cefTRIAXone SODIUM 2,000 MG/50 ML BAG IV STA (12:19)
[2025-03-10 12:27] LABS: Alanine Aminotransferase 22 U/L (7-52); Albumin Globulin Ratio 1.5 (0.9-2); Albumin Level 4.4 gm/dl (3.4-5.0); Alkaline Phosphatase 88 U/L (34-104); Anion Gap 8 (3-11); Aspartate Aminotransferase 22 U/L (13-39); BUN Creatinine Ratio 17.3 (10-20); Bilirubin,Total 0.5 mg/dl (0.2-1.0); Blood Urea Nitrogen 17 mg/dl (6-23); C Reactive Protein < 0.50 mg/dl (0-0.5); Calcium 9.2 mg/dl (8.6-10.3); Carbon Dioxide 22 mmol/L (21-32); Chloride 107 mmol/L (98-107); Creatinine Clr Calc Pharmacy 74.4 ml/min; Glucose 97 mg/dl (70-99(Fasting)); Potassium 4.4 mmol/L (3.5-5.1); Sodium 137 mmol/L (136-145); Total Protein 7.4 gm/dl (6.0-8.3)
[2025-03-10 12:46] LABS: Pregnancy Test, Serum Negative (Negative)
--- NOTE | 2025-03-10 12:54 | History & Physical Report ---
Date of Service March 10, 2025 Assessment & Plan (1) Cellulitis of left upper extremity: (2) Lactic acidosis: (3) Bipolar disorder: (4) Borderline personality disorder: Plan Patient is a 34-year-old female with past medical history significant for prediabetes, asthma, urinary incontinence, cervical disc disorder, lumbar DDD, PTSD, methamphetamine abuse, cannabis use, borderline personality disorder, major depressive disorder, bipolar disorder and other problems listed below who presented to the ED for evaluation of an infection in her LUE. Previously seen in ED on 02/28/25 for same complaint s/p IV methamphetamine injection in LUE. Started on Bactrim/Keflex course w/ some improvement but now w/ erythematous, fluctuant and tender area superior to her L antecubital fossa. #LUE cellulitis (pic provided in exam section) #IVF drug use, methamphetamine abuse #Lactic acidosis No fevers No leukocytosis today; WBC was elevated at 14.5k on 02/28 Initial lactate 3 --> s/p 1L NSS in ED Follow repeat lactate; may need additional IVF Does not appear septic, VSS except for transient tachycardia (now resolved) Procal negative S/p IV Rocephin and vanc in ED Continue empiric coverage w/ IV Zosyn and vanc Follow blood cxs Gen surg consulted for ? underlying abscess given fluctuant appearance on exam LUE nonvascular US: findings suggestive of resolving cellulitis compared to the prior ultrasound Discussed case w/ gen surg Radha BECKER -Hold off on I&D for now given no abscess appearance on above US -Will continue to monitor response to ABX -Keep NPO at MN for possible drainage 2morrow if no improvement Will check LUE venous doppler US to r/o thrombophlebitis If she develops any drainage from infected site, will check wound cx (no active drainage reported) Check urine drug screen #MDD, KAVON #Borderline personality disorder #Bipolar disorder Continue Wellbutrin, Vraylar, Trileptal, trazodone Continue PRN hydroxyzine #HLD Continue statin #Urinary incontinence #OAB Continue solifenacin, mirabegron #Tobacco use disorder Continue daily nicotine patch #Chronic back pain Continue lidocaine patches --> 3 on back/day; upper/mid/lower back regions Continue cyclobenzaprine #Prediabetes Hgb A1c 5.8% 8mo ago Check updated Hgb A1c in AM DVT Prophylaxis: SCDs/TEDs for now PCP: Josh Abernathy MD Disposition: Admit to med/tele Patient seen in collaboration with Dr. Deluca. Please see addendum. I spent a total of 58 minutes coordinating, documenting, and providing care for this patient excluding time spent in the performance of separately billed services or time spent by another provider/QHP. This included personally reviewing all current laboratories and imaging studies, medical reconciliation, outpatient chart review and discussion with specialists. This chart was completed in part utilizing Speech Voice Recognition Software. Grammatical errors, random word insertions, pronoun errors, and incomplete sentences are an occasional consequence of this system due to software limitations, ambient noise, and hardware issues. Any formal questions or concerns about the content, text, or information contained within the body of this dictation should be directly addressed to the provider for clarification. History of Present Illness Chief Complaint: Left arm infection Primary Care Provider: Josh Aebrnathy MD Patient is a 34-year-old female with past medical history significant for prediabetes, asthma, urinary incontinence, cervical disc disorder, lumbar DDD, PTSD, methamphetamine abuse, cannabis use, borderline personality disorder, major depressive disorder, bipolar disorder and other problems listed below who presented to the ED for evaluation of an infection in her LUE. History obtained from the patient, discussion with ED provider and associated chart review. Reports developing erythema and tenderness just superior to her left antecubital fossa approximately 10 days ago after injecting herself with methamphetamine. Patient states she "missed" the correct area when injecting the methamphetamine. She was seen and evaluated in [place] ED on 02/28/25 for this and started on oral Bactrim plus oral Keflex, which she mentions compliance with. However, she is still experiencing erythema and tenderness to palpation above her left antecubital fossa. And now, this area appears fluctuant. She attempted to drain this area 2 days ago using a diabetic needle but there was no drainage. She has not noticed any spontaneous drainage from this area since it first developed. No reported fevers since this all began, however, she does endorse experiencing some body aches and chills about 8 days ago. She completed the Bactrim course in its entirety however she did not yet complete the Keflex course as she still has 1 pill remaining. She was prescribed a 7-day course of each. Initially there was erythematous streaking both superiorly and inferiorly in proximity to the left elbow approximately 3-5 days after the initial patch of erythema developed above the antecubital fossa, however, this has resolved. She denies any methamphetamine use since the left upper extremity erythema developed. Denies any chest pain, SOB or abdominal pain. Did have an isolated bout of diarrhea on 02/28/25 but no other reported incidences of such. No alcohol use. Occasional marijuana use. Allergies Allergy/AdvReac Type Severity Reaction Status Date / Time cat dander Allergy Intermediate HIVES, Verified 08/21/23 10:26 CONGESTION dog dander Allergy Intermediate HIVES, Verified 08/21/23 10: CONGESTION grass pollen-perennial rye, Allergy Intermediate HIVES,CONGE Verified 08/21/23 10: standar STION house dust Allergy Intermediate CONGESTION Verified 08/21/23 10:26 Home Medications Medication Instructions Recorded Confirmed Type albuterol sulfate 90 mcg/actuation 1 - 2 puff inhalation Q4H PRN SOB 07/04/21 03/10/25 History aerosol inhaler (ProAir HFA) or Wheezing acetaminophen 500 mg tablet 500 mg PO HS 05/06/23 03/10/25 History (Tylenol Extra Strength) docusate sodium 100 mg capsule 100 mg PO BID 05/18/23 03/10/25 History (Stool Softener) hydroxyzine HCl 25 mg tablet 50 mg PO Q4H PRN Anxiety 05/18/23 03/10/25 History lidocaine 5 % topical patch 3 patch topical DAILY #30 ea 05/18/23 03/10/25 Rx bupropion HCl 100 mg tablet,12 hr 100 mg PO QAM 03/10/25 03/10/25 History sustained-release cariprazine 3 mg capsule (Vraylar) 3 mg PO QAM 03/10/25 03/10/25 History cholecalciferol (vitamin D3) 50 50 mcg PO QAM 03/10/25 03/10/25 History mcg (2,000 unit) capsule (Vitamin D3) cyclobenzaprine 10 mg tablet 10 mg PO HS 03/10/25 03/10/25 History gabapentin 100 mg capsule 100 mg PO QAM 03/10/25 03/10/25 History ibuprofen 600 mg tablet 600 mg PO HS 03/10/25 03/10/25 History loratadine 10 mg tablet 10 mg PO QAM 03/10/25 03/10/25 History mirabegron 50 mg tablet,extended 50 mg PO QAM 03/10/25 03/10/25 History release 24 hr (Myrbetriq) nicotine 21 mg/24 hr daily 1 patch topical DAILY 03/10/25 03/10/25 History transdermal patch oxcarbazepine 300 mg tablet 300 mg PO BID 03/10/25 03/10/25 History rosuvastatin 5 mg tablet (Crestor) 5 mg PO QAM 03/10/25 03/10/25 History solifenacin 5 mg tablet 5 mg PO QAM 03/10/25 03/10/25 History trazodone 100 mg tablet 100 mg PO HS 03/10/25 03/10/25 History Past Med/Surg History Problem List Bipolar disorder Lactic acidosis Cellulitis of left upper extremity Cellulitis (Acute) COVID-19 (Acute) Thoracic back pain Sciatic pain Lower back pain Nocturnal enuresis Stress incontinence Urge incontinence (Acute) Urinary incontinence (Chronic) Diabetes mellitus Hyperlipemia Vitamin D deficiency (Chronic) Unequal leg length (acquired) (Acute) PTSD (post-traumatic stress disorder) (Acute) Hypertrophy of nasal turbinates (Acute) High risk HPV infection (Acute) Genital herpes simplex (Acute) External hemorrhoids (Acute) Esophageal reflux (Acute) Endometriosis (Acute 04/12/13) Dysplasia of cervix, low grade (SHILPA 1) (Acute) Deviated nasal septum (Acute) Depression with anxiety (Chronic) Chronic sinusitis (Acute) Cannabis use, unspecified, uncomplicated (Acute) Atypical squamous cells of undetermined significance (ASCUS) on Papanicolaou smear of cervix (Acute) Asthma (Acute 04/12/13) Health care maintenance Amphetamine abuse, episodic (Acute) Smoking (Acute) Bipolar depression (Acute) Borderline personality disorder Medical History Anxiety Neck pain Controlled type 2 diabetes mellitus Lab test negative for COVID-19 virus Anxiety Superficial phlebitis Elevated WBC count H/O diabetes mellitus Otitis externa of right ear Ear pain Gestational diabetes Situational stress Substance abuse Abnormal weight loss Anorexia Dysmenorrhea History of female sterilization Memory loss Pharyngitis Pneumonia (04/26/13) Secondary amenorrhea Weakness No pertinent family history Acute pyelonephritis History of sterilization procedure Anxiety Surgical History S/P tubal ligation S/P tonsillectomy History of salpingo-oophorectomy History of laparoscopy S/P section S/P LEEP of cervix H/O adenoidectomy History of tubal ligation (04/12/13) S/P removal of left ovary (04/12/13) Family History Grandmother (Paternal) Breast cancer Daughter Asthma Grandfather (Maternal) Colorectal cancer Mother Diabetes Stomach cancer Grandfather (Paternal) Lung cancer Uncle Lung cancer Other No pertinent family history Denies family history of Hypertension Social History Smoking Status: Current every day smoker Tobacco Type: E-cigarettes / Vaping Cigarettes Per Day: 1 pack; Second Hand Exposure: Yes; Do You Dip or Chew Tobacco: No; Hx Alcohol Use: Yes Hx Substance Use: No (Medial Marijuana card ) Preferred Language: Kazakh Communication Ability: Effective Visual Impairment: No Limitations Hearing Ability: Normal Multi Share Program Coordinator Required: No Beliefs That Will Affect Care: None Current Living Situation: Significant Other Feels Safe at Home: Yes Gender Identity: Female Assistive Devices: Cane and Nebulizer Review of Systems 2 Review of Systems: At least ten systems reviewed and negative, except as noted in the HPI. Physical Exam 2 Physical Exam: General: NAD, sitting up in bed, A&Ox4, conversing appropriately HEENT: Normocephalic, atraumatic, oropharynx normal Respiratory: Normal respiratory effort, lungs clear to auscultation bilaterally Cardiovascular: Regular rate, rhythm, normal peripheral pulses, no BLE edema Abdomen/GI: Normal bowel sounds, soft, nontender to palpation in all quadrants Extremities/MSK: No cyanosis or clubbing, extremities motor strength intact, moves all extremities Neurologic: No overt focal deficits, CN's II-XI not formally tested but appear grossly intact bilaterally Skin: Area of erythema superior to L antecubital fossa - warm to touch, TTP, fluctuant (pictured below); no active drainage Results & Data Results & Data Vital Signs (Past 12 Hours) Vital Signs Temp Pulse Resp BP Pulse Ox O2 Del Method 03/10/25 12:11 85 03/10/25 11:59 94 H 16 98 Room Air 03/10/25 11:24 36.7 C 100 H 22 107/72 96 Room Air Laboratory Results Short CBC 03/10/25 Range/Units 11:40 WBC 8.05 (4.8-10.8) K/ul Hgb 12.5 (12.0-16.0) g/dl Hct 37.5 (37.0-47.0) % Plt Count 327 (130-400) K/uL BMP 03/10/25 11:40 Sodium 137 Potassium 4.4 Chloride 107 Carbon Dioxide 22 BUN 17 Creatinine 0.98 Glucose 97 Calcium 9.2 Liver Function 03/10/25 Range/Units 11:40 Total Bilirubin 0.5 (0.2-1.0) mg/dl AST 22 (13-39) U/L ALT 22 (7-52) U/L Alkaline Phosphatase 88 (34-104) U/L Albumin 4.4 (3.4-5.0) gm/dl Diagnostic Findings Forearm X-Ray 03/10/25 12:18 XR forearm LT 2V CLINICAL HISTORY: L forearm and elbow region infections COMPARISON: None FINDINGS: No fracture or dislocation. No evidence of osteomyelitis. No radiopaque foreign body seen. IMPRESSION: No acute findings. ACT 112: Negative or not required by law. Electronically signed by: Kamlesh Juan M.D. 03/10/2025 1:28 PM Vascular Ultrasound 03/10/25 12:18 US extremity non-vascular ltd HISTORY: 34 years-old Female L biceps region abscess/infection acute painless soft tissue swelling within the left upper arm. IV drug abuser. COMPARISON: Ultrasound 02/28/2025 TECHNIQUE: Multiple real-time sonographic images of the left antecubital fossa tissues were obtained assessing grayscale appearance and color flow FINDINGS: There is improvement involving the subcutaneous edema compared to the prior. No fluid collection or foreign bodies identified by ultrasound. IMPRESSION: 1. Findings suggestive of resolving cellulitis compared to the prior ultrasound. 2. No foreign bodies or abscess identified by ultrasound. ACT 112: Negative or not required by law. The above report was generated using voice recognition software. It may contain grammatical, syntax or spelling errors. Electronically signed by: Amrit Mathews M.D. 03/10/2025 1:01 PM Elbow X-Ray 03/10/25 12:19 XR elbow LT min 3V routine CLINICAL HISTORY: L forearm and elbow region infections COMPARISON: None FINDINGS: No fracture or dislocation. No evidence of osteomyelitis. No radiopaque foreign body seen. IMPRESSION: No acute findings. ACT 112: Negative or not required by law. Electronically signed by: Kamlesh Juan M.D. 03/10/2025 1:29 PM Medications Administered Discontinued Medications Ceftriaxone Sodium (Rocephin) 2,000 mg in 50 mls @ 100 mls/hr IV NOW STA Stop: 03/10/25 12:38 Last Admin: 03/10/25 12:19 Dose: 100 mls/hr Documented By: BLD Code Status & VTE Plan Code Status FULL CODE Supervising Physician Co-Signing Physician Notes 34-year-old female with past medical history significant for prediabetes, asthma, urinary incontinence, cervical disc disorder, lumbar DDD, PTSD, methamphetamine abuse, cannabis use, borderline personality disorder, major depressive disorder, bipolar disorder presents to the ED for evaluation of an infection in her LUE. Patient reports feeling bad about 12 days ago. Patient reports she has been off of meth for several years, she states she relapsed into meth due to feeling depressed after recent discussion (w/ her provider) about her degenerative disc diseases being permanent. following the meth injection, she started developing erythema/swelling/pain in the medial and distal left forearm from the next day. She presented to the ED, was discharged on 10 days of Bactrim and Keflex, there was some improvement in her erythema/pain but mostly it persisted, hence presented to ED. She almost is closer to her 10 day atb Rx at the time of presentation. She denies fever, chills, nausea, vomiting. Labs and imagings reviewed. CBC WNL. Renal function fairly WNL lactate elevated at 3.0. LFT normal. Procalcitonin normal. Beta-hCG negative. Right forearm and elbow x-ray with no acute finding. Limited right extremity ultrasound does not reveal abscess or foreign body. Findings suggestive of resolving cellulitis. Will get venous Doppler RUE to rule out thrombophlebitis/DVT. Will start her on Vanco and Zosyn, follow blood culture, general surgery consulted ? query need of I&D given fluctuant infection on exam. s/p 1 L nss in ED, gentle NSS at 65 ml/hr x 1 bag, repeat lactate until donwtrending or nl. add probiotic. get LUE venous doppler. On exam: Patient on room air, NAD, erythema/tenderness/fluctuance area immediately superior to left antecubital fossa, no streaking erythema noted. Warmth noted. Rest of the examinations as above. Total time spent independently: 25 min I have seen and examined the patient and have discussed the case with the provider above. I agree with the assessment and plan as stated. (3) Bipolar disorder Active/Remission status: remission status unspecified Qualified Code(s): F 31.9 - Bipolar disorder, unspecified
--- NOTE | 2025-03-10 13:02 | Ultrasound Report ---
US extremity non-vascular ltd HISTORY: 34 years-old Female L biceps region abscess/infection acute painless soft tissue swelling w ithin the left upper arm. IV drug abuser. COMPARISON: Ultrasound 02/28/2025 TECHNIQUE: Multiple real-time sonographic images of the left antecubital fossa tissues were obtained assessing grayscale appearance and color flow FINDINGS: There is improvement involving the subcutaneous edema compared to the prior. No fluid collection or f oreign bodies identified by ultrasound. IMPRESSION: 1. Findings suggestive of resolving cellulitis compared to the prior ultrasound. 2. No foreign bodies or abscess identified by ultrasound. ACT 112: Negative or not required by law. The above report was generated using voice recognition software. It may contain grammatical, syntax o r spelling errors. Electronically signed by: Amrit Mathews M.D. 03/10/2025 1:01 PM
[2025-03-10] MEDS: SODIUM CHLORIDE 0.9% 1,000 ML IV ONE (13:19)
[2025-03-10] MEDS: VANCOMYCIN HCL 1,500 MG in SODIUM CHLORIDE 0.9% 500 ML IV ONE (13:19)
--- NOTE | 2025-03-10 13:23 | Surgery Consultation ---
Date of Consultation March 10, 2025 Assessment & Plan (1) Cellulitis of left upper extremity: This is a 34y F with a PMH of meth abuse, depression/anxiety, bipolar, borderline personality disorder, DM, HLD who presents to the [facility] ED on 03/10/25 with concern for infection of her L arm region. Patient had injected meth into her arm on 02/27 and noticed the wound and redness develop the following day. She did come into the ER on 02/28 where a US showed no abscess and she was sent home on a course of antibiotics. The patient reports taking the antibiotics and is out of the bactrim and only has one pill of the keflex. She states that the redness has improved which initially extended both superiorly and inferiorly, but she was worried that the lump and some redness remained and she was running out of antibiotics so she came in for further evaluation. In the ER she did undergo a repeat US that showed findings suggestive of resolving cellulitis compared to the prior ultrasound. No foreign bodies or abscess identified by ultrasound. The patient reports trying to self drain the wound herself a couple days ago but only blood came out. She denies any fevers/chills, CP/SOB, nausea/vomiting, abdominal pain. Reports 02/27 was last meth use. In the ER labs show WBC 8, WBC 12.5, Lactate 3. Vitals are stable. On exam in the left antecubital region patient has a large reddened area consistent with location of meth injection. Its surrounding has + induration and centrally there is fluctuance. There is no drainage. Patient has showed me pictures of how it looked over the last week and it does appear to be improving regarding the extent of the erythema. Patient symptomatically feels well but concerned that it has not fully healed. The wound appears to have some fluctuance but interestingly there is no fluid collection noted on CT scan. For now agree with admission to the hospital for IV abx. We will evaluate the area of concern again tomorrow. May eat today, but keep NPO at midnight pending any procedures tomorrow. We will follow. Appreciate medicine assistance. History of Present Illness History of Present Illness This is a 34y F with a PMH of meth abuse, depression/anxiety, bipolar, borderline personality disorder, DM, HLD who presents to the [facility] ED on 03/10/25 with concern for infection of her L arm region. Patient had injected meth into her arm on 02/27 and noticed the wound and redness develop the following day. She did come into the ER on 02/28 where a US showed no abscess and she was sent home on a course of antibiotics. The patient reports taking the antibiotics and is out of the bactrim and only has one pill of the keflex. She states that the redness has improved which initially extended both superiorly and inferiorly, but she was worried that the lump and some redness remained and she was running out of antibiotics so she came in for further evaluation. In the ER she did undergo a repeat US that showed findings suggestive of resolving cellulitis compared to the prior ultrasound. No foreign bodies or abscess identified by ultrasound. The patient reports trying to self drain the wound herself a couple days ago but only blood came out. She denies any fevers/chills, CP/SOB, nausea/vomiting, abdominal pain. Reports 02/27 was last meth use. Allergies Allergy/AdvReac Type Severity Reaction Status Date / Time cat dander Allergy Intermediate HIVES, Verified 08/21/23 10:26 CONGESTION dog dander Allergy Intermediate HIVES, Verified 08/21/23 10:26 CONGESTION grass pollen-perennial rye, Allergy Intermediate HIVES,CONGE Verified 08/21/23 10:26 standar STION house dust Allergy Intermediate CONGESTION Verified 08/21/23 10:26 Home Medications Medication Instructions Recorded Confirmed Type albuterol sulfate 90 mcg/actuation 1 - 2 puff inhalation Q4H PRN SOB 07/04/21 03/10/25 History aerosol inhaler (ProAir HFA) or Wheezing acetaminophen 500 mg tablet 500 mg PO HS 05/06/23 03/10/25 History (Tylenol Extra Strength) docusate sodium 100 mg capsule 100 mg PO BID 05/18/23 03/10/25 History (Stool Softener) hydroxyzine HCl 25 mg tablet 50 mg PO Q4H PRN Anxiety 05/18/23 03/10/25 History lidocaine 5 % topical patch 3 patch topical DAILY #30 ea 05/18/23 03/10/25 Rx bupropion HCl 100 mg tablet,12 hr 100 mg PO QAM 03/10/25 03/10/25 History sustained-release cariprazine 3 mg capsule (Vraylar) 3 mg PO QAM 03/10/25 03/10/25 History cholecalciferol (vitamin D3) 50 50 mcg PO QAM 03/10/25 03/10/25 History mcg (2,000 unit) capsule (Vitamin D3) cyclobenzaprine 10 mg tablet 10 mg PO HS 03/10/25 03/10/25 History gabapentin 100 mg capsule 100 mg PO QAM 03/10/25 03/10/25 History ibuprofen 600 mg tablet 600 mg PO HS 03/10/25 03/10/25 History loratadine 10 mg tablet 10 mg PO QAM 03/10/25 03/10/25 History mirabegron 50 mg tablet,extended 50 mg PO QAM 03/10/25 03/10/25 History release 24 hr (Myrbetriq) nicotine 21 mg/24 hr daily 1 patch topical DAILY 03/10/25 03/10/25 History transdermal patch oxcarbazepine 300 mg tablet 300 mg PO BID 03/10/25 03/10/25 History rosuvastatin 5 mg tablet (Crestor) 5 mg PO QAM 03/10/25 03/10/25 History solifenacin 5 mg tablet 5 mg PO QAM 03/10/25 03/10/25 History trazodone 100 mg tablet 100 mg PO HS 03/10/25 03/10/25 History Patient History Medical History Anxiety Neck pain Controlled type 2 diabetes mellitus Lab test negative for COVID-19 virus Anxiety Superficial phlebitis Elevated WBC count H/O diabetes mellitus Otitis externa of right ear Ear pain Gestational diabetes Situational stress Substance abuse Abnormal weight loss Anorexia Dysmenorrhea History of female sterilization Memory loss Pharyngitis Pneumonia (04/26/13) Secondary amenorrhea Weakness No pertinent family history Acute pyelonephritis History of sterilization procedure Anxiety Surgical History S/P tubal ligation S/P tonsillectomy History of salpingo-oophorectomy History of laparoscopy S/P section S/P LEEP of cervix H/O adenoidectomy History of tubal ligation (04/12/13) S/P removal of left ovary (04/12/13) Family History Grandmother (Paternal) Breast cancer Daughter Asthma Grandfather (Maternal) Colorectal cancer Mother Diabetes Stomach cancer Grandfather (Paternal) Lung cancer Uncle Lung cancer Other No pertinent family history Denies family history of Hypertension Social History Smoking Status: Current every day smoker Tobacco Type: E-cigarettes / Vaping Cigarettes Per Day: 1 pack; Second Hand Exposure: Yes; Do You Dip or Chew Tobacco: No; Hx Alcohol Use: Yes Hx Substance Use: Yes Last Used Substance: Hours (ago) Last Used Substance Other:: reports meth use this morning Substance Use Type Other:: medical marijuana Preferred Language: Turkmen Communication Ability: Effective Visual Impairment: No Limitations Hearing Ability: Normal Mirror Installer Required: No Beliefs That Will Affect Care: None Current Living Situation: Spouse Feels Safe at Home: Yes Gender Identity: Female Assistive Devices: Cane Review of Systems Constitutional: no fever and no chills Respiratory: no dyspnea Cardiovascular: no chest pain Gastrointestinal: no abdominal pain and no change in bowel habits Musculoskeletal: + tender reddened wound in L arm; no rita inage Physical Exam Physical Exam: awake/alert, no distress Respiratory: normal respiratory effort Skin: in the left antecubital region patient has a large reddened area consistent with location of meth injection. Its surrounding has + induration and centrally there is fluctuance. no drainage Results & Data Vital Signs (Past 12 Hours) Vital Signs Temp Pulse Resp BP Pulse Ox O2 Del Method 03/10/25 12:11 85 03/10/25 11:59 94 H 16 98 Room Air 03/10/25 11:24 98.1 F 100 H 22 107/72 96 Room Air Diagnostic Findings US extremity non-vascular ltd HISTORY: 34 years-old Female L biceps region abscess/infection acute painless soft tissue swelling within the left upper arm. IV drug abuser. COMPARISON: Ultrasound 02/28/2025 TECHNIQUE: Multiple real-time sonographic images of the left antecubital fossa tissues were obtained assessing grayscale appearance and color flow FINDINGS: There is improvement involving the subcutaneous edema compared to the prior. No fluid collection or foreign bodies identified by ultrasound. IMPRESSION: 1. Findings suggestive of resolving cellulitis compared to the prior ultrasound. 2. No foreign bodies or abscess identified by ultrasound. ACT 112: Negative or not required by law. The above report was generated using voice recognition software. It may contain grammatical, syntax or spelling errors Electronically signed by: Amrit Mathews M.D. 03/10/2025 1:01 PM PG Care Time/CCT Total # of Minutes Spent Total Time Spent with Patient: Total time spent is greater than 50% in coordination of care (as documented) at patient's floor/unit and/or counseling patient: Coding Level of Care Code 96204 OFFICE CONSULT LVL Diagnoses Cellulitis of left upper extremity L03.114
--- NOTE | 2025-03-10 13:30 | XRay Report ---
XR forearm LT 2V CLINICAL HISTORY: L forearm and elbow region infections COMPARISON: None FINDINGS: No fracture or dislocation. No evidence of osteomyelitis. No radiopaque foreign body seen. IMPRESSION: No acute findings. ACT 112: Negative or not required by law. Electronically signed by: Kamlesh Juan M.D. 03/10/2025 1:28 PM
--- NOTE | 2025-03-10 13:31 | XRay Report ---
XR elbow LT min 3V routine CLINICAL HISTORY: L forearm and elbow region infections COMPARISON: None FINDINGS: No fracture or dislocation. No evidence of osteomyelitis. No radiopaque foreign body seen. IMPRESSION: No acute findings. ACT 112: Negative or not required by law. Electronically signed by: Kamlesh Juan M.D. 03/10/2025 1:29 PM
[2025-03-10] MEDS: NICOTINE 21 MG/24 HR TDSY TD SCH (15:20)
[2025-03-10] MEDS: SODIUM CHLORIDE 0.9% 1,000 ML IV SCH (15:21)
--- NOTE | 2025-03-10 16:03 | Ultrasound Report ---
ULTRASOUND LEFT UPPER EXTREMITY VENOUS CLINICAL HISTORY: Acute pain of the left upper extremity. COMPARISON STUDY: Ultrasound of same day and also 02/28/2025. TECHNIQUE: Real-time, grayscale, and color Doppler sonography of the deep veins of the left upper ext remity is performed. Compression and augmentation were utilized. FINDINGS: There is no sonographic evidence of deep venous thrombosis identified in the left upper ext remity. The left internal jugular, axillary, and brachial veins are patent and normally compressible. Normal venous waveforms and augmentation are seen within the left subclavian vein. The cephalic and basilic veins are clear. The visualized radial and ulnar veins are patent. Subcutaneous edema within the antecubital fossa redemonstrated. IMPRESSION: 1. No sonographic evidence of deep venous thrombosis identified in the left upper extremity. 2. Probable cellulitis of the antecubital fossa. ACT 112: Negative or not required by law. Electronically signed by: Amrit Mathews M.D. 03/10/2025 4:02 PM
[2025-03-10] MEDS ORDERED: ONDANSETRON INJ 2 MG/ML 2 ML VIAL IV PRN (16:56)
[2025-03-10] MEDS ORDERED: MAGNESIUM HYDROXIDE SUSP 30 ML UDC PO PRN (16:56)
[2025-03-10] MEDS ORDERED: POLYETHYLENE (MIRALAX) 17 GM PACK PO PRN (16:56)
[2025-03-10] MEDS: PIPERACILLIN/TAZOBACTAM 4.5 GM/100 ML BAG IV ONE (18:19)
[2025-03-10 19:15] LABS: Amphetamines+Metham, Urine Pos (Neg); Barbiturates, Urine Neg (Neg); Benzodiazepine, Urine Neg (Neg); Cocaine, Urine Neg (Neg); Fentanyl, Urine Neg (Neg); MDMA (Ecstacy), Urine Pos (Neg); Marijuana, Urine Pos (Neg); Methadone, Urine Neg (Neg); Opiate, Urine Neg (Neg); Phencyclidine, Urine Neg (Neg)
[2025-03-10] MEDS: LIDOCAINE 5% 1 PATCH TD SCH (20:38)
[2025-03-10] MEDS: traZODone HCL 100 MG TAB PO SCH (20:45)
[2025-03-10] MEDS: CYCLOBENZAPRINE HCL 10 MG TAB PO SCH (20:46)
[2025-03-10] MEDS: DOCUSATE SODIUM 100 MG CAP PO SCH (20:46)
[2025-03-10] MEDS: OXcarbazepine 150 MG TABLET PO SCH (20:48)
[2025-03-10] MEDS: PIPERACILLIN/TAZOBACTAM 4.5 GM/100 ML BAG IV SCH (22:43)
[2025-03-11] MEDS: VANCOMYCIN 750 MG in SODIUM CHLORIDE 0.9% 250 ML IV SCH ×2 (03:16→09:27)
[2025-03-11 07:31] LABS: Basophils # (auto) 0.04 K/uL (0.00-0.20); Basophils % (auto) 0.6 %; Eosinophils # (auto) 0.31 K/uL (0.00-0.50); Eosinophils % (auto) 4.7 %; Hematocrit (blood only) 31.6 % (37.0-47.0); Hemoglobin 10.5 g/dl (12.0-16.0); Immature Granulocytes # (auto) 0.07 K/uL (0.01-0.20); Immature Granulocytes % (auto) 1.1 %; Lymphocytes # (auto) 2.36 K/uL (1.20-3.40); Lymphocytes % (auto) 35.5 %; Mean Corpuscular Hemoglobin 30.3 pg (25.0-34.0); Mean Corpuscular Hgb Conc 33.2 g/dL (32.0-36.0); Mean Corpuscular Volume 91.1 fL (80.0-100.0); Mean Platelet Volume 9.2 fL (9.4-12.4); Monocytes # (auto) 0.58 K/uL (0.11-0.59); Monocytes % (auto) 8.7 %; Neutrophils # (auto) 3.28 K/uL (1.40-6.50); Neutrophils % (auto) 49.4 %; Platelet Count 276 K/uL (130-400); RDW Coefficient of Variation 14.1 % (11.5-14.5); Red Blood Count 3.47 M/uL (4.20-5.40); White Blood Count 6.64 K/ul (4.8-10.8)
[2025-03-11 07:55] LABS: Albumin Globulin Ratio 1.5 (0.9-2); Albumin Level 3.4 gm/dl (3.4-5.0); BUN Creatinine Ratio 16.2 (10-20); Bilirubin,Total 0.5 mg/dl (0.2-1.0); Calcium 7.7 mg/dl (8.6-10.3); Creatinine Clr Calc Pharmacy 102.1 ml/min; Globulin 2.2 gm/dl (2.5-4.0); Phosphorus 3.3 mg/dl (2.5-4.9); Total Protein 5.6 gm/dl (6.0-8.3)
[2025-03-11] MEDS ORDERED: LIDOCAINE 5% 1 PATCH TD SCH (09:00)
[2025-03-11] MEDS: CHOLECALCIFEROL 25 MCG (1000 UNITS) TAB PO SCH (09:07)
[2025-03-11] MEDS: buPROPion SR 100 MG TABCR PO SCH (09:07)
[2025-03-11] MEDS: CARIPRAZINE HCL 3 MG CAP PO SCH (09:07)
[2025-03-11] MEDS: VIBEGRON 75 MG TAB PO SCH (09:08)
[2025-03-11] MEDS: LORATADINE 10 MG TAB PO SCH (09:08)
[2025-03-11] MEDS: OXYBUTYNIN CHLORIDE XL 5 MG TABCR PO SCH (09:08)
[2025-03-11] MEDS: GABAPENTIN 100 MG CAP PO SCH (09:08)
[2025-03-11] MEDS: ROSUVASTATIN CALCIUM 5 MG TAB PO SCH (09:08)
[2025-03-11 10:12] LABS: Estimated Average Glucose 126 mg/dl
--- NOTE | 2025-03-11 10:16 | Surgery Progress Note ---
Date of Service March 11, 2025 Assessment & Plan (1) Abscess of left upper extremity: Plan: This is clearly organized into an abscess. Discussed options as well as risks and benefits including bleeding infection neurovascular injury etc. I am recommending incision and drainage in the operating room and she agrees. We will perform this later today (2) Cellulitis of left upper extremity: Admission and Anticipated Discharge Date Admission Date: March 10, 2025 Subjective Patient seen. While her arm is looking better in regards to the erythema it continues to organize into a central location and is extremely painful. Physical Exam Constitutional: WD/WN, vitals as above no acute distress and not ill appearing Eyes: PERRL, conjunctivae normal, anicteric sclerae EOM intact bilaterally ENMT: external ear and nose normal, oropharynx normal Ears: no hearing impairment Neck: trachea midline, no thyromegaly Respiratory: normal respiratory effort; no respiratory distress and does not use accessory muscles Cardiovascular: Rate/Rhythm: regular rate and regular rhythm Gastrointestinal (Abdomen): normal bowel sounds, soft, nontender, no hepatosplenomegaly Skin: On her left upper extremity near her cubital fossa there is a large fluctuant abscess. It is quite tender. Psychiatric: Orientation: alert, oriented x 3 and cooperative Results & Data Vital Signs (Past 12 Hours) Vital Signs Temp Pulse Pulse Resp BP Pulse Ox O2 Del Method 03/11/25 07:46 36.7 C 71 18 99/63 L 95 Room Air 03/11/25 07:04 75 03/11/25 03:15 36.6 C 67 16 107/62 97 Room Air 03/10/25 22:58 36.5 C 91 H 16 99/63 L 96 Room Air PG Care Time/CCT Total # of Minutes Spent Total Time Spent with Patient: Total time spent is greater than 50% in coordination of care (as documented) at patient's floor/unit and/or counseling patient: Coding Level of Care Code 64370 SUB INP/OBS CARE 10/10MIN Diagnoses Abscess of left upper extremity L02.414 Cellulitis of left upper extremity L03.114
--- NOTE | 2025-03-11 10:49 | Hospitalist Progress Note ---
Date of Service March 11, 2025 Assessment & Plan (1) Abscess of left upper extremity: (2) Cellulitis of left upper extremity: (3) Lactic acidosis: (4) Bipolar disorder: (5) Borderline personality disorder: (6) Failed back syndrome of lumbar spine: (7) Scoliosis deformity of spine: (8) Amphetamine abuse, episodic: Plan Patient 34-year-old female with cellulitis and abscess formation of the left upper extremity just proximal antecubital fossa due to recent methamphetamine IV drug use. Continue current antibiotics IV Anticipated plan to go to the OR for I&D of abscess later today Continue outpatient medications Discussion with patient about her drug use. She feels as though she has it under control. Does see [facility] for counseling on a regular basis. Has confidence that she takes her mental health medications she will be able to continue to manage this. She is admits to smoking methamphetamine 2-3 times per week. Had not used IV amphetamine for quite some time. Was feeling somewhat depressed and overwhelmed from her chronic back pain and decided to use the IV methamphetamine. She reports that her uses it regularly and that he does okay with that. She states that she will just continue to smoke the methamphetamine but avoid the IV use. Follow surgical cultures and tailor antibiotics pending results Will check MRSA screen Admission and Anticipated Discharge Date Admission Date: March 10, 2025 Subjective Patient states that she has a significant amount of pain in the left arm at the site of the abscess. No withdrawal symptoms. States that she sees [facility] for counseling and that is the extent of what she wants to pursue as far as her illicit drug use and management of that. Physical Exam Physical Exam: Constitutional: Alert, nontoxic HEENT: Mucous membranes moist. Lungs: Clear to auscultation, decreased, no wheezes rales or rhonchi CV: S1-S2, regular Abdomen: Soft, nontender, nondistended Extremities: No significant edema in lower extremities, left upper extremity area of cellulitis and abscess just proximal to the antecubital fossa. Redness has receded from the marked line. There is a abscess with warmth and fluctuance noted Neuro: No focal deficits Psych: Cooperative, normal mood Results & Data Results & Data Vital Signs (Past 12 Hours) Vital Signs Temp Pulse Pulse Resp BP Pulse Ox O2 Del Method 03/11/25 07:46 36.7 C 71 18 99/63 L 95 Room Air 03/11/25 07:04 75 03/11/25 03:15 36.6 C 67 16 107/62 97 Room Air 03/10/25 22:58 36.5 C 91 H 16 99/63 L 96 Room Air Diagnostic Findings Reviewed imaging, laboratory and diagnostic studies. Pertinent findings as below. WBCs 6.6 Hemoglobin 10.5 Electrolytes stable Creatinine 0.74 Confirmatory testing for amphetamine, MDMA and marijuana pending (4) Bipolar disorder Active/Remission status: remission status unspecified Qualified Code(s): F31.9 - Bipolar disorder, unspecified
[2025-03-11] MEDS ORDERED: MIDAZOLAM HCL 1 MG/ML 2ML VIAL ONE (11:55)
[2025-03-11] MEDS ORDERED: LIDOCAINE 2% 2 ML VIAL/AMP(20MG/ML) INFIL ONE (11:55)
[2025-03-11] MEDS ORDERED: fentaNYL citrate PF 100 MCG/2 ML VIAL ONE (11:55)
[2025-03-11] MEDS ORDERED: DEXAMETHASONE SOD INJ 4 MG/ML VIAL ONE (11:55)
[2025-03-11] MEDS ORDERED: PROPOFOL IV EMULSION 10 MG/ML 20 ML VIAL IV ONE ×2 (11:55→13:42)
[2025-03-11] MEDS ORDERED: ONDANSETRON INJ 2 MG/ML 2 ML VIAL ONE (11:55)
[2025-03-11] MEDS: LACTATED RINGER'S 1,000 ML IV SCH (12:24)
[2025-03-11] MEDS ORDERED: PROMETHAZINE HCL 6.25 MG in SODIUM CHLORIDE 0.9% 50 ML IV PRN (13:21)
[2025-03-11] MEDS ORDERED: NALOXONE HCL 0.4 MG/1 ML VIAL/CARP IV PRN (13:21)
[2025-03-11] MEDS ORDERED: FLUMAZENIL 0.1 MG/1 ML 10 ML VIAL IV PRN (13:21)
[2025-03-11] MEDS ORDERED: HYDROmorphone INJ 1 MG/ML SYRINGE IV PRN (13:21)
[2025-03-11] MEDS ORDERED: ePHEDrine sulfate 50 MG/ML AMP IV PRN (13:21)
[2025-03-11] MEDS ORDERED: ATROPINE SULFATE 0.1 MG/ML 10ML SYR IV PRN (13:21)
[2025-03-11] MEDS ORDERED: ONDANSETRON INJ 2 MG/ML 2 ML VIAL IV PRN (13:21)
[2025-03-11] MEDS ORDERED: fentaNYL citrate PF 100 MCG/2 ML VIAL IV PRN (13:21)
--- NOTE | 2025-03-11 13:21 | Pharmacy Report ---
Pharmacy PK ABX Note - Date of Service March 11, 2025 - Assessment and Plan Assessment 34 year old F receiving vancomycin and Zosyn for treatment of cellulitis and abscess of the LUE secondary to IV drug use. She reportedly completed a course of Bactrim and Keflex as an outpatient without significant improvement. -Blood cultures x 2 from 03/10 are no growth to date (prelim). -She is scheduled for I&D today. Day # 2 of antimicrobial therapy. Plan Vancomycin * Loading dose: 1500 mg IV x 1 * Maintenance dose: 750 mg IV every 8 hours * Regimen is predicted to achieve target AUC/ABNER of 400-600 mg/L.hr * Random level will be ordered if the vancomycin is continued beyond 48 hours. Zosyn * 4.5gm iv q 8 hours. Pharmacy will continue to follow and will adjust dose/frequency as necessary. Thank you. Pharmacy has transitioned to AUC monitoring for vancomycin. AUC/ABNER is the preferred PK/PD target and is associated with decreased risk of nephrotoxicity compared to traditional trough targets.
--- NOTE | 2025-03-11 13:21 | Anesthesiology Consultation ---
Date of Service March 11, 2025 Assessment & Plan Chart Review Chart Review: Acceptable Risk for Surgery and Patient NOT seen in Pre Admission Testing Consults Requested none ASA [id number] Proposed Anesthesia Anesthesia Type: General Risk / Benefits Reviewed With: PT / POA / Parent / Guardian, Accepts Plan and Informed Consent Obtained History Surgery Operation Date: 03/11/25 08:20 Proposed Procedures p Left Arm Abscess Incision and Drainage - Sarmad Patel, DO Height/Weight Height: 5 ft 1 in Weight: 82.1 kg Allergies Allergy/AdvReac Type Severity Reaction Status Date / Time cat dander Allergy Intermediate HIVES, Verified 08/21/23 10:26 CONGESTION dog dander Allergy Intermediate HIVES, Verified 08/21/23 10: CONGESTION grass pollen-perennial rye, Allergy Intermediate HIVES,CONGE Verified 08/21/23 10: standar STION house dust Allergy Intermediate CONGESTION Verified 08/21/23 10:26 Medications Home Medications Medication Instructions Recorded Confirmed Last Taken albuterol sulfate 90 mcg/actuation 1 - 2 puff inhalation Q4H PRN SOB 07/04/21 03/10/25 04/25/23 aerosol inhaler (ProAir HFA) or Wheezing acetaminophen 500 mg tablet 500 mg PO HS 05/06/23 03/10/25 11/26/23 20:00 (Tylenol Extra Strength) docusate sodium 100 mg capsule 100 mg PO BID 05/18/23 03/10/25 10/12/24 22:00 (Stool Softener) hydroxyzine HCl 25 mg tablet 50 mg PO Q4H PRN Anxiety 05/18/23 03/10/25 10/12/24 lidocaine 5 % topical patch 3 patch topical DAILY #30 ea 05/18/23 03/10/25 Unknown bupropion HCl 100 mg tablet,12 hr 100 mg PO QAM 03/10/25 03/10/25 Unknown sustained-release cariprazine 3 mg capsule (Vraylar) 3 mg PO QAM 03/10/25 03/10/25 Unknown cholecalciferol (vitamin D3) 50 50 mcg PO QAM 03/10/25 03/10/25 Unknown mcg (2,000 unit) capsule (Vitamin D3) cyclobenzaprine 10 mg tablet 10 mg PO HS 03/10/25 03/10/25 Unknown gabapentin 100 mg capsule 100 mg PO QAM 03/10/25 03/10/25 Unknown ibuprofen 600 mg tablet 600 mg PO 03/10/25 03/10/25 Unknown loratadine 10 mg tablet 10 mg PO [facility] 03/10/25 03/10/25 Unknown mirabegron 50 mg tablet,extended 50 mg PO [facility] 03/10/25 03/10/25 Unknown release 24 hr (Myrbetriq) nicotine 21 mg/24 hr daily 1 patch topical DAILY 03/10/25 03/10/25 Unknown transdermal patch oxcarbazepine 300 mg tablet 300 mg PO BID 03/10/25 03/10/25 Unknown rosuvastatin 5 mg tablet (Crestor) 5 mg PO [facility] 03/10/25 03/10/25 Unknown solifenacin 5 mg tablet 5 mg PO [facility] 03/10/25 03/10/25 Unknown trazodone 100 mg tablet 100 mg PO 03/10/25 03/10/25 Unknown Active Medications Generic Name Dose Route Start Last Admin Trade Name Freq PRN Reason Stop Dose Admin Bupropion HCl 100 mg 03/11/25 09:00 03/11/25 09:07 Bupropion Sr 100 Mg Tabcr PO 04/10/25 08:59 100 mg QAM JADE Administration Cariprazine 3 mg 03/11/25 09:00 03/11/25 09:07 Cariprazine Hcl 3 Mg Cap PO 04/10/25 08:59 3 mg QAM JADE Administration Cyclobenzaprine HCl 10 mg 03/10/25 21:00 03/10/25 20:46 Cyclobenzaprine Hcl 10 Mg Tab PO 04/09/25 20:59 10 mg HS JADE Administration Docusate Sodium 100 mg 03/10/25 21:00 03/11/25 09:07 Docusate Sodium 100 Mg Cap PO 04/09/25 20:59 100 mg BID JADE Administration Gabapentin 100 mg 03/11/25 09:00 03/11/25 09:08 Gabapentin 100 Mg Cap PO 04/10/25 08:59 100 mg QAM JADE Administration Sodium Chloride 1,000 mls @ 65 mls/hr 03/10/25 15:15 03/11/25 06:31 Nss IV 03/13/25 15:14 65 mls/hr .[id number] JADE Administration Piperacillin Sod/Tazobactam Sod 4.5 gm in 100 mls @ 25 mls/hr 03/10/25 23:00 03/11/25 10:53 Zosyn IV 03/12/25 22:59 Infused Q8H JADE Infusion Protocol Vancomycin HCl 750 mg/ Sodium 265 mls @ 200 mls/hr 03/11/25 09:00 03/11/25 10:53 Chloride IV 03/13/25 08:59 Infused Q8H JADE Infusion Lactated Ringer's 1,000 mls @ 0 mls/hr 03/11/25 12:30 03/11/25 12:24 Lr IV 03/14/25 12:29 15 mls/hr .Q0M JADE Administration KVO Lidocaine 3 patch 03/10/25 19:45 03/10/25 20:38 Lidocaine 5% 1 Patch TD 04/09/25 19:44 3 patch HS JADE Administration Loratadine 10 mg 03/11/25 09:00 03/11/25 09:08 Loratadine 10 Mg Tab PO 04/10/25 08:59 10 mg QAM JADE Administration Miscellaneous 1 each 03/11/25 08:59 03/11/25 09:07 Remove Nicoderm Patch N/A 04/10/25 08:58 1 each DAILY@0859 JADE Administration Miscellaneous 1 each 03/11/25 09:00 03/11/25 09:08 Remove Lidoderm Patch N/A 04/10/25 08:59 1 each DAILY@0900 JADE Administration Nicotine 1 patch 03/10/25 14:30 03/11/25 09:08 Nicotine 21 Mg/24 Hr Tdsy TD 04/09/25 14:29 1 patch DAILY JADE Administration Oxcarbazepine 300 mg 03/10/25 21:00 03/11/25 09:08 Oxcarbazepine 150 Mg Tablet PO 04/09/25 20:59 300 mg BID JADE Administration Oxybutynin Chloride 5 mg 03/11/25 09:00 03/11/25 09:08 Oxybutynin Chloride Xl 5 Mg Tabcr PO 04/10/25 08:59 5 mg QAM JADE Administration Rosuvastatin Calcium 5 mg 03/11/25 09:00 03/11/25 09:08 Rosuvastatin Calcium 5 Mg Tab PO 04/10/25 08:59 5 mg QAM JADE Administration Trazodone HCl 100 mg 03/10/25 21:00 03/10/25 20:45 Trazodone Hcl 100 Mg Tab PO 04/09/25 20:59 100 mg HS JADE Administration Vibegron 75 mg 03/11/25 09:00 03/11/25 09:08 Vibegron 75 Mg Tab PO 04/10/25 08:59 75 mg QAM JADE Administration Vitamin D 50 mcg 03/11/25 09:00 03/11/25 09:07 Cholecalciferol 25 Mcg (1000 Units) Tab PO 04/10/25 08:59 50 mcg QAM JADE Administration NPO Date Last Intake of Fluids: 03/11/25 Time Last Intake of Fluids: 09:00 Last Intake of Fluids Comment: sip with med Date Last Intake of Solids: 03/10/25 Time Last Intake of Solids: 18:00 Past Medical History Medical History Anxiety Neck pain Controlled type 2 diabetes mellitus Lab test negative for COVID-19 virus Anxiety Superficial phlebitis Elevated WBC count H/O diabetes mellitus Otitis externa of right ear Ear pain Gestational diabetes Situational stress Substance abuse Abnormal weight loss Anorexia Dysmenorrhea History of female sterilization Memory loss Pharyngitis Pneumonia (04/26/13) Secondary amenorrhea Weakness No pertinent family history Acute pyelonephritis History of sterilization procedure Anxiety Bipolar smokes amphetamine and skin pops amphetamine Exercise / Class Metabolic Activity II 4-5 Yardwork/Stairs/Walk up hill Past Family History Family History Grandmother (Paternal) Breast cancer Daughter Asthma Grandfather (Maternal) Colorectal cancer Mother Diabetes Stomach cancer Grandfather (Paternal) Lung cancer Uncle Lung cancer Other No pertinent family history Denies family history of Hypertension Past Surgical History Surgical History S/P tubal ligation S/P tonsillectomy History of salpingo-oophorectomy History of laparoscopy S/P section S/P LEEP of cervix H/O adenoidectomy History of tubal ligation (04/12/13) S/P removal of left ovary (04/12/13) Past Anesthesia History No Hx of Anesthesia Complications and No Family Hx of Anesthesia Complications History of PONV No Hx of PONV and No Hx of Motion Sickness Social History Smoking Status: Current every day smoker tobacco type: e-cigarettes Smoking cigarettes per day: 1 pack Do You Dip or Chew Tobacco: No Hx Alcohol Use: Yes alcohol intake frequency: a few times a week Alcohol Intake Frequency Comment: every 2-3 months per pt report Hx Substance Use: Yes substance use type: marijuana and methamphetamine Substance Use Type Other:: medical marijuana Last Used Substance: Hours (ago) Last Used Substance Other:: reports meth use this morning Physical Exam Vital Signs Last Vital Signs Temp 36.8 C 03/11/25 12:22 Pulse 72 03/11/25 12:22 Resp 18 03/11/25 12:22 BP 107/62 03/11/25 12:22 Pulse Ox 98 03/11/25 12:22 O2 Del Method Room Air 03/11/25 12:22 Constitutional + obese; no acute distress ENMT Mouth: no dentition abnormality Thyromental Distance: < 3.5 Finger Breadths Mallampati Class: II Neck normal visual inspection and trachea midline; neck extension not limited Respiratory normal respiratory effort Auscultation: lungs clear to auscultation bilaterally Cardiovascular Rate/Rhythm: regular rate and regular rhythm Heart Sounds: no murmur Vessels: no carotid bruit Musculoskeletal Spine: + limited cervical ROM and + pain with cervical ROM Extremities: full ROM of extremities Neurologic moves all extremities Motor/Sensory: no sensory deficit Psychiatric Orientation: alert and oriented x 3 Testing Laboratory Results 03/11/25 06:07 03/11/25 06:07 Hemoglobin A1c 6.0 % (4.5-5.6) H 03/11/25 06:07 03/10/25 12:12 Aerobic Blood Culture - Preliminary Blood No growth in Aerobic bottle after 24 hours. 03/10/25 12:07 Aerobic Blood Culture - Preliminary Blood No growth in Aerobic bottle after 24 hours.
[2025-03-11] MEDS: BUPIVACAINE/EPINEPHRINE 0.5% MPF 1:200,000 30 ML VIAL ONE (13:51)
--- NOTE | 2025-03-11 14:00 | Operative Report ---
PG Post Operative Report Pre & Post Diagnosis Operation Date: 03/11/25 08:20 Pre-Op Diagnosis: (1) Abscess of left upper extremity: Post-Op Diagnosis: (1) Abscess of left upper extremity: I identified the patient and participated in the time-out.: Yes Procedure Operation Date: 03/11/25 08:20 Actual Procedures p Left Arm Abscess Incision and Drainage(Left) - Sarmad Patel DO Surgeon Sarmad Patel DO On Air Personality saida Coffman Estimated Blood Loss 5 Findings Consistent with Post-Op Diagnosis Specimens abcess fluid for gram stain/cx Description of Procedure After informed consent was obtained the patient was taken to the operating room and placed in supine position. After successful placement of the airway the entire left arm was sterilely prepped and draped in usual fashion. I began by using a 15 blade scalpel to make a horizontal incision directly over the visible abscess. This released a moderate amount of purulent fluid. It was not foul- smelling. A sample was taken with a culture swab and sent for Gram stain culture and sensitivity. Wound was thoroughly irrigated. It was packed with quarter inch iodoform packing gauze gauze Epifanio and an Gino bandage. The patient was awakened extubated and transferred to recovery in stable condition. I attest to the content of the Intraoperative Record and any orders documented therein. Any exceptions are noted below.
--- NOTE | 2025-03-11 15:13 | Anesthesiology Progress Note ---
Date of Service March 11, 2025 Anesthesia Post Procedure Vital Signs Vital Signs: Temp Pulse Pulse Pulse Resp BP Pulse Ox 03/11/25 15:10 64 16 101/60 94 03/11/25 14:55 63 18 107/58 L 95 03/11/25 14:40 36.8 C 66 12 105/59 L 98 03/11/25 14:30 65 18 99/60 L 97 03/11/25 14:20 61 14 97/53 L 99 03/11/25 14:10 62 12 99/46 L 97 03/11/25 14:00 36.4 C L 67 15 89/45 L 97 03/11/25 12:22 36.8 C 72 18 107/62 98 03/11/25 07:46 36.7 C 71 18 99/63 L 95 03/11/25 07:04 75 03/11/25 03:15 36.6 C 67 16 107/62 97 03/10/25 22:58 36.5 C 91 H 16 99/63 L 96 03/10/25 21:45 85 03/10/25 19:23 36.6 C 94 H 16 105/65 97 03/10/25 17:10 74 03/10/25 16:56 36.4 C L 18 103/68 97 03/10/25 16:56 03/10/25 16:10 78 Pulse Ox O2 Del Method O2 Del Method O2 Flow Rate 03/11/25 15:10 Room Air 03/11/25 14:55 Room Air 03/11/25 14:40 Room Air 03/11/25 14:30 Room Air 03/11/25 14:20 Oxymask 4 03/11/25 14:10 Oxymask 4 03/11/25 14:00 Oxymask 6 03/11/25 12:22 Room Air 03/11/25 07:46 Room Air 03/11/25 07:04 03/11/25 03:15 Room Air 03/10/25 22:58 Room Air 03/10/25 21:45 03/10/25 19:23 Room Air 03/10/25 17:10 03/10/25 16:56 Room Air 03/10/25 16:56 97 Room Air 03/10/25 16:10 Pain Intensity Left Arm: Pain Intensity: 5 Back: Pain Intensity: 4 Transfer of Care Handoff Completed per policy Notes Mental Status: alert / awake / arousable Patient Amnestic to Procedure: Yes Nausea / Vomiting: adequately controlled Pain: adequately controlled Airway Patency, RR, SpO2: stable & adequate BP & HR: stable & adequate Hydration State: stable & adequate Anesthetic Complications: no major complications apparent
[2025-03-11] MEDS: ACETAMINOPHEN 325 MG TAB PO PRN (22:46)
[2025-03-11] MEDS: hydrOXYzine HCl 25 MG TAB PO PRN (22:46)
[2025-03-12 07:17] VITALS: RESP 16
[2025-03-12 08:27] LABS: Basophils # (auto) 0.01 K/uL (0.00-0.20); Basophils % (auto) 0.1 %; Eosinophils # (auto) 0.02 K/uL (0.00-0.50); Eosinophils % (auto) 0.2 %; Hematocrit (blood only) 33.1 % (37.0-47.0); Hemoglobin 11.2 g/dl (12.0-16.0); Immature Granulocytes # (auto) 0.12 K/uL (0.01-0.20); Immature Granulocytes % (auto) 0.9 %; Lymphocytes # (auto) 2.36 K/uL (1.20-3.40); Lymphocytes % (auto) 18.1 %; Mean Corpuscular Hemoglobin 30.2 pg (25.0-34.0); Mean Corpuscular Hgb Conc 33.8 g/dL (32.0-36.0); Mean Corpuscular Volume 89.2 fL (80.0-100.0); Mean Platelet Volume 9.4 fL (9.4-12.4); Monocytes # (auto) 0.86 K/uL (0.11-0.59); Monocytes % (auto) 6.6 %; Neutrophils # (auto) 9.67 K/uL (1.40-6.50); Neutrophils % (auto) 74.1 %; Platelet Count 331 K/uL (130-400); RDW Coefficient of Variation 13.4 % (11.5-14.5); RDW Standard Deviation 43.8 fL (36.4-46.3); Red Blood Count 3.71 M/uL (4.20-5.40); White Blood Count 13.04 K/ul (4.8-10.8)
[2025-03-12 08:41] LABS: BUN Creatinine Ratio 10.7 (10-20); Calcium 8.4 mg/dl (8.6-10.3); Creatinine Clr Calc Pharmacy 100.6 ml/min; Phosphorus 2.6 mg/dl (2.5-4.9); Potassium 3.3 mmol/L (3.5-5.1)
--- NOTE | 2025-03-12 09:02 | Discharge Summary ---
Discharge Summary Date of Service March 12, 2025 Principal Dx & Hospital Course #1 = Principal Diagnosis (1) Abscess of left upper extremity: (2) Cellulitis of left upper extremity: (3) Lactic acidosis: (4) Bipolar disorder: (5) Borderline personality disorder: (6) Failed back syndrome of lumbar spine: (7) Scoliosis deformity of spine: (8) Amphetamine abuse, episodic: Plan Ms. Cherry is a 34-year-old female with cellulitis and abscess formation of the left upper extremity just proximal antecubital fossa due to recent methamphetamine IV drug use. Patient is POD #1 I&D of left forearm with Dr. Patel (03/11) Cultures with few WBCS and NGTD. MRSA negative. Patient seen by surgery the am of d/c and wound was re-packed with 1/4 inch plain gauze and covered with 4x4s and TRISTAN wrap. Patient with follow up coordinated. Patient transitioned to 8 more days of oral antibiotics (doxy and augmentin). Patient counselled once more on d/c regarding drug use and any other resources needed. Patient states she has the resources she needs and is aware she needs to stabilze her moods. She endorses understanding for follow up. Notes For Next Care Provider Medication Changes From Visit doxycycline 100mg bid augmentin 875mg bid Admission HPI Per Admitting Provider Patient is a 34-year-old female with past medical history significant for prediabetes, asthma, urinary incontinence, cervical disc disorder, lumbar DDD, PTSD, methamphetamine abuse, cannabis use, borderline personality disorder, major depressive disorder, bipolar disorder and other problems listed below who presented to the ED for evaluation of an infection in her LUE. History obtained from the patient, discussion with ED provider and associated chart review. Reports developing erythema and tenderness just superior to her left antecubital fossa approximately 10 days ago after injecting herself with methamphetamine. Patient states she "missed" the correct area when injecting the methamphetamine. She was seen and evaluated in [place] ED on 02/28/25 for this and started on oral Bactrim plus oral Keflex, which she mentions compliance with. However, she is still experiencing erythema and tenderness to palpation above her left antecubital fossa. And now, this area appears fluctuant. She attempted to drain this area 2 days ago using a diabetic needle but there was no drainage. She has not noticed any spontaneous drainage from this area since it first developed. No reported fevers since this all began, however, she does endorse experiencing some body aches and chills about 8 days ago. She completed the Bactrim course in its entirety however she did not yet complete the Keflex course as she still has 1 pill remaining. She was prescribed a 7-day course of each. Initially there was erythematous streaking both superiorly and inferiorly in proximity to the left elbow approximately 3-5 days after the initial patch of erythema developed above the antecubital fossa, however, this has resolved. She denies any methamphetamine use since the left upper extremity erythema developed. Denies any chest pain, SOB or abdominal pain. Did have an isolated bout of diarrhea on 02/28/25 but no other reported incidences of such. No alcohol use. Occasional marijuana use. Admission Exam Per Admitting Provider General: NAD, sitting up in bed, A&Ox4, conversing appropriately HEENT: Normocephalic, atraumatic, oropharynx normal Respiratory: Normal respiratory effort, lungs clear to auscultation bilaterally Cardiovascular: Regular rate, rhythm, normal peripheral pulses, no BLE edema Abdomen/GI: Normal bowel sounds, soft, nontender to palpation in all quadrants Extremities/MSK: No cyanosis or clubbing, extremities motor strength intact, moves all extremities Neurologic: No overt focal deficits, CN's II-XI not formally tested but appear grossly intact bilaterally Skin: Area of erythema superior to L antecubital fossa - warm to touch, TTP, fluctuant (pictured below); no active drainage Discharge Exam Constitutional WD/WN, vitals as above Respiratory normal respiratory effort, lungs clear to auscultation Cardiovascular RRR, no murmur, no edema Skin LUE dressing CDI Updated Medication List Medication Instructions Recorded Confirmed Type albuterol sulfate 90 mcg/actuation 1 - 2 puff inhalation Q4H PRN SOB 07/04/21 03/10/25 History aerosol inhaler (ProAir HFA) or Wheezing acetaminophen 500 mg tablet 500 mg PO HS 05/06/23 03/10/25 History (Tylenol Extra Strength) docusate sodium 100 mg capsule 100 mg PO BID 05/18/23 03/10/25 History (Stool Softener) hydroxyzine HCl 25 mg tablet 50 mg PO Q4H PRN Anxiety 05/18/23 03/10/25 History lidocaine 5 % topical patch 3 patch topical DAILY #30 ea 05/18/23 03/10/25 Rx bupropion HCl 100 mg tablet,12 hr 100 mg PO QAM 03/10/25 03/10/25 History sustained-release cariprazine 3 mg capsule (Vraylar) 3 mg PO QAM 03/10/25 03/10/25 History cholecalciferol (vitamin D3) 50 50 mcg PO QAM 03/10/25 03/10/25 History mcg (2,000 unit) capsule (Vitamin D3) cyclobenzaprine 10 mg tablet 10 mg PO HS 03/10/25 03/10/25 History gabapentin 100 mg capsule 100 mg PO QAM 03/10/25 03/10/25 History ibuprofen 600 mg tablet 600 mg PO HS 03/10/25 03/10/25 History loratadine 10 mg tablet 10 mg PO QAM 03/10/25 03/10/25 History mirabegron 50 mg tablet,extended 50 mg PO QAM 03/10/25 03/10/25 History release 24 hr (Myrbetriq) nicotine 21 mg/24 hr daily 1 patch topical DAILY 03/10/25 03/10/25 History transdermal patch oxcarbazepine 300 mg tablet 300 mg PO BID 03/10/25 03/10/25 History rosuvastatin 5 mg tablet (Crestor) 5 mg PO QAM 03/10/25 03/10/25 History solifenacin 5 mg tablet 5 mg PO QAM 03/10/25 03/10/25 History trazodone 100 mg tablet 100 mg PO HS 03/10/25 03/10/25 History amoxicillin 875 mg-potassium 1 tab PO BIDM 8 days #16 tabs 03/12/25 Rx clavulanate 125 mg tablet doxycycline hyclate 100 mg capsule 100 mg PO BID 8 days #16 caps 03/12/25 Rx Hospital Stay Data Consultations 03/10/25 12:58 ED Decision to Admit Stat 03/10/25 13:25 Consult General Surgery Routine Procedures Performed Operation Date: 03/11/25 08:20 Actual Procedures p Left Arm Abscess Incision and Drainage(Left) - Sarmad Patel, DO Diagnostic Imagining Performed 03/10/25 12:18 US extremity non-vascular ltd Stat 03/10/25 14:22 US venous duplex arm [US venous doppler UE LT] Urgent Discharge Instructions Given to Patient (Per Discharging Provider) change dressing to left arm around daily with 1/4" plain gauze (place in wound and cut to size), cover with dry 4x4 gauze, and then wrap arm with TRISTAN wrap. Total Time Total Time Spent Total Time Spent (In Minutes): 45
--- NOTE | 2025-03-12 09:29 | Surgery Progress Note ---
Date of Service March 12, 2025 Assessment & Plan (1) Abscess of left upper extremity: Plan: Patient is POD #1 I&D of left forearm with Dr. Patel -Patient was seen and evaluated this morning, patient's wound was re-packed with 1/4 inch plain gauze and covered with 4x4s and TRISTAN wrap. She was instructed on how to care for the wound at home and feels comfortable with packing changes. She should do this once daily. -Patient will need to be seen within the next week or so in our outpatient surgery clinic with Dr. Patel -Recommend continuing oral antibiotics -Patient may return to work, however she was instructed to keep her arm covered at all times. -From a surgical standpoint, patient is stable for discharge when medical team deems appropriate. Surgery will sign off, please re-call with any questions or concerns - Dr. Sales confectionery cooker over the weekend. Admission and Anticipated Discharge Date Admission Date: March 10, 2025 Subjective Patient is POD #1 I&D of left forearm with Dr. Patel. Doing well this morning, states the TRISTAN bandage is too tight Packing was changed at bedside, patient tolerated well, she was also educated how to care for wound at home. WBC elevated today at 13, however could be reactive due to recent surgery. Otherwise no fevers or chills reported overnight. Patient still receiving ABX Physical Exam Constitutional: WD/WN, vitals as above Respiratory: normal respiratory effort, lungs clear to auscultation Cardiovascular: RRR, no murmur, no edema Gastrointestinal (Abdomen): normal bowel sounds, soft, nontender, no hepatosplenomegaly Skin: Left forearm with TRISTAN/surgical dressing in place. This was taken down and gauze packing was removed. Erythema still present around forearm and tender around I&D site. No active bleeding or drainage present. Site was re-packed with 1/4 inch plain gauze packing and re-dressed with 4x4s and TRISTAN. Results & Data Vital Signs (Past 12 Hours) Vital Signs Temp Pulse Pulse Resp BP Pulse Ox O2 Del Method 03/12/25 07:16 36.6 C 82 16 127/72 99 Room Air 03/12/25 03:17 36.7 C 78 18 104/64 96 Room Air 03/11/25 23:14 36.6 C 80 18 102/62 96 Room Air PG Care Time/CCT Total # of Minutes Spent Total Time Spent with Patient: Total time spent is greater than 50% in coordination of care (as documented) at patient's floor/unit and/or counseling patient: [place] [address] Post Operative Follow-Up Patient Type Established History Problem Focused Exam Problem Focused Medical Decision Making Straight Forward Diagnoses Abscess of left upper extremity L02.414
[2025-03-12] MEDS: AMOXICILLIN/CLAVULANATE 875 MG TAB PO SCH (09:36)
[2025-03-12] MEDS: DOXYCYCLINE HYCLATE 100 MG CAP PO SCH (09:36)
[2025-03-12 11:46] VITALS: BP 129/75; PULSE 74; TEMP 98.1; O2SAT 93
== END 2025-03-12 12:36 | disposition home or self-care (01) | DRG 603 ==
LOC: ED 11:12 → SUATTDRO 13:20 → 2N 13:20 → 3W 03-11 15:50
DX: M41.9 Scoliosis, unspecified; J45.909 Unspecified asthma, uncomplicated; R32 Unspecified urinary incontinence; N32.81 Overactive bladder; F60.3 Borderline personality disorder; L02.414 Cutaneous abscess of left upper limb; L03.114 Cellulitis of left upper limb; F41.1 Generalized anxiety disorder; F43.10 Post-traumatic stress disorder, unspecified; U07.0 Vaping-related disorder; E11.9 Type 2 diabetes mellitus without complications; F15.10 Other stimulant abuse, uncomplicated; M54.89 Other dorsalgia; F12.10 Cannabis abuse, uncomplicated; M96.1 Postlaminectomy syndrome, not elsewhere classified; E78.5 Hyperlipidemia, unspecified; F31.9 Bipolar disorder, unspecified; E87.20 Acidosis, unspecified; F17.290 Nicotine dependence, other tobacco product, uncomplicated